=== PATIENT | female | born 1985 | race Caucasian/White ===

== ENCOUNTER 2016-09-19 16:57 | Emergency (ER) | payer MEDICAID ==
--- NOTE | 2016-09-19 17:14 | ER Document Report ---
ED Medical Screen (RME) - General Stated Complaint: CONGESTION Notes: onset was 2 weeks ago. c/o sinus congestion and pain with dark green drainage and productive cough. body aches and head ache. does have a history of asthma I have greeted and performed a rapid initial assessment of this patient. A comprehensive ED assessment and evaluation of the patient, analysis of test results and completion of the medical decision making process will be conducted by additional ED providers. TRAVEL OUTSIDE OF THE [place] IN LAST 30 DAYS: No - Related Data Allergies/Adverse Reactions: No Known Allergies Allergy (Verified 09/19/16 17:12) Past Medical History Pulmonary Medical History: Reports: Hx Asthma Past Surgical History: Reports: Hx Tonsillectomy - tubes in ers. Denies: Hx Tubal Ligation - Immunizations Hx Diphtheria, Pertussis, Tetanus Vaccination: Yes Physical Exam - Vital signs Vitals: Temp Pulse Resp BP Pulse Ox 97.7 F 92 18 124/71 100 09/19/16 17:11 09/19/16 17:11 09/19/16 17:11 09/19/16 17:11 09/19/16 17:11 Course - Vital Signs Vital signs: Temp Pulse Resp BP Pulse Ox 97.7 F 92 18 124/71 100 09/19/16 17:11 09/19/16 17:11 09/19/16 17:11 09/19/16 17:11 09/19/16 17:11
[2016-09-19] MEDS ORDERED: ACETAMINOPHEN 325 MG TABLET PO ONE (17:15)
--- NOTE | 2016-09-19 17:24 | ER Document Report ---
HPI - HPI Patient complains to provider of: head congestion, cough Onset: Other - 1 week Onset/Duration: Worse Quality of pain: Achy Pain Level: 4 Context: 31-year-old female has been sick for one month intermittently. She had amoxicillin and azithromycin for sinus infection last 08-30-16 she thought she was getting better but this past week she developed increased head congestion and a very congested cough. She is coughing up green sputum. No fever. No shortness of breath. No chest pain. No abdominal pain. No nausea vomiting or diarrhea. History of asthma Associated Symptoms: None Exacerbated by: Other - Leaning forward Relieved by: Denies Similar symptoms previously: No Recently seen / treated by doctor: No - ROS ROS below otherwise negative: Yes Systems Reviewed and Negative: Yes All other systems reviewed and negative - REPRODUCTIVE Reproductive: DENIES: : - DERM Skin Color: Normal Past Medical History - General Information source: Patient - Social History Smoking Status: Current Every Day Smoker Chew tobacco use (# tins/day): No Frequency of alcohol use: None Drug Abuse: None Lives with: Family Family History: Reviewed & Not Pertinent Patient has suicidal ideation: No Patient has homicidal ideation: No Pulmonary Medical History: Reports: Hx Asthma Renal/ Medical History: Denies: Hx Peritoneal Dialysis Past Surgical History: Reports: Hx Tonsillectomy - tubes in ers - Immunizations Hx Diphtheria, Pertussis, Tetanus Vaccination: Yes Vertical Provider Document - CONSTITUTIONAL Agree With Documented VS: Yes Exam Limitations: No Limitations - INFECTION CONTROL TRAVEL OUTSIDE OF THE [place] IN LAST 30 DAYS: No - HEENT HEENT: Normocephalic, Pharyngeal Erythema. negative: Conjuctival Injection, Tympanic Membrane Red, Tympanic Membrane Bulging Notes: Boggy nares - NECK Neck: Supple. negative: Lymphadenopathy-Left, Lymphadenopathy-Right - RESPIRATORY Respiratory: No Respiratory Distress, Wheezing - Inspiratory and expiratory coarse bilateral O2 Sat by Pulse Oximetry: 100 - CARDIOVASCULAR Cardiovascular: Regular Rate, Regular Rhythm - MUSCULOSKELETAL/EXTREMETIES Musculoskeletal/Extremeties: BUBBA CANALES - NEURO Level of Consciousness: Awake, Alert - DERM Integumentary: Warm, Dry, No Rash Course - Re-evaluation Re-evalutation: 09/19/16 18:09 Influenza is negative 09/19/16 18:42 Chest X-ray is negative 09/19/16 18:45 minimal wheeze after the nebulizer, feels better. - Vital Signs Vital signs: Temp Pulse Resp BP Pulse Ox 97.7 F 92 18 124/71 100 09/19/16 17:11 09/19/16 17:11 09/19/16 17:11 09/19/16 17:11 09/19/16 17:11 Discharge - Discharge Clinical Impression: Bronchitis, Wheezing Upper respiratory infection Qualifiers: URI type: acute nasopharyngitis (common cold) Qualified Code(s): J00 - Acute nasopharyngitis [common cold] Condition: Good Disposition: HOME, SELF-CARE Instructions: Acetaminophen, Upper Respiratory Illness ([facility]), Bronchitis With Bronchospasm (Wheezing) ([facility]) Additional Instructions: Use the inhaler, stop smoking Use the nebulizer every 4 hours as needed for cough and wheeze Finish the prednisone See your doctor for follow-up if you do not get better or new symptoms or feeling worse Prescriptions: Albuterol Sulfate [Ventolin 0.083% Neb 2.5 mg/3 mL Ampul] 2.5 mg NEB Q3HP PRN # 25 vial PRN Reason: Albuterol Sulfate [Proair HFA Inhalation Aerosol 8.5 gm MDI] 2 puff IH Q3HP PRN #1 [id number] PRN Reason: Prednisone [Deltasone 20 mg Tablet] 40 mg PO DAILY #8 tablet Forms: Return to Work
[2016-09-19] MEDS ORDERED: MECLIZINE HCL 25 MG TABLET PO ONE (17:43)
[2016-09-19] MEDS ORDERED: IPRATROPIUM/ALBUTEROL 0.5-2.5 MG/3 ML AMPUL NEB ONE (18:36)
[2016-09-19] MEDS ORDERED: PREDNISONE 20 MG TABLET PO ONE (18:42)
[2016-09-19 18:59] VITALS: BP 118/70
== END 2016-09-19 18:59 | disposition home or self-care (01) ==
LOC: ER 16:57
DX: J00 Acute nasopharyngitis [common cold] (principal); J40 Bronchitis, not specified as acute or chronic; R68.89 Other general symptoms and signs; F17.200 Nicotine dependence, unspecified, uncomplicated
CPT/HCPCS: 94640; 99284; 87804; 71020; J3490; J7512; J7620

== ENCOUNTER 2017-01-01 11:31 | Emergency (ER) | payer MEDICAID ==
[2017-01-01] MEDS ORDERED: IPRATROPIUM/ALBUTEROL 0.5-2.5 MG/3 ML AMPUL NEB ONE (12:04)
[2017-01-01] MEDS ORDERED: PREDNISOLONE SOD PHOS 15 MG/5 ML ORAL SYRING PO ONE (12:04)
[2017-01-01] MEDS ORDERED: PREDNISONE 20 MG TABLET PO ONE (12:07)
--- NOTE | 2017-01-01 12:09 | ER Document Report ---
ED Respiratory Problem - General Chief Complaint: Breathing Difficulty Stated Complaint: EAR PAIN,CHEST CONGESTION Time Seen by Provider: 01/01/17 12:04 Notes: Patient says that she has been having difficulty with her asthma since today afternoon. She has been coughing and producing yellow phlegm. Also has a left earache for the past 2 days. No vomiting. Unaware of any fever. Patient has a history of asthma for which she takes an albuterol inhaler. TRAVEL OUTSIDE OF THE [place] IN LAST 30 DAYS: No - Related Data Allergies/Adverse Reactions: No Known Allergies Allergy (Verified 01/01/17 11:42) Past Medical History - Social History Smoking Status: Former Smoker - Stopped about 6 months ago. Chew tobacco use (# tins/day): No Frequency of alcohol use: Occasional Drug Abuse: None Family History: Reviewed & Not Pertinent Patient has suicidal ideation: No Patient has homicidal ideation: No Pulmonary Medical History: Reports: Hx Asthma Renal/ Medical History: Denies: Hx Peritoneal Dialysis Past Surgical History: Reports: Hx Tonsillectomy - tubes in ers. Denies: Hx Tubal Ligation - Immunizations Hx Diphtheria, Pertussis, Tetanus Vaccination: Yes Review of Systems - Review of Systems Constitutional: denies: Fever Cardiovascular: Dyspnea. denies: Chest pain Respiratory: Cough - Active of some yellow phlegm Gastrointestinal: denies: Abdominal pain Genitourinary: No symptoms reported Skin: denies: Rash Physical Exam - Vital signs Vitals: Temp Pulse Resp BP Pulse Ox 97.7 F 81 18 132/82 H 100 01/01/17 11:43 01/01/17 11:43 01/01/17 11:43 01/01/17 11:43 01/01/17 11:43 Interpretation: Normal - Notes Notes: PHYSICAL EXAMINATION: GENERAL: Well-appearing, in no acute distress. Signs are all normal. HEAD: Atraumatic, normocephalic. ENT: oropharynx clear without exudates. Moist mucous membranes. Left TM is bright red throughout. NECK: Normal range of motion, supple. LUNGS: Scattered wheezes throughout both lung beasley. HEART: Regular rate and rhythm without murmurs. ABDOMEN: Soft, nontender. No guarding or rebound. BACK: No tenderness throughout entire back. EXTREMITIES: Normal range of motion without pain. Negative Homans bilateral. NEUROLOGICAL: Normal speech, normal gait. Normal sensory, motor, and reflex exams. Awake, alert, and oriented x3. Cranial nerves normal. SKIN: Warm, dry, no rashes. Course - Re-evaluation Re-evalutation: 01/01/17 13:09 After second neb, patient's lungs are almost clear without any significant wheezing heard. Better as well. Plan to discharge her on a short course of prednisone and a Z-David for her left ear infection and upper respiratory infection. A replacement for her pro-air inhaler will be provided. 01/01/17 13:20 Patient's lungs are clear to just a few scattered wheezes. - Vital Signs Vital signs: Temp Pulse Resp BP Pulse Ox 97.7 F 81 18 132/82 H 100 01/01/17 11:43 01/01/17 11:43 01/01/17 11:43 01/01/17 11:43 01/01/17 11:43 Discharge - Discharge Clinical Impression: Asthma Qualifiers: Asthma severity: mild persistent Asthma complication type: with acute exacerbation Qualified Code(s): J45.31 - Mild persistent asthma with (acute) exacerbation Condition: Stable Disposition: HOME, SELF-CARE Additional Instructions: Otitis Media You have a middle ear infection (otitis media). This is usually a complication of a cold or sore throat. The middle ear cavity becomes filled with infection. Pressure and stretching of the ear drum cause pain. Antibiotics are required. A 10 day course is usually prescribed. A decongestant may be recommended if you have a "runny nose." You may need anesthetic drops or other pain medication. A follow-up exam may be recommended to make sure the infection has completely cleared. If the ear begins to drain, it means the ear drum has ruptured. This will usually heal spontaneously. However, it means you should keep the ear dry until re-examined by a doctor. Call the physician or return for examination at once if there is severe headache, stiff neck, confusion, increasing fever, or dizziness. You should improve significantly within two days. If you're not better, call the doctor. ASTHMA: You have been diagnosed as having asthma. This is a condition where there is episodic tightness in the bronchial tubes. Allergies, infections, and polluted or cold air may be contributing factors. Emergency treatment of a severe asthma attack may include adrenaline shots , or bronchodilator aerosol. You may feel lightheaded, have a decreased exercise tolerance and a rapid pulse for an hour or two. Rest and get plenty of fluids. Home treatment of asthma requires bronchodilator drugs. These can be administered by injection, inhalation, or by mouth. Antibiotics and corticosteroids may be required for some patients. You should avoid chemical fumes, dusts, pollens, and exercising in very cold or dry air. If you smoke, stop!! If you develop a fever, increased wheezing, chest pain, or severe shortness of breath, you should contact the doctor immediately. STEROID MEDICATION: You have been given an injection of or oral medicine of the cortisone/ steroid class. This medication is used to control inflammation or allergy. Teo t is usually only given for a short period of time, until the acute process subsides. There are usually no side effects from short-term use of cortisone-like medications. Some persons feel an increased sense of well-being and are not sleepy at bedtime. Long-term use of cortisone medications is best avoided, unless required for a severe condition. If your condition does not remit, or relapses after the course of corticosteroid medication, you should consult your physician. INHALED BRONCHODILATORS: You have received treatment(s) of and/or prescription for an inhaled bronchodilator -- a medication which stimulates the airways in the lung to dilate. This improves the flow of air in asthma, bronchitis, and emphysema. These medicines have some similarity to adrenaline, and can cause similar side effects: shakiness, racing heart, and a sense of nervousness. These side effects decrease with time. Contact your doctor if these side effects are severe. Do not over-use the medicine. Too-frequent use of the inhaler may make it ineffective. Call your doctor if the inhaler is not controlling your symptoms at the prescribed doses. ANTIBIOTIC THERAPY: You have been given an antibiotic prescription. It's important that you take all the medication, unless instructed otherwise by your physician. Failure to complete the entire course can result in relapse of your condition. Common side effects of antibiotics include nausea, intestinal cramping, or diarrhea. Women may develop vaginal yeast infections, and babies can get yeast (thrush) in the mouth following the use of antibiotics. Contact your physician if you develop significant side effects from this medication. Allergy to this antibiotic can result in hives, wheezing, faintness, or itching. If symptoms of allergy occur, stop the medication and call your doctor. AZITHROMYCIN: Azithromycin (Zithromax) is a broad spectrum antibiotic in the same class as erythromycin. It can treat a variety of bacterial infections, but is most frequently used for respiratory infections. Azithromycin is extremely long-lasting. It accumulates in body tissues and continues to kill bacteria for many days. In order to improve absorption, Azithromycin should be taken at least one hour before or two hours after a meal. It does not have the same strong tendency to upset the stomach as erythromycin and is usually very well tolerated. Patients who have had a rash or other true allergic reactions to erythromycin should not take this medication. Call if you develop gastrointestinal distress, severe diarrhea, rash, hives, itching, or shortness of breath. USE OF ACETAMINOPHEN (Tylenol): Acetaminophen may be taken for pain relief or fever control. It's much safer than aspirin, offering a wider range of "safe" dosages. It is safe during . Some brand names are Tylenol, Panadol, Datril, Anacin 3, Tempra, and Liquiprin. Acetaminophen can be repeated every four hours. The following are maximum recommended dosages: WEIGHT Dose Drops Elixir Chewable( 80mg) (LBS.) drprs=droppers tsp=teaspoon 6 40 mg 0.4 ml (1/2) 6-11 80 mg 0.8 ml (full) tsp 1 tab 12-16 120 mg 1 1/2 drprs 3/4 tsp 1 1/2 tabs 17-23 160 mg 2 drprs 1 tsp 2 tabs 24-30 240 mg 3 drprs 1 1/2 tsp 3 tabs 30-35 320 mg 2 tsp 4 tabs 36-41 360 mg 2 1/4 tsp 4 1/2 tabs 42-47 400 mg 2 1/2 tsp 5 tabs 48-53 480 mg 3 tsp 6 tabs 54-59 520 mg 3 1/4 tsp 6 1/2 tabs 60-64 560 mg 3 1/2 tsp 7 tabs 65-70 600 mg 3 3/4 tsp 7 1/2 tabs 71-76 640 mg 4 tsp 8 tabs 77-82 720 mg 4 1/2 tsp 9 tabs 83-88 800 mg 5 tsp 10 tabs >89 pounds or adults 650 mg to 900 mg Acetaminophen can be repeated every four hours. Maximum dose not to exceed 4000 mg a day. These maximum recommended dosages are slightly higher than the dosages written on the product container, but these dosages are very safe and below the toxic dosage for acetaminophen. FOLLOW-UP CARE: If you have been referred to a physician for follow-up care, call the physician s office for an appointment as you were instructed or within the next two days. If you experience worsening or a significant change in your symptoms, notify the physician immediately or return to the Emergency Department at any time for re-evaluation. Prescriptions: Albuterol Sulfate [Proair HFA] 2 puff IH Q4 PRN #1 inhaler PRN Reason: Azithromycin [Zithromax 250 mg Tablet] 250 mg PO ASDIR PRN #6 tablet PRN Reason: Prednisone [Deltasone 20 mg Tablet] 3 tab PO DAILY 5 Days Forms: Return to Work
[2017-01-01] MEDS ORDERED: ALBUTEROL SULFATE 0.083% NEB 2.5 MG/3 ML AMPUL NEB ONE (12:39)
[2017-01-01 13:23] VITALS: BP 122/72
== END 2017-01-01 13:21 | disposition home or self-care (01) ==
LOC: ER 11:31
DX: J45.31 Mild persistent asthma with (acute) exacerbation (principal); R06.02 Shortness of breath; H92.02 Otalgia, left ear; R09.89 Other specified symptoms and signs involving the circulatory and respiratory systems; Z87.891 Personal history of nicotine dependence
CPT/HCPCS: 94640 ×2; 99284; J7512; J7620

== ENCOUNTER 2017-02-14 16:40 | Inpatient (IN) | payer MEDICAID ==
[2017-02-14] MEDS ORDERED: ONDANSETRON 4 MG TAB.RAPDIS PO ONE (17:39)
[2017-02-14] MEDS ORDERED: NORMAL SALINE 1000 ML 1,000 ML IV PRN ×2 (17:40→18:54)
[2017-02-14] MEDS ORDERED: DIPHENHYDRAMINE HCL 50 MG/ML VIAL IV ONE (17:41)
[2017-02-14] MEDS ORDERED: METOCLOPRAMIDE HCL INJ/PF 10 MG/2 ML SDV IV ONE (17:41)
--- NOTE | 2017-02-14 17:42 | ER Document Report ---
ED Medical Screen (RME) - General Chief Complaint: Flu Symptoms Stated Complaint: VOMITING Time Seen by Provider: 02/14/17 17:39 Mode of Arrival: Ambulatory Information source: Patient Notes: This is a 31-year-old female with no significant medical problems who presents to the emergency room with a 1 day history of nausea, vomiting, diffuse body aches, productive cough. Patient states she is not been able to tolerate any fluids or food. Normal menstrual period 1 month ago. Any vaginal discharge or vaginal bleeding. TRAVEL OUTSIDE OF THE [place] IN LAST 30 DAYS: No - Related Data Allergies/Adverse Reactions: No Known Allergies Allergy (Verified 01/01/17 11:42) Past Medical History - Social History Chew tobacco use (# tins/day): No Frequency of alcohol use: Rare Drug Abuse: None Pulmonary Medical History: Reports: Hx Asthma Renal/ Medical History: Denies: Hx Peritoneal Dialysis Past Surgical History: Reports: Hx Tonsillectomy - tubes in ers. Denies: Hx Tubal Ligation - Immunizations Hx Diphtheria, Pertussis, Tetanus Vaccination: Yes Physical Exam - Vital signs Vitals: Temp Pulse Resp BP Pulse Ox 98.9 F 129 H 20 108/44 L 98 02/14/17 16:44 02/14/17 16:44 02/14/17 16:44 02/14/17 16:44 02/14/17 16:44 Course - Vital Signs Vital signs: Temp Pulse Resp BP Pulse Ox 99.1 F 121 H 24 H 110/59 L 98 02/14/17 17:11 02/14/17 17:11 02/14/17 17:11 02/14/17 17:11 02/14/17 17:11
[2017-02-14 18:11] LABS: APPEARANCE,URINE SLIGHTLY-CLOUDY; BILIRUBIN,URINE NEGATIVE (NEGATIVE); GLUCOSE, URINE NEGATIVE (NEGATIVE); KETONES,URINE NEGATIVE (NEGATIVE); LEUKOCYTE ESTERASE,URINE NEGATIVE (NEGATIVE); NITRITE,URINE NEGATIVE (NEGATIVE); PROTEIN,URINE 30 mg/dL (NEGATIVE); URINE SPECIFIC GRAVITY 1.012; UROBILINOGEN,URINE NEGATIVE mg/dL (<2.0)
[2017-02-14 18:34] LABS: HEMATOCRIT 44.8 % (36.0-47.0); HEMOGLOBIN 13.8 g/dL (12.0-15.5); HGB HCT DIFFERENCE -3.4; MEAN CORPUSCULAR HEMOGLOBIN 26.5 pg (27.0-33.4); MEAN CORPUSCULAR HGB CONC 30.7 g/dL (32.0-36.0); MEAN CORPUSCULAR VOLUME 86 fl (80-97); RED CELL DISTRIBUTION WIDTH 14.8 % (11.5-14.0)
[2017-02-14 18:40] LABS: ALANINE AMINOTRANSFERASE 19 U/L (9-52); ALBUMIN 4.6 g/dL (3.5-5.0); ALKALINE PHOSPHATASE 90 U/L (38-126); ANION GAP 13 (5-19); ASPARTATE AMINO TRANSFERASE 25 U/L (14-36); BILIRUBIN,DIRECT 0.4 mg/dL (0.0-0.4); BILIRUBIN,TOTAL 1.1 mg/dL (0.2-1.3); BLOOD UREA NITROGEN 9 mg/dL (7-20); CALCIUM 9.4 mg/dL (8.4-10.2); CARBON DIOXIDE 25 mmol/L (22-30); CHLORIDE 101 mmol/L (98-107); CREATININE RESULT 0.73 mg/dL (0.52-1.25); GLUCOSE 90 mg/dL (75-110); POTASSIUM 3.8 mmol/L (3.6-5.0); SODIUM 139.3 mmol/L (137-145); TOTAL PROTEIN 8.4 g/dL (6.3-8.2)
[2017-02-14 18:45] LABS: BAND NEUTROPHILS % (MANUAL) 9 % (3-5); BASOPHILS % (MANUAL) 0 % (0-2); EOSINOPHILS % (MANUAL) 0 % (0-6); LYMPHOCYTES % (MANUAL) 2 % (13-45); TOTAL CELLS COUNTED 100
[2017-02-14 18:50] LABS: ANISOCYTOSIS SLIGHT; OVALOCYTES SLIGHT; POIKILOCYTOSIS SLIGHT; TOXIC GRANULATION SLIGHT
[2017-02-14 18:55] LABS: WHITE BLOOD COUNT 45.1 10^3/uL (4.0-10.5)
[2017-02-14 18:56] LABS: TOXIC VACUOLATION PRESENT
--- NOTE | 2017-02-14 19:52 | RADIOLOGY REPORT (SQ) ---
EXAM DESCRIPTION: CHEST PA/LAT COMPLETED DATE/TIME: 02/14/2017 7:43 pm REASON FOR STUDY: cough-productive COMPARISON: 09/19/2016 EXAM PARAMETERS: NUMBER OF VIEWS: two views TECHNIQUE: Digital Frontal and Lateral radiographic views of the chest acquired. RADIATION DOSE: NA LIMITATIONS: none FINDINGS: LUNGS AND PLEURA: New area of consolidation within the right upper lobe. Lungs and pleura l spaces otherwise clear. MEDIASTINUM AND HILAR STRUCTURES: No masses or contour abnormalities. HEART AND VASCULAR STRUCTURES: Heart normal size. No evidence for failure. BONES: No acute findings. HARDWARE: None in the chest. OTHER: No other significant finding. IMPRESSION: RIGHT UPPER LOBE CONSOLIDATION COMPATIBLE WITH PNEUMONIA. RECOMMEND FOLLOWUP RADIOGRAPH S IN 4 TO 6 WEEKS TO ENSURE RESOLUTION. TECHNICAL DOCUMENTATION: JOB ID: [id number]- All Rights Reserved
[2017-02-14] MEDS ORDERED: NORMAL SALINE 1000 ML 1,000 ML IV ONE (19:59)
[2017-02-14] MEDS ORDERED: AZITHROMYCIN 250 MG TABLET PO ONE (19:59)
[2017-02-14] MEDS ORDERED: CEFTRIAXONE 1 GM/D5W RTU 50 ML IV ONE (19:59)
[2017-02-14] MEDS ORDERED: KETOROLAC TROMETHAMINE INJ/PF 30 MG/1 ML SDV IV ONE (20:16)
--- NOTE | 2017-02-14 20:16 | ER Document Report ---
ED General - General Chief Complaint: Flu Symptoms Stated Complaint: VOMITING Time Seen by Provider: 02/14/17 17:39 Mode of Arrival: Ambulatory Notes: Patient is a 31-year-old female with a past medical history of asthma who presents with 1 day of progressively worsening body aches, cough with production of sputum, vomiting and diarrhea. Nothing improves or worsens her symptoms. She notes that she feels increasingly short of breath over the last several hours which prompted her come to the emergency department. She has not seen a primary care doctor regarding today's concerns. She has no history of similar symptoms in the past. No known sick contacts. She does not believe she has had a fever at home. History is otherwise limited as patient is in mild to moderate distress at time of assessment and requires rapid evaluation. TRAVEL OUTSIDE OF THE [place] IN LAST 30 DAYS: No - Related Data Allergies/Adverse Reactions: No Known Allergies Allergy (Verified 01/01/17 11:42) Home Medications: Current Home Medications Albuterol Sulfate [Ventolin Hfa] 1 puff IH Q6HP PRN 02/14/17 [History] Cetirizine HCl [Zyrtec 10 mg Tablet] 10 mg PO DAILYP PRN 02/14/17 [History] Past Medical History - General Information source: Patient - Social History Smoking Status: Former Smoker Chew tobacco use (# tins/day): No Frequency of alcohol use: Rare Drug Abuse: None Lives with: Spouse/Significant other Family History: Reviewed & Not Pertinent Pulmonary Medical History: Reports: Hx Asthma Renal/ Medical History: Denies: Hx Peritoneal Dialysis Past Surgical History: Reports: Hx Tonsillectomy - tubes in ers. Denies: Hx Tubal Ligation - Immunizations Hx Diphtheria, Pertussis, Tetanus Vaccination: Yes Review of Systems - Review of Systems Notes: Constitutional: Negative for fever. HENT: Negative for sore throat. Eyes: Negative for visual changes. Cardiovascular: Negative for chest pain. Respiratory: Positive for shortness of breath. Gastrointestinal: Negative for abdominal pain, positive for vomiting and diarrhea Genitourinary: Negative for dysuria. Musculoskeletal: Negative for back pain. Skin: Negative for rash. Neurological: Negative for headaches, weakness or numbness. 10 point ROS negative except as marked above and in HPI. Physical Exam - Vital signs Vitals: Temp Pulse Resp BP Pulse Ox 98.9 F 129 H 20 108/44 L 98 02/14/17 16:44 02/14/17 16:44 02/14/17 16:44 02/14/17 16:44 02/14/17 16:44 Interpretation: Tachycardic Notes: PHYSICAL EXAMINATION: GENERAL: Ill in appearance, shaking in the bed. HEAD: Atraumatic, normocephalic. EYES: Pupils equal round and reactive to light, extraocular movements intact, sclera anicteric, conjunctiva are normal. ENT: nares patent, oropharynx clear without exudates. Dry mucous membranes. NECK: Normal range of motion, supple without lymphadenopathy LUNGS: Diminished breath sounds at the right upper lobe. Scant expiratory wheezing in all lung beasley. HEART: Regular tachycardia without murmurs, gallops or rubs ABDOMEN: Soft, nontender, normoactive bowel sounds. No guarding, no rebound. No masses appreciated. EXTREMITIES: Normal range of motion, no pitting or edema. No cyanosis. NEUROLOGICAL: No focal neurological deficits. Moves all extremities spontaneously and on command. PSYCH: Somewhat somnolent SKIN: Warm, pale and diaphoretic Course - Re-evaluation Re-evalutation: 02/14/17 20:14 Patient presents with cough, shortness of breath, vomiting, diarrhea and general malaise. Patient is ill in appearance on initial assessment, coughing and an apparent mild respiratory distress. Immediately upon my assessment of this patient I contacted radiology and requested a stat chest x-ray as patient had findings consistent on exam with a right upper lobe pneumonia with extremely diminished breath sounds. This was confirmed on chest x-ray. Her labs are also remarkable for a very prominent leukocytosis at 43 with an associated 9% bandemia. Unfortunately in triage neither venous blood gas, lactate her blood cultures were obtained to these will all be obtained immediately. 2 L of IV fluid will be started and patient will be started on ceftriaxone and azithromycin for coverage of a community-acquired pneumonia. Will reassess frequently. 02/14/17 20:27 On reassessment, patient appears clinically unchanged. Work of breathing remains at 22 breaths per minute. I discussed this case with Dr. Dalton Maxwell who is agreed to admit the patient. 02/15/17 2100 Lactated is noted to be elevated at 3. This remains below a severe sepsis threshold. Patient is clinically improving at this time after receiving fluids , sitting up in bed although still appears ill in appearance. Work of breathing remains at approximately 22-24 breaths per minute. Care will be transferred to the hospitalist at this time. - Vital Signs Vital signs: Temp Pulse Resp BP Pulse Ox 99.7 F 124 H 18 109/57 L 97 02/14/17 23:30 02/15/17 02:00 02/14/17 23:30 02/14/17 23:30 02/14/17 23:30 - Laboratory Result Diagrams: 02/14/17 18:00 02/14/17 18:00 Laboratory results interpreted by me: 02/14/17 02/14/17 02/14/17 17:45 18:00 18:00 WBC 45.1 H* MCH 26.5 L MCHC 30.7 L RDW 14.8 H Seg Neuts % (Manual) 86 H Band Neutrophils % 9 H Lymphocytes % (Manual) 2 L Monocytes % (Manual) 1 L Metamyelocytes % 2 H Abs Neuts (Manual) 43.7 H Total Protein 8.4 H Urine Protein 30 H Urine Ascorbic Acid 20 H - Diagnostic Test Radiology reviewed: Image reviewed, Reports reviewed Radiology results interpreted by me: 02/14/17 20:15 Chest x-ray: Right upper lobe pneumonia Critical Care Note - Critical Care Note Total time excluding time spent on procedures (mins): 35 Comments: Critical care time spent obtaining history from patient or surrogate, discussions with consultants, development of treatment plan with patient or surrogate, evaluation of patient's response to treatment, examination of patient , ordering and performing treatments and interventions, ordering and review of laboratory studies, re-evaluation of patient's condition, ordering and review of radiographic studies and review of old charts Discharge - Discharge Clinical Impression: Increased lactic acid level Sepsis Qualifiers: Sepsis type: sepsis due to unspecified organism Qualified Code(s): A41.9 - Sepsis, unspecified organism Right upper lobe pneumonia Qualifiers: Pneumonia type: due to unspecified organism Qualified Code(s): J18.1 - Lobar pneumonia, unspecified organism Condition: Fair Disposition: ADMITTED INPATIENT Admitting Provider: [place] [facility] Admitted: Telemetry
[2017-02-14] MEDS ORDERED: IPRATROPIUM/ALBUTEROL 0.5-2.5 MG/3 ML AMPUL NEB ONE (20:28)
[2017-02-14] MEDS ORDERED: GUAIFENESIN SYRP 200 MG/10 ML UDC PO PRN (20:29)
[2017-02-14] MEDS ORDERED: ACETAMINOPHEN 325 MG TABLET PO PRN (20:29)
[2017-02-14] MEDS ORDERED: IPRATROPIUM/ALBUTEROL 0.5-2.5 MG/3 ML AMPUL NEB PRN (20:29)
[2017-02-14] MEDS ORDERED: NORMAL SALINE 1000 ML 1,000 ML IV SCH (20:30)
[2017-02-14 21:00] LABS: VENOUS BLOOD HCO3 24.3 mmol/L (20-32); VENOUS BLOOD PCO2 53.2 mmHg (35-63); VENOUS BLOOD PH 7.28 (7.30-7.42)
[2017-02-14] MEDS ORDERED: LEVOFLOXACIN 750 MG/D5W RTU 750 MG/150 ML RTUPB IV SCH (21:00)
[2017-02-14] MEDS ORDERED: LEVOFLOXACIN RTU 750 MG/D5W 150 ML IV ONE (21:30)
[2017-02-14] MEDS: GUAIFENESIN 600 MG TABLET.SA PO SCH (22:30)
[2017-02-14] MEDS: KETOROLAC TROMETHAMINE INJ/PF 30 MG/1 ML SDV IV PRN (22:37)
[2017-02-14] MEDS: HEPARIN SOD (PORCINE) 5,000 UNIT/ML 1 ML SYRINGE SUBCUT SCH (22:38)
--- NOTE | 2017-02-14 23:01 | PDOC H&P ---
History of Present Illness Admission Date/PCP: 02/14/17 20:29 Patient complains of: Cough and fever History of Present Illness: BETTE COVARRUBIAS is a 31 year old female with a past medical history is been her usual state of health until approximately 12 hours prior to presentation. With rhinorrhea headache subjective fever and chills nonproductive cough shortness of breath pleuritic chest pain on the right side. In the emergency room she is found to have severe sepsis with hypotension, hypoxia, tachycardia, right upper lobe infiltrate and bandemia. She denies infectious contacts she denies prior pneumonia or other recent antibiotics she otherwise had felt well. Past Medical History Medical History: None Pulmonary Medical History: Reports: Asthma Past Surgical History Past Surgical History: Reports: Tonsillectomy - tubes in ers Denies: Tubal Ligation Social History Information Source: Patient Smoking Status: Former Smoker Frequency of Alcohol Use: None Drugs: None - Advance Directive Resuscitation Status: Full Code Family History Family History: COPD Parental Family History Reviewed: Yes Children Family History Reviewed: Yes Sibling(s) Family History Reviewed.: Yes Medication/Allergy Home Medications: Albuterol Sulfate [Ventolin Hfa] 1 puff IH Q6HP PRN 02/14/17 Cetirizine HCl [Zyrtec 10 mg Tablet] 10 mg PO DAILYP PRN 02/14/17 Allergies/Adverse Reactions: No Known Allergies Allergy (Verified 01/01/17 11:42) Review of Systems Constitutional: ABSENT: chills, fever(s), headache(s), weight gain, weight loss Eyes: ABSENT: visual disturbances Ears: ABSENT: hearing changes Cardiovascular: ABSENT: chest pain, dyspnea on exertion, edema, orthropnea, palpitations Respiratory: ABSENT: cough, hemoptysis Gastrointestinal: ABSENT: abdominal pain, constipation, diarrhea, hematemesis, hematochezia, nausea, vomiting Genitourinary: ABSENT: dysuria, hematuria Musculoskeletal: ABSENT: joint swelling Integumentary: ABSENT: rash, wounds Neurological: ABSENT: abnormal gait, abnormal speech, confusion, dizziness, focal weakness, syncope Psychiatric: ABSENT: anxiety, depression, homidical ideation, suicidal ideation Endocrine: ABSENT: cold intolerance, heat intolerance, polydipsia, polyuria Hematologic/Lymphatic: ABSENT: easy bleeding, easy bruising Physical Exam Vital Signs: Temp Pulse Resp BP Pulse Ox 98.5 F 116 H 19 105/57 L 95 02/14/17 22:20 02/14/17 22:20 02/14/17 22:20 02/14/17 22:20 02/14/17 22:20 Intake & Output 02/13/17 02/14/17 02/15/17 11:59 11:59 11:59 Weight 92.2 kg General appearance: PRESENT: cooperative, mild distress, well-developed, well- nourished Head exam: PRESENT: atraumatic, normocephalic Eye exam: PRESENT: conjunctiva pink, EOMI, PERRLA. ABSENT: scleral icterus Ear exam: PRESENT: normal external ear exam Mouth exam: PRESENT: dry mucosa, tongue midline Neck exam: ABSENT: carotid bruit, JVD, lymphadenopathy, thyromegaly Respiratory exam: PRESENT: crackles, decreased breath sounds, rales, retraction , rhonchi, tachypnea. ABSENT: wheezes Cardiovascular exam: PRESENT: gallop, RRR, tachycardia. ABSENT: diastolic murmur, rubs, systolic murmur Pulses: PRESENT: normal dorsalis pedis pul Vascular exam: PRESENT: normal capillary refill GI/Abdominal exam: PRESENT: normal bowel sounds, soft. ABSENT: distended, guarding, mass, organolmegaly, rebound, tenderness Rectal exam: PRESENT: deferred Extremities exam: PRESENT: full ROM. ABSENT: calf tenderness, clubbing, pedal edema Neurological exam: PRESENT: alert, awake, oriented to person, oriented to place , oriented to time, oriented to situation, CN II-XII grossly intact. ABSENT: motor sensory deficit Psychiatric exam: PRESENT: appropriate affect, normal mood. ABSENT: homicidal ideation, suicidal ideation Skin exam: PRESENT: dry, intact, warm. ABSENT: cyanosis, rash Results Laboratory Results: 02/14/17 02/14/17 20:36 20:36 VBG pH 7.28 L VBG pCO2 53.2 VBG HCO3 24.3 VBG Base Excess -3.0 Lactic Acid 3.0 H Impressions: Chest X-Ray 02/14/17 17:40 IMPRESSION: RIGHT UPPER LOBE CONSOLIDATION COMPATIBLE WITH PNEUMONIA. RECOMMEND FOLLOWUP RADIOGRAPHS IN 4 TO 6 WEEKS TO ENSURE RESOLUTION. Assessment & Plan - Diagnosis (1) Severe sepsis Is this a current diagnosis for this admission?: YesPlan: Secondary to pneumonia, IV fluid challenge consideration of steroids and pressors, reevaluation of chemistry and serial vitals (2) Right upper lobe pneumonia Qualifiers: Pneumonia type: due to unspecified organism Qualified Code(s): J18.1 - Lobar pneumonia, unspecified organism Is this a current diagnosis for this admission?: YesPlan: Pneumonia care set empiric antibiotics, albuterol and Atrovent, incentive spirometry blood and sputum culture follow-up CBC, culture and chemistry (3) Chest pain Is this a current diagnosis for this admission?: YesPlan: Sharp pleuritic in nature reproduced with cough on the right side, incentive spirometry and symptomatic management - Time Time Spent: 30 to 50 Minutes - Inpatient Certification Medical Necessity: Need Close Monitoring Due to Risk of Patient Decompensation
[2017-02-15] MEDS ORDERED: OXYCODONE-ACETAMINOPHEN 5-325 MG TABLET ONE (01:15)
[2017-02-15] MEDS ORDERED: OXYCODONE-ACETAMINOPHEN 5-325 MG TABLET PO PRN (01:53)
[2017-02-15] MEDS: IPRATROPIUM/ALBUTEROL 0.5-2.5 MG/3 ML AMPUL NEB SCH ×4 (02:15→20:36)
[2017-02-15] MEDS: HEPARIN SOD (PORCINE) 5,000 UNIT/ML 1 ML SYRINGE SUBCUT SCH ×3 (05:17→21:21)
[2017-02-15] MEDS: KETOROLAC TROMETHAMINE INJ/PF 30 MG/1 ML SDV IV PRN (05:55)
[2017-02-15 06:08] LABS: HEMATOCRIT 33.2 % (36.0-47.0); HGB HCT DIFFERENCE -1.7; MEAN CORPUSCULAR HEMOGLOBIN 27.2 pg (27.0-33.4); MEAN CORPUSCULAR HGB CONC 31.6 g/dL (32.0-36.0); MEAN CORPUSCULAR VOLUME 86 fl (80-97); RED BLOOD COUNT 3.86 10^6/uL (3.72-5.28)
[2017-02-15 06:15] LABS: ANION GAP 7 (5-19); BLOOD UREA NITROGEN 9 mg/dL (7-20); CALCIUM 7.6 mg/dL (8.4-10.2); CARBON DIOXIDE 21 mmol/L (22-30); CHLORIDE 109 mmol/L (98-107); CREATININE RESULT 0.72 mg/dL (0.52-1.25); GLUCOSE 81 mg/dL (75-110); POTASSIUM 4.2 mmol/L (3.6-5.0); SODIUM 137.1 mmol/L (137-145)
[2017-02-15 06:17] LABS: HEMOGLOBIN 10.5 g/dL (12.0-15.5); WHITE BLOOD COUNT 34.5 10^3/uL (4.0-10.5)
[2017-02-15 06:31] LABS: BAND NEUTROPHILS % (MANUAL) 9 % (3-5); BASOPHILS % (MANUAL) 0 % (0-2); EOSINOPHILS % (MANUAL) 0 % (0-6); LYMPHOCYTES % (MANUAL) 1 % (13-45); TOTAL CELLS COUNTED 100
[2017-02-15 06:47] LABS: ANISOCYTOSIS SLIGHT; HYPOCHROMASIA SLIGHT; OVALOCYTES SLIGHT; POIKILOCYTOSIS SLIGHT
[2017-02-15] MEDS ORDERED: CETIRIZINE 10 MG TABLET PO PRN (07:36)
[2017-02-15] MEDS ORDERED: METHYLPREDNISOLONE INJ 125 MG/2 ML SDV IV ONE (11:35)
[2017-02-15] MEDS: LEVOFLOXACIN RTU 750 MG/D5W 150 ML IV SCH (12:07)
[2017-02-15] MEDS: GUAIFENESIN 600 MG TABLET.SA PO SCH ×2 (12:07→21:21)
--- NOTE | 2017-02-15 12:47 | PDOC PROGRESS REPORT ---
Subjective Progress Note for:: 02/15/17 Subjective:: Patient is seen on morning rounds. She is resting in bed,. She states she is feeling better than she did when she came in but does not feel well. She complains of pain in right upper chest with deep inspiration. She states she is coughing but nothing productively. She states her symptoms began and have progressed rapidly. She verbalizes no other complaints. Remaining review of systems is negative. Physical Exam Vital Signs: Temp Pulse Resp BP Pulse Ox 99.5 F 98 16 99/54 L 94 02/15/17 07:25 02/15/17 08:53 02/15/17 08:53 02/15/17 07:25 02/15/17 08:53 Intake & Output 02/14/17 02/15/17 02/16/17 06:59 06:59 06:59 Intake Total 1750 Output Total 0 Balance 1750 Weight 92.2 kg General appearance: PRESENT: no acute distress, obese, well-developed, well- nourished Head exam: PRESENT: atraumatic, normocephalic Eye exam: PRESENT: conjunctiva pale Ear exam: PRESENT: normal external ear exam Mouth exam: PRESENT: moist, tongue midline Neck exam: ABSENT: carotid bruit, JVD, lymphadenopathy, thyromegaly Respiratory exam: PRESENT: decreased breath sounds, rhonchi - right, symmetrical , unlabored Cardiovascular exam: PRESENT: RRR. ABSENT: diastolic murmur, rubs, systolic murmur Pulses: PRESENT: normal dorsalis pedis pul Vascular exam: PRESENT: normal capillary refill GI/Abdominal exam: PRESENT: normal bowel sounds, soft. ABSENT: distended, guarding, mass, organolmegaly, rebound, tenderness Rectal exam: PRESENT: deferred Extremities exam: PRESENT: full ROM. ABSENT: calf tenderness, clubbing, pedal edema Neurological exam: PRESENT: alert, awake, oriented to person, oriented to place , oriented to time, oriented to situation, CN II-XII grossly intact. ABSENT: motor sensory deficit Psychiatric exam: PRESENT: appropriate affect, normal mood. ABSENT: homicidal ideation, suicidal ideation Skin exam: PRESENT: dry, intact, warm. ABSENT: cyanosis, rash Results Laboratory Results: 02/15/17 05:34 02/15/17 05:34 02/14/17 02/14/17 02/15/17 20:36 20:36 01:01 WBC RBC Hgb Hct MCV MCH MCHC RDW Plt Count Seg Neutrophils % Lymphocytes % Monocytes % Eosinophils % Basophils % Absolute Neutrophils Absolute Lymphocytes Absolute Monocytes Absolute Eosinophils Absolute Basophils VBG pH 7.28 L VBG pCO2 53.2 VBG HCO3 24.3 VBG Base Excess -3.0 Sodium Potassium Chloride Carbon Dioxide Anion Gap BUN Creatinine Est GFR ( Amer) Est GFR (Non-Af Amer) Glucose Lactic Acid 3.0 H 2.1 Calcium 02/15/17 02/15/17 05:34 05:34 WBC 34.5 H* RBC 3.86 Hgb 10.5 L D Hct 33.2 L MCV 86 MCH 27.2 MCHC 31.6 L RDW 15.0 H Plt Count 278 Seg Neutrophils % Not Reportable Lymphocytes % Not Reportable Monocytes % Not Reportable Eosinophils % Not Reportable Basophils % Not Reportable Absolute Neutrophils Not Reportable Absolute Lymphocytes Not Reportable Absolute Monocytes Not Reportable Absolute Eosinophils Not Reportable Absolute Basophils Not Reportable VBG pH VBG pCO2 VBG HCO3 VBG Base Excess Sodium 137.1 Potassium 4.2 Chloride 109 H Carbon Dioxide 21 L Anion Gap 7 BUN 9 Creatinine 0.72 Est GFR ( Amer) > 60 Est GFR (Non-Af Amer) > 60 Glucose 81 Lactic Acid Calcium 7.6 L Impressions: Chest X-Ray 02/14/17 17:40 IMPRESSION: RIGHT UPPER LOBE CONSOLIDATION COMPATIBLE WITH PNEUMONIA. RECOMMEND FOLLOWUP RADIOGRAPHS IN 4 TO 6 WEEKS TO ENSURE RESOLUTION. Assessment & Plan - Diagnosis (1) Right upper lobe pneumonia Qualifiers: Pneumonia type: due to unspecified organism Qualified Code(s): J18.1 - Lobar pneumonia, unspecified organism Is this a current diagnosis for this admission?: YesPlan: Will continue IV broad spectrum antibiotics, IV steroids and nebulizer treatment. Will send urine for legionella antigen (2) Sepsis Qualifiers: Sepsis type: sepsis due to unspecified organism Qualified Code(s): A41.9 - Sepsis, unspecified organism Is this a current diagnosis for this admission?: YesPlan: Improving with fluid and antibiotic therapy. Tachycardia and hypotension have improved. Still with low grade fever (3) Anemia Qualifiers: Anemia type: iron deficiency (4) Asthma Qualifiers: Asthma severity: mild intermittent Is this a current diagnosis for this admission?: YesPlan: Continue nebulizer treatments, will add IV steroids (5) Chest pain Qualifiers: Chest pain type: chest pain on breathing Qualified Code(s): R07.1 - Chest pain on breathing Is this a current diagnosis for this admission?: Yes - Time Time Spent with patient: 25-34 minutes Critical Time spent with patient: 15-24 minutes Medications reviewed and adjusted accordingly: Yes - Inpatient Certification Based on my medical assessment, after consideration of the patient's comorbidities, presenting symptoms, or acuity I expect that the services needed warrant INPATIENT care.: Yes I certify that my determination is in accordance with my understanding of Medicare's requirements for reasonable and necessary INPATIENT services [42 CFR 412.3e].: Yes
[2017-02-15] MEDS: OXYCODONE-ACETAMINOPHEN 5-325 MG TABLET PO PRN ×3 (12:55→21:21)
[2017-02-15] MEDS: METHYLPREDNISOLONE INJ 125 MG/2 ML SDV IV SCH ×2 (14:17→21:21)
[2017-02-16] MEDS: OXYCODONE-ACETAMINOPHEN 5-325 MG TABLET PO PRN ×5 (01:39→20:13)
[2017-02-16] MEDS: IPRATROPIUM/ALBUTEROL 0.5-2.5 MG/3 ML AMPUL NEB SCH ×4 (02:26→19:50)
[2017-02-16 05:17] LABS: HEMOGLOBIN 10.2 g/dL (12.0-15.5); HGB HCT DIFFERENCE -1.4; MEAN CORPUSCULAR HEMOGLOBIN 27.3 pg (27.0-33.4); MEAN CORPUSCULAR HGB CONC 31.9 g/dL (32.0-36.0); MEAN CORPUSCULAR VOLUME 85 fl (80-97); RED BLOOD COUNT 3.74 10^6/uL (3.72-5.28); RED CELL DISTRIBUTION WIDTH 15.3 % (11.5-14.0); WHITE BLOOD COUNT 28.8 10^3/uL (4.0-10.5)
[2017-02-16 05:31] LABS: ANION GAP 10 (5-19); BLOOD UREA NITROGEN 11 mg/dL (7-20); CALCIUM 9.1 mg/dL (8.4-10.2); CARBON DIOXIDE 20 mmol/L (22-30); CHLORIDE 109 mmol/L (98-107); CREATININE RESULT 0.64 mg/dL (0.52-1.25); GLUCOSE 270 mg/dL (75-110); POTASSIUM 3.7 mmol/L (3.6-5.0); SODIUM 138.9 mmol/L (137-145)
[2017-02-16 05:38] LABS: BASOPHILS % (MANUAL) 0 % (0-2); EOSINOPHILS % (MANUAL) 0 % (0-6); LYMPHOCYTES % (MANUAL) 2 % (13-45); TOTAL CELLS COUNTED 100
[2017-02-16 05:40] LABS: ANISOCYTOSIS SLIGHT; PLATELET CLUMPS PRESENT; TOXIC GRANULATION SLIGHT
[2017-02-16 05:41] LABS: TARGET CELLS SLIGHT
[2017-02-16 05:43] LABS: POIKILOCYTOSIS SLIGHT; POLYCHROMASIA SLIGHT
[2017-02-16 05:44] LABS: OVALOCYTES SLIGHT
[2017-02-16 05:45] LABS: BAND NEUTROPHILS % (MANUAL) 12 % (3-5); BURR CELLS 1+
[2017-02-16 05:46] LABS: TOXIC VACUOLATION PRESENT
[2017-02-16] MEDS: HEPARIN SOD (PORCINE) 5,000 UNIT/ML 1 ML SYRINGE SUBCUT SCH ×3 (06:45→21:49)
[2017-02-16] MEDS: METHYLPREDNISOLONE INJ 125 MG/2 ML SDV IV SCH ×3 (06:45→21:49)
[2017-02-16] MEDS: GUAIFENESIN 600 MG TABLET.SA PO SCH ×2 (09:32→21:49)
[2017-02-16] MEDS: LEVOFLOXACIN RTU 750 MG/D5W 150 ML IV SCH (09:32)
[2017-02-16] MEDS: CEFEPIME 2 GM/D5W RTU 50 ML IV SCH ×2 (12:18→21:49)
--- NOTE | 2017-02-16 13:15 | PDOC PROGRESS REPORT ---
Subjective Progress Note for:: 02/16/17 Subjective:: Patient is seen on morning rounds. She is resting in bed,. She states she is feeling much better than she did yesterday. She has been able to cough productively. She complains of pain in right upper chest with deep inspiration. Her appetite is back to normal. She states her symptoms began and have progressed rapidly. She verbalizes no other complaints. Remaining review of systems is negative. Physical Exam Vital Signs: Temp Pulse Resp BP Pulse Ox 97.7 F 73 16 106/61 96 02/16/17 10:49 02/16/17 10:49 02/16/17 10:49 02/16/17 10:49 02/16/17 10:49 Intake & Output 02/15/17 02/16/17 02/17/17 06:59 06:59 06:59 Intake Total 1750 1430 Output Total 0 1320 Balance 1750 110 Weight 92.2 kg 92.5 kg General appearance: PRESENT: no acute distress, obese, well-developed, well- nourished Head exam: PRESENT: atraumatic, normocephalic Eye exam: PRESENT: conjunctiva pink, EOMI, PERRLA. ABSENT: scleral icterus Ear exam: PRESENT: normal external ear exam Mouth exam: PRESENT: moist, tongue midline Neck exam: ABSENT: carotid bruit, JVD, lymphadenopathy, thyromegaly Respiratory exam: PRESENT: rhonchi, symmetrical, unlabored. ABSENT: rales, wheezes Cardiovascular exam: PRESENT: RRR. ABSENT: diastolic murmur, rubs, systolic murmur Pulses: PRESENT: normal dorsalis pedis pul Vascular exam: PRESENT: normal capillary refill GI/Abdominal exam: PRESENT: normal bowel sounds, soft. ABSENT: distended, guarding, mass, organolmegaly, rebound, tenderness Rectal exam: PRESENT: deferred Extremities exam: PRESENT: full ROM. ABSENT: calf tenderness, clubbing, pedal edema Neurological exam: PRESENT: alert, awake, oriented to person, oriented to place , oriented to time, oriented to situation, CN II-XII grossly intact. ABSENT: motor sensory deficit Psychiatric exam: PRESENT: appropriate affect, normal mood. ABSENT: homicidal ideation, suicidal ideation Skin exam: PRESENT: dry, intact, warm. ABSENT: cyanosis, rash Results Laboratory Results: 02/16/17 04:14 07/09/17 04:14 02/16/17 02/16/17 04:14 04:14 WBC 28.8 H RBC 3.74 Hgb 10.2 L Hct 32.0 L MCV 85 MCH 27.3 MCHC 31.9 L RDW 15.3 H Plt Count 259 Seg Neutrophils % Not Reportable Lymphocytes % Not Reportable Monocytes % Not Reportable Eosinophils % Not Reportable Basophils % Not Reportable Absolute Neutrophils Not Reportable Absolute Lymphocytes Not Reportable Absolute Monocytes Not Reportable Absolute Eosinophils Not Reportable Absolute Basophils Not Reportable Sodium 138.9 Potassium 3.7 Chloride 109 H Carbon Dioxide 20 L Anion Gap 10 BUN 11 Creatinine 0.64 Est GFR ( Amer) > 60 Est GFR (Non-Af Amer) > 60 Glucose 270 H Calcium 9.1 Impressions: Chest X-Ray 02/14/17 17:40 IMPRESSION: RIGHT UPPER LOBE CONSOLIDATION COMPATIBLE WITH PNEUMONIA. RECOMMEND FOLLOWUP RADIOGRAPHS IN 4 TO 6 WEEKS TO ENSURE RESOLUTION. Assessment & Plan - Diagnosis (1) Right upper lobe pneumonia Qualifiers: Pneumonia type: due to unspecified organism Qualified Code(s): J18.1 - Lobar pneumonia, unspecified organism Is this a current diagnosis for this admission?: YesPlan: Will continue IV broad spectrum antibiotics, IV steroids and nebulizer treatment. Will send urine for legionella antigen (2) Sepsis Qualifiers: Sepsis type: sepsis due to unspecified organism Qualified Code(s): A41.9 - Sepsis, unspecified organism Is this a current diagnosis for this admission?: YesPlan: Improving with fluid and antibiotic therapy. Tachycardia and hypotension have improved. No fever in 24 hrs (3) Anemia Qualifiers: Anemia type: iron deficiency (4) Asthma Qualifiers: Asthma severity: mild intermittent Is this a current diagnosis for this admission?: YesPlan: Continue nebulizer treatments, will add IV steroids (5) Chest pain Qualifiers: Chest pain type: chest pain on breathing Qualified Code(s): R07.1 - Chest pain on breathing Is this a current diagnosis for this admission?: YesPlan: Continue IV steroids and taper - Time Time Spent with patient: 25-34 minutes Critical Time spent with patient: 15-24 minutes Medications reviewed and adjusted accordingly: Yes Anticipated discharge: Home with Homehealth
[2017-02-16] MEDS ORDERED: VANCOMYCIN HCL 0 MG in DEXTROSE 5%-WATER 250 ML IV NR (13:45)
[2017-02-16] MEDS: VANCOMYCIN HCL 1,500 MG in DEXTROSE 5%-WATER 250 ML IV SCH (17:46)
[2017-02-16] MEDS ORDERED: MAG HYDROX/AL HYDROX/SIMETH SUSP 30 ML UDCUP PO PRN (18:37)
[2017-02-16] MEDS ORDERED: DEXTROSE 50%-WATER 25 GM/50 ML DISP.SYRIN IV PRN ×2 (18:38)
[2017-02-16] MEDS ORDERED: GLUCAGON,HUMAN RECOMB 1 MG INJ IM PRN (18:38)
[2017-02-16] MEDS ORDERED: INSULIN LISPRO 100 UNIT/ML 3 ML VIAL SUBCUT PRN (18:38)
[2017-02-16] MEDS ORDERED: DEXTROSE 40% GEL 15 GM TUBE PO PRN ×2 (18:38)
[2017-02-16] MEDS ORDERED: FAMOTIDINE 20 MG TABLET PO ONE (19:30)
[2017-02-16] MEDS ORDERED: INSULIN GLARGINE,HUM.REC.ANLOG 300 UNIT/3 ML INSULN.PEN SUBCUT SCH (22:00)
[2017-02-17] MEDS: IPRATROPIUM/ALBUTEROL 0.5-2.5 MG/3 ML AMPUL NEB SCH ×4 (01:51→20:46)
[2017-02-17] MEDS: OXYCODONE-ACETAMINOPHEN 5-325 MG TABLET PO PRN ×4 (02:22→17:36)
[2017-02-17] MEDS: VANCOMYCIN HCL 1,500 MG in DEXTROSE 5%-WATER 250 ML IV SCH ×3 (02:24→18:44)
[2017-02-17] MEDS: HEPARIN SOD (PORCINE) 5,000 UNIT/ML 1 ML SYRINGE SUBCUT SCH ×3 (06:24→22:34)
[2017-02-17] MEDS: METHYLPREDNISOLONE INJ 125 MG/2 ML SDV IV SCH (06:24)
[2017-02-17 06:46] LABS: HEMATOCRIT 32.2 % (36.0-47.0); HEMOGLOBIN 10.3 g/dL (12.0-15.5); HGB HCT DIFFERENCE -1.3; MEAN CORPUSCULAR HEMOGLOBIN 27.3 pg (27.0-33.4); MEAN CORPUSCULAR HGB CONC 32.1 g/dL (32.0-36.0); MEAN CORPUSCULAR VOLUME 85 fl (80-97); RED BLOOD COUNT 3.78 10^6/uL (3.72-5.28); RED CELL DISTRIBUTION WIDTH 15.6 % (11.5-14.0); WHITE BLOOD COUNT 26.5 10^3/uL (4.0-10.5)
[2017-02-17 06:54] LABS: ANION GAP 9 (5-19); BLOOD UREA NITROGEN 15 mg/dL (7-20); CALCIUM 9.1 mg/dL (8.4-10.2); CARBON DIOXIDE 23 mmol/L (22-30); CHLORIDE 107 mmol/L (98-107); CREATININE RESULT 0.66 mg/dL (0.52-1.25); GLUCOSE 115 mg/dL (75-110); POTASSIUM 4.4 mmol/L (3.6-5.0)
[2017-02-17 07:08] LABS: ANISOCYTOSIS SLIGHT; BASOPHILS % (MANUAL) 0 % (0-2); EOSINOPHILS % (MANUAL) 0 % (0-6); LYMPHOCYTES % (MANUAL) 0 % (13-45); TOTAL CELLS COUNTED 100; TOXIC GRANULATION 1+
[2017-02-17 07:09] LABS: POLYCHROMASIA SLIGHT
[2017-02-17] MEDS: GUAIFENESIN 600 MG TABLET.SA PO SCH ×2 (09:08→22:34)
[2017-02-17] MEDS: CEFEPIME 2 GM/D5W RTU 50 ML IV SCH ×2 (09:08→22:34)
[2017-02-17] MEDS: FAMOTIDINE 20 MG TABLET PO SCH ×2 (09:08→22:34)
[2017-02-17] MEDS: LEVOFLOXACIN RTU 750 MG/D5W 150 ML IV SCH (09:55)
--- NOTE | 2017-02-17 13:20 | PDOC PROGRESS REPORT ---
Subjective Progress Note for:: 02/17/17 Subjective:: Patient is seen on morning rounds. She is resting in bed,. She states she is feeling much better than she did yesterday. She has been able to cough productively. She complains of pain in right upper chest with deep inspiration. Her appetite is back to normal. She states her symptoms began and have progressed rapidly. She verbalizes no other complaints. Remaining review of systems is negative. Physical Exam Vital Signs: Temp Pulse Resp BP Pulse Ox 97.6 F 76 16 133/76 H 97 02/17/17 11:41 02/17/17 11:41 02/17/17 11:41 02/17/17 11:41 02/17/17 11:41 Intake & Output 02/16/17 02/17/17 02/18/17 06:59 06:59 06:59 Intake Total 1430 2376 Output Total 1320 900 Balance 110 1476 Weight 92.5 kg 92.6 kg General appearance: PRESENT: no acute distress, well-developed, well-nourished Head exam: PRESENT: atraumatic, normocephalic Eye exam: PRESENT: conjunctiva pink, EOMI, PERRLA. ABSENT: scleral icterus Ear exam: PRESENT: normal external ear exam Mouth exam: PRESENT: moist, tongue midline Neck exam: ABSENT: carotid bruit, JVD, lymphadenopathy, thyromegaly Respiratory exam: PRESENT: rhonchi, symmetrical. ABSENT: rales, wheezes Cardiovascular exam: PRESENT: RRR. ABSENT: diastolic murmur, rubs, systolic murmur Pulses: PRESENT: normal dorsalis pedis pul Vascular exam: PRESENT: normal capillary refill GI/Abdominal exam: PRESENT: normal bowel sounds, soft. ABSENT: distended, guarding, mass, organolmegaly, rebound, tenderness Rectal exam: PRESENT: deferred Extremities exam: PRESENT: full ROM. ABSENT: calf tenderness, clubbing, pedal edema Musculoskeletal exam: PRESENT: ambulatory, full ROM, normal inspection Neurological exam: PRESENT: alert, awake, oriented to person, oriented to place , oriented to time, oriented to situation, CN II-XII grossly intact. ABSENT: motor sensory deficit Psychiatric exam: PRESENT: appropriate affect, normal mood. ABSENT: homicidal ideation, suicidal ideation Skin exam: PRESENT: dry, intact, warm. ABSENT: cyanosis, rash Results Laboratory Results: 02/17/17 05:55 02/17/17 05:55 02/17/17 02/17/17 05:55 05:55 WBC 26.5 H RBC 3.78 Hgb 10.3 L Hct 32.2 L MCV 85 MCH 27.3 MCHC 32.1 RDW 15.6 H Plt Count 359 Seg Neutrophils % Not Reportable Lymphocytes % Not Reportable Monocytes % Not Reportable Eosinophils % Not Reportable Basophils % Not Reportable Absolute Neutrophils Not Reportable Absolute Lymphocytes Not Reportable Absolute Monocytes Not Reportable Absolute Eosinophils Not Reportable Absolute Basophils Not Reportable Sodium 139.0 Potassium 4.4 Chloride 107 Carbon Dioxide 23 Anion Gap 9 BUN 15 Creatinine 0.66 Est GFR ( Amer) > 60 Est GFR (Non-Af Amer) > 60 Glucose 115 H Calcium 9.1 02/15/17 23:15 Sputum Gram Stain - Final Impressions: Chest X-Ray 02/14/17 17:40 IMPRESSION: RIGHT UPPER LOBE CONSOLIDATION COMPATIBLE WITH PNEUMONIA. RECOMMEND FOLLOWUP RADIOGRAPHS IN 4 TO 6 WEEKS TO ENSURE RESOLUTION. Assessment & Plan - Diagnosis (1) Right upper lobe pneumonia Qualifiers: Pneumonia type: due to unspecified organism Qualified Code(s): J18.1 - Lobar pneumonia, unspecified organism Is this a current diagnosis for this admission?: YesPlan: Will continue IV broad spectrum antibiotics, IV steroids and nebulizer treatment. Will send urine for legionella antigen (2) Sepsis Qualifiers: Sepsis type: sepsis due to unspecified organism Qualified Code(s): A41.9 - Sepsis, unspecified organism Is this a current diagnosis for this admission?: YesPlan: Improving with fluid and antibiotic therapy. Tachycardia and hypotension have improved. No fever in 24 hrs (3) Anemia Qualifiers: Anemia type: iron deficiency (4) Asthma Qualifiers: Asthma severity: mild intermittent Is this a current diagnosis for this admission?: YesPlan: Continue nebulizer treatments, will add IV steroids (5) Chest pain Qualifiers: Chest pain type: chest pain on breathing Qualified Code(s): R07.1 - Chest pain on breathing Is this a current diagnosis for this admission?: YesPlan: Continue IV steroids and taper - Time Time Spent with patient: 25-34 minutes Critical Time spent with patient: 15-24 minutes Medications reviewed and adjusted accordingly: Yes Anticipated discharge: Home
[2017-02-17 14:49] LABS: PATH REVIEW PATHOLOGIST REVIEWED
[2017-02-17 14:52] LABS: PATH REVIEW PATHOLOGIST REVIEWED
[2017-02-17] MEDS: KETOROLAC TROMETHAMINE INJ/PF 30 MG/1 ML SDV IV PRN (20:49)
[2017-02-18] MEDS: OXYCODONE-ACETAMINOPHEN 5-325 MG TABLET PO PRN ×4 (00:27→20:49)
[2017-02-18] MEDS: VANCOMYCIN HCL 1,500 MG in DEXTROSE 5%-WATER 250 ML IV SCH ×3 (01:17→17:19)
[2017-02-18] MEDS: IPRATROPIUM/ALBUTEROL 0.5-2.5 MG/3 ML AMPUL NEB SCH ×4 (01:45→21:23)
[2017-02-18] MEDS: HEPARIN SOD (PORCINE) 5,000 UNIT/ML 1 ML SYRINGE SUBCUT SCH ×3 (05:17→20:49)
[2017-02-18] MEDS: CEFEPIME 2 GM/D5W RTU 50 ML IV SCH ×2 (09:16→20:49)
[2017-02-18] MEDS: PREDNISONE 20 MG TABLET PO SCH (09:16)
[2017-02-18] MEDS: LEVOFLOXACIN 750 MG TABLET PO SCH (09:17)
[2017-02-18] MEDS: FAMOTIDINE 20 MG TABLET PO SCH ×2 (09:17→20:48)
[2017-02-18] MEDS: GUAIFENESIN 600 MG TABLET.SA PO SCH ×2 (09:17→20:49)
--- NOTE | 2017-02-18 11:20 | RADIOLOGY REPORT (SQ) ---
EXAM DESCRIPTION: CT CHEST WITHOUT COMPLETED DATE/TIME: 02/18/2017 11:09 am REASON FOR STUDY: Rt chest pain, eval for empyema COMPARISON: Two-view chest 02/14/2017, 09/19/2016 TECHNIQUE: CT scan performed of the chest without intravenous contrast. Images reviewed with lung, soft tissue and bone windows. Reconstructed coronal and sagittal MPR images reviewed. All images st ored on PACS. All CT scanners at this facility use dose modulation, iterative reconstruction, and/or weight based d osing when appropriate to reduce radiation dose to as low as reasonably achievable (ALARA). [facility]: Dose Right [facility]: CareDose [facility]: Dose Right [facility]: Teradose 4D [facility]: [employer] RADIATION DOSE: Up-to-date CT equipment and radiation dose reduction techniques were employed. CTDIv ol: 17.1 mGy. DLP: 587 mGy-cm. mGy. LIMITATIONS: No technical limitations. FINDINGS: LUNGS AND PLEURA: There is dense consolidation from pneumonia in the right lung apical pos terior segment. Patchy airspace disease is present in the superior segment right lower lobe. There is bandlike atele ctasis in the posterior right lower lobe. Trace bilateral pleural effusions are present layering dependently in the right and left chest. No pneumothorax. There is minimal airspace disease just above the left hemidiaphragm, atelectasis versus pneumonia. HILAR AND MEDIASTINAL STRUCTURES: Mild prevascular and pretracheal mediastinal adenopathy likely rela karla to the dense right upper lobe pneumonia. HEART AND VASCULAR STRUCTURES: No aneurysm. No pericardial effusion. UPPER ABDOMEN: No significant findings. Limited exam. THYROID AND OTHER SOFT TISSUES: No masses. No adenopathy. BONES: No significant finding. HARDWARE: None in the chest. OTHER: No other significant findings. IMPRESSION: Right upper lobe pneumonia Trace bilateral pleural effusions layer dependently in the chest. No evidence of loculation. TECHNICAL DOCUMENTATION: JOB ID: [id number] Quality ID # [id number]: Final reports with documentation of one or more dose reduction techniques (e.g., Au tomated exposure control, adjustment of the mA and/or kV according to patient size, use of iterative reconstruction technique) 2010 [employer]- All Rights Reserved
--- NOTE | 2017-02-18 12:12 | PDOC PROGRESS REPORT ---
Subjective Progress Note for:: 02/18/17 Subjective:: reason for visit: f/u pneumonia, acute hypoxic resp failure hosptial course: per other's notes - "BETTE COVARRUBIAS is a 31 year old female with a past medical history is been her usual state of health until approximately 12 hours prior to presentation. With rhinorrhea headache subjective fever and chills nonproductive cough shortness of breath pleuritic chest pain on the right side. In the emergency room she is found to have severe sepsis with hypotension, hypoxia, tachycardia, right upper lobe infiltrate and bandemia. She denies infectious contacts she denies prior pneumonia or other recent antibiotics she otherwise had felt well." she was admitted and started on broad spectrum abx with improvement in her condition including her leukocytosis. blood and sputum culxs and legionella Ag all negative. stat CT chest today did not show compelling evidence for loculations or empyema, just persistent Rt sided airspace disease. she doesn't have a hx of frequent infections as a child or immunocompromising condition that she is aware of. feels some better overall but still not back to baseline though she is on room air only at this point. continues to c/o Rt upper chest pain, sharp stabbing, intermittent, worse with deep breath and cough, better with rest and pain meds, radiates into her lower Rt chest and back but no other asct'd symptoms. ROS: all systems reviewed, see above, remaining systems negative. Physical Exam Vital Signs: Temp Pulse Resp BP Pulse Ox 97.8 F 60 16 125/81 95 02/18/17 07:16 02/18/17 08:00 02/18/17 08:00 02/18/17 07:16 02/18/17 08:00 Intake & Output 02/17/17 02/18/17 02/19/17 06:59 06:59 06:59 Intake Total 2376 3025 Output Total 900 Balance 1476 3025 Weight 92.6 kg 100.9 kg General appearance: PRESENT: obese, well-developed, well-nourished Head exam: PRESENT: atraumatic, normocephalic Eye exam: PRESENT: EOMI. ABSENT: conjunctival injection, scleral icterus Mouth exam: PRESENT: moist, neck supple Neck exam: PRESENT: full ROM. ABSENT: lymphadenopathy, tracheal deviation Respiratory exam: PRESENT: accessory muscle use, crackles - Rt base, decreased breath sounds - throughout the RT. ABSENT: rhonchi, wheezes Cardiovascular exam: PRESENT: RRR. ABSENT: systolic murmur Pulses: PRESENT: normal radial pulses, normal dorsalis pedis pul GI/Abdominal exam: PRESENT: normal bowel sounds, soft. ABSENT: tenderness Extremities exam: PRESENT: pedal edema - trace. ABSENT: calf tenderness Musculoskeletal exam: PRESENT: ambulatory, full ROM Neurological exam: PRESENT: alert, awake, oriented to person, oriented to place , oriented to time Psychiatric exam: PRESENT: appropriate affect, normal mood Skin exam: PRESENT: warm - moist Results Laboratory Results: 02/17/17 05:55 02/17/17 18:00 02/16/17 02/17/17 04:14 18:00 WBC 28.8 H RBC 3.74 Hgb 10.2 L Hct 32.0 L MCV 85 MCH 27.3 MCHC 31.9 L RDW 15.3 H Plt Count 259 Creatinine 0.60 Est GFR ( Amer) > 60 Est GFR (Non-Af Amer) > 60 02/16/17 00:34 Clean Catch Midstream Legionella Urinary Antigen - Final 02/15/17 23:15 Sputum Gram Stain - Final Impressions: Chest X-Ray 02/14/17 17:40 IMPRESSION: RIGHT UPPER LOBE CONSOLIDATION COMPATIBLE WITH PNEUMONIA. RECOMMEND FOLLOWUP RADIOGRAPHS IN 4 TO 6 WEEKS TO ENSURE RESOLUTION. Chest CT 02/18/17 00:00 IMPRESSION: Right upper lobe pneumonia Trace bilateral pleural effusions layer dependently in the chest. No evidence of loculation. Status: Image reviewed by me - agree with rads Assessment & Plan - Diagnosis (1) Right upper lobe pneumonia Qualifiers: Pneumonia type: due to unspecified organism Qualified Code(s): J18.1 - Lobar pneumonia, unspecified organism Is this a current diagnosis for this admission?: YesPlan: unclear pathogen but improving slowly, continue current regimen for now. no ct evidence for abscess or empyema. (2) Pleuritic chest pain Is this a current diagnosis for this admission?: YesPlan: 2/2 above, continue steroids and taper off soon (3) Obesity (BMI 30.0-34.9) Is this a current diagnosis for this admission?: YesPlan: maybe contributing to some of her chest pain (4) Sepsis Qualifiers: Sepsis type: sepsis due to unspecified organism Qualified Code(s): A41.9 - Sepsis, unspecified organism Is this a current diagnosis for this admission?: YesPlan: improved - Time Time Spent with patient: 25-34 minutes Medications reviewed and adjusted accordingly: Yes Anticipated discharge: Home Within: within 72 hours
[2017-02-19] MEDS: VANCOMYCIN HCL 1,500 MG in DEXTROSE 5%-WATER 250 ML IV SCH (01:53)
[2017-02-19] MEDS: OXYCODONE-ACETAMINOPHEN 5-325 MG TABLET PO PRN ×3 (01:53→14:26)
[2017-02-19] MEDS: IPRATROPIUM/ALBUTEROL 0.5-2.5 MG/3 ML AMPUL NEB SCH ×2 (02:16→09:05)
[2017-02-19] MEDS: HEPARIN SOD (PORCINE) 5,000 UNIT/ML 1 ML SYRINGE SUBCUT SCH (05:25)
[2017-02-19 07:40] LABS: HEMATOCRIT 31.8 % (36.0-47.0); HEMOGLOBIN 10.3 g/dL (12.0-15.5); HGB HCT DIFFERENCE -0.9; MEAN CORPUSCULAR HEMOGLOBIN 27.7 pg (27.0-33.4); MEAN CORPUSCULAR HGB CONC 32.3 g/dL (32.0-36.0); MEAN CORPUSCULAR VOLUME 86 fl (80-97); RED BLOOD COUNT 3.72 10^6/uL (3.72-5.28); RED CELL DISTRIBUTION WIDTH 15.2 % (11.5-14.0); WHITE BLOOD COUNT 11.9 10^3/uL (4.0-10.5)
[2017-02-19 08:04] LABS: BAND NEUTROPHILS % (MANUAL) 2 % (3-5); BASOPHILS % (MANUAL) 0 % (0-2); EOSINOPHILS % (MANUAL) 3 % (0-6); LYMPHOCYTES % (MANUAL) 29 % (13-45); TOTAL CELLS COUNTED 100; TOXIC VACUOLATION PRESENT
[2017-02-19 08:08] LABS: ANISOCYTOSIS SLIGHT; TOXIC GRANULATION 1+
[2017-02-19] MEDS: FAMOTIDINE 20 MG TABLET PO SCH (09:12)
[2017-02-19] MEDS: PREDNISONE 20 MG TABLET PO SCH (09:12)
[2017-02-19] MEDS: GUAIFENESIN 600 MG TABLET.SA PO SCH (09:12)
[2017-02-19] MEDS: LEVOFLOXACIN 750 MG TABLET PO SCH (09:12)
[2017-02-19] MEDS: CEFEPIME 2 GM/D5W RTU 50 ML IV SCH (09:13)
[2017-02-19] MEDS ORDERED: ALBUTEROL SULFATE HFA (90 MCG/PUFF) 200 PUFF/8.5 GM MDI IH PRN (09:19)
--- NOTE | 2017-02-19 12:22 | PDOC DISCHARGE SUMMARY ---
General - Admit/Disc Date/PCP Admission Date/Primary Care Provider: 02/14/17 20:29 Discharge Date: 02/19/17 - Discharge Diagnosis (1) Right upper lobe pneumonia Is this a current diagnosis for this admission?: YesSummary: atypical, finished 5d of triple abx and cultures all negative or no growth so no pathogen ever identified and legionella Ag negative. her leukocytosis is improved and overall she has weaned off the O2 with only minimal bronchospasm and is stable for d/c home at this time. she should continue levaquin for another 10d due to the dense pneumonia seen on CT chest. no evidence for empyema. she needs to fu with PCP communications professional in one week to make sure she is clearing this pneumonia. return to the ED for worsening symptoms. (2) Pleuritic chest pain Is this a current diagnosis for this admission?: YesSummary: improved, continue short course of steroids (3) Obesity (BMI 30.0-34.9) Is this a current diagnosis for this admission?: Yes (4) Sepsis Is this a current diagnosis for this admission?: YesSummary: resolving - Additional Information Resuscitation Status: Full Code Discharge Diet: As Tolerated Discharge Activity: Activity As Tolerated Home Medications: Cetirizine HCl [Zyrtec 10 mg Tablet] 10 mg PO DAILYP PRN 02/14/17 Acetaminophen [Tylenol 325 mg Tablet] 650 mg PO Q4HP PRN tablet 02/19/17 Albuterol Sulfate [Proair HFA Inhalation Aerosol 8.5 gm MDI] 2 puff IH QIDP PRN #1 hfa.aer.ad 02/19/17 Guaifenesin [Mucinex Sr 600 mg Tablet.sa] 1,200 mg PO Q12 #20 tablet.sa Ipratropium/Albuterol Sulfate [Combivent Respimat 4 gm Mdi] 1 puff IH Q8 #1 aer.w.adap 02/19/17 Levofloxacin [Levaquin 750 mg Tablet] 750 mg PO DAILY #10 tablet 02/19/17 Prednisone [Deltasone 20 mg Tablet] 20 mg PO DAILY #7 tablet 02/19/17 History of Present Illness Patient complains of: cough and fever History of Present Illness: BETTE COVARRUBIAS is a 31 year old female with a past medical history is been her usual state of health until approximately 12 hours prior to presentation. With rhinorrhea headache subjective fever and chills nonproductive cough shortness of breath pleuritic chest pain on the right side. Hospital Course Hospital Course: In the emergency room she is found to have severe sepsis with hypotension, hypoxia, tachycardia, right upper lobe infiltrate and bandemia. She denies infectious contacts she denies prior pneumonia or other recent antibiotics she otherwise had felt well." she was admitted and started on broad spectrum abx with improvement in her condition including her leukocytosis. blood and sputum culxs and legionella Ag all negative. stat CT chest today did not show compelling evidence for loculations or empyema, just persistent Rt sided airspace disease. she doesn't have a hx of frequent infections as a child or immunocompromising condition that she is aware of. feels some better overall but still not back to baseline though she is on room air only at this point. continues to c/o Rt upper chest pain, sharp stabbing, intermittent, worse with deep breath and cough, better with rest and pain meds, radiates into her lower Rt chest and back but no other asct'd symptoms. gradually her symptoms improved enough that she is stable for d/c home. her ct chest shows no empyema or serious fluid collection but a dense RUL pneumonia persists. her leukocytosis improved. Physical Exam Vital Signs: Temp Pulse Resp BP Pulse Ox 97.7 F 66 18 117/67 100 02/19/17 10:55 02/19/17 10:55 02/19/17 10:55 02/19/17 10:55 02/19/17 10:55 Intake & Output 02/18/17 02/19/17 02/20/17 06:59 06:59 06:59 Intake Total 3025 2510 Balance 3025 2510 Weight 100.9 kg 102.6 kg General appearance: PRESENT: no acute distress, well-developed, well-nourished Head exam: PRESENT: atraumatic, normocephalic Eye exam: PRESENT: EOMI Respiratory exam: PRESENT: unlabored, wheezes - mild. ABSENT: accessory muscle use, retraction GI/Abdominal exam: PRESENT: normal bowel sounds, soft Neurological exam: PRESENT: alert, awake Skin exam: PRESENT: warm Results Laboratory Results: 02/19/17 07:30 02/17/17 18:00 02/19/17 07:30 WBC 11.9 H RBC 3.72 Hgb 10.3 L Hct 31.8 L MCV 86 MCH 27.7 MCHC 32.3 RDW 15.2 H Plt Count 393 Seg Neutrophils % Not Reportable Lymphocytes % Not Reportable Monocytes % Not Reportable Eosinophils % Not Reportable Basophils % Not Reportable Absolute Neutrophils Not Reportable Absolute Lymphocytes Not Reportable Absolute Monocytes Not Reportable Absolute Eosinophils Not Reportable Absolute Basophils Not Reportable 02/16/17 00:34 Clean Catch Midstream Legionella Urinary Antigen - Final Impressions: Chest X-Ray 02/14/17 17:40 IMPRESSION: RIGHT UPPER LOBE CONSOLIDATION COMPATIBLE WITH PNEUMONIA. RECOMMEND FOLLOWUP RADIOGRAPHS IN 4 TO 6 WEEKS TO ENSURE RESOLUTION. Chest CT 02/18/17 00:00 IMPRESSION: Right upper lobe pneumonia Trace bilateral pleural effusions layer dependently in the chest. No evidence of loculation. Qualifiers PATEINT BEING DISCHARGED WITH ANY OF THE FOLLOWING DIAGNOSIS?: No VTE patient discharged on overlapping Therapy?: Yes Reason(s) for not prescribing Overlap Therapy:: Not indicated Plan Discharge Plan: d/c home with another 10d abx; f/u with PCP in one week; return to ED for worsening symptoms. she expresses no concernst to me about going home at this time Time Spent: Greater than 30 Minutes
[2017-02-19] MEDS ORDERED: IPRATROPIUM/ALBUTEROL 120 PUFF/4 GM MDI IH SCH (14:00)
[2017-02-19 16:53] LABS: PATH REVIEW PATHOLOGIST REVIEWED
[2017-02-19 17:28] VITALS: BP 119/58
== END 2017-02-19 16:30 | disposition home or self-care (01) | DRG 871 ==
LOC: ER 16:40 → EH 20:29 → UNDOADMIN 21:04 → EH 21:04 → 4S 22:15
PROVIDERS: ADMIT Internal Medicine; ATTEND Internal Medicine
PROC: 3E0F73Z Introduction of Anti-inflammatory into Respiratory Tract, Via Natural or Artificial Opening (ICD-10-PCS; principal; 2017-02-15)
DX: A41.9 Sepsis, unspecified organism (principal); J18.1 Lobar pneumonia, unspecified organism; J96.01 Acute respiratory failure with hypoxia; R65.20 Severe sepsis without septic shock; J45.20 Mild intermittent asthma, uncomplicated; D50.9 Iron deficiency anemia, unspecified; E66.9 Obesity, unspecified; Z68.34 Body mass index [BMI] 34.0-34.9, adult; Z79.899 Other long term (current) drug therapy; Z87.891 Personal history of nicotine dependence; Z83.6 Family history of other diseases of the respiratory system
CPT/HCPCS: 36415; 71020; 71250; 80048; 80053; 80202; 81001; 82565; 82803; 82962; 83036; 83605; 84702; 85025; 87040; 87070; 87205; 94799; 96361; 96374; 96375; 99291; J0692; J0696; J1200; J1644; J1815; J1885; J1956; J2765; J2930; J3370; J3490; J7030; J7060; J7512; J7620; S0119

== ENCOUNTER 2017-06-26 22:17 | Emergency (ER) | payer SELFPAY ==
[2017-06-26] MEDS ORDERED: IPRATROPIUM/ALBUTEROL 0.5-2.5 MG/3 ML AMPUL NEB ONE (22:40)
--- NOTE | 2017-06-26 22:40 | ER Document Report ---
ED ENT - General Chief Complaint: Sinus Congestion Stated Complaint: SINUS PRESSURE Time Seen by Provider: 06/26/17 22:30 Mode of Arrival: Ambulatory Information source: Patient Notes: 32-year-old female presents to ED today with acute concerns regarding a possible sinus infection. Reported symptoms worsening over the past 4 days, including unilateral left-sided throbbing headache in the ocular area with sensitivity to sound and light, nasal congestion, sinus pressure, runny nose with thick green discharge, intermittently productive cough, chills (has not actually checked temperature), fatigue, and left sided ear fullness. Does endorse a history of previous sinus infections with concurrent migraine headache type symptoms. Additionally endorses a history of asthma and allergies but has not been using Netti Pot or Combivent inhaler as recommended/ prescribed. Has been using albuterol inhaler with current symptom flare, but reports counter has been on "0" for the past few days and so she is unsure how much medication she is actually getting. Additional home remedies attempted include hot and cold packs with little to no relief. Denies additional associated symptoms. TRAVEL OUTSIDE OF THE [place] IN LAST 30 DAYS: No - Related Data Allergies/Adverse Reactions: No Known Allergies Allergy (Verified 01/01/17 11:42) Past Medical History - General Information source: Patient - Social History Smoking Status: Unknown if Ever Smoked Family History: Reviewed & Not Pertinent Pulmonary Medical History: Reports: Hx Asthma Renal/ Medical History: Denies: Hx Peritoneal Dialysis Psychiatric Medical History: Denies: Hx Depression Past Surgical History: Reports: Hx Tonsillectomy - tubes in ers. Denies: Hx Tubal Ligation - Immunizations Hx Diphtheria, Pertussis, Tetanus Vaccination: Yes Review of Systems - Review of Systems Constitutional: See HPI EENT: See HPI Cardiovascular: No symptoms reported Respiratory: See HPI Gastrointestinal: No symptoms reported Genitourinary: No symptoms reported Female Genitourinary: No symptoms reported Musculoskeletal: No symptoms reported Skin: No symptoms reported Hematologic/Lymphatic: No symptoms reported Neurological/Psychological: No symptoms reported Physical Exam - Vital signs Vitals: Temp Pulse Resp BP Pulse Ox 98.7 F 91 16 133/84 H 99 06/26/17 22:21 06/26/17 22:21 06/26/17 22:21 06/26/17 22:21 06/26/17 22:21 - Notes Notes: PHYSICAL EXAMINATION: GENERAL: Mildly uncomfortable appearing, but in no acute distress. Alert, oriented, and cooperative with exam. HEAD/FACE: Atraumatic, normocephalic, tenderness noted to left sided frontal and maxillary sinuses EYES: Pupils equal round and reactive to light, extraocular movements intact, sclera anicteric, conjunctiva are normal. ENT: Ear canals without erythema or foreign body, TMs pearly gonzales with good bony landmarks, nares patent, oropharynx clear without exudates, moist mucous membranes NECK: Normal range of motion, with left sided anterior cervical lymphadenopathy and tenderness noted LUNGS: Expiratory wheezes noted prior to nebulization treatment. Reevaluation upon completion of treatment with lungs CTAB and equal, no wheezes rales or rhonchi. HEART: Regular rate and rhythm without murmurs EXTREMITIES: Normal range of motion, no edema, no cyanosis PSYCH: Normal mood, normal affect. SKIN: Warm, Dry, normal turgor Course - Re-evaluation Re-evalutation: Patient reports great improvement in respiratory symptoms following DuoNeb nebulization. Respiratory exam re-accomplished - lungs CTAB and equal, no wheezes rales or rhonchi noted. Patient hemodynamically stable. History and exam consistent with acute sinusitis. Will treat with lower cost antibiotic per patient's request. Additionally will provide patient with albuterol inhaler to be used as needed for symptom management and strict follow up instructions and strict return precautions. - Vital Signs Vital signs: Temp Pulse Resp BP Pulse Ox 98.2 F 83 16 135/74 H 97 06/26/17 23:36 06/26/17 23:36 06/26/17 23:36 06/26/17 23:36 06/26/17 23:36 Discharge - Discharge Clinical Impression: Cough Sinusitis Qualifiers: Sinusitis location: unspecified location Chronicity: acute Recurrence: not specified as recurrent Qualified Code(s): J01.90 - Acute sinusitis, unspecified Condition: Stable Disposition: HOME, SELF-CARE Additional Instructions: Sinusitis You have sinusitis, an infection of the sinus cavities of the face. The sinuses are air-filled chambers which open into the inside of the nose. Bacteria and pus fill a sinus, causing pain, drainage, and fever. Sinusitis is treated with antibiotics. Healing requires seven to 10 days. Avoid chemical fumes, pollens, dusts, and smoke (especially cigarette smoke ). Keep the air humidified in your bedroom and work area and take plenty of liquids by mouth. This condition can be serious if the infection spreads. If your symptoms worsen, or if you develop severe headache, high fever, stiff neck, or a rash, you must call the doctor or return for re-evaluation. ANTIBIOTIC THERAPY: You have been given an antibiotic prescription. It's important that you take all the medication, unless instructed otherwise by your physician. Failure to complete the entire course can result in relapse of your condition. Common side effects of antibiotics include nausea, intestinal cramping, or diarrhea. Women may develop vaginal yeast infections, and babies can get yeast (thrush) in the mouth following the use of antibiotics. Contact your physician if you develop significant side effects from this medication. Allergy to this antibiotic can result in hives, wheezing, faintness, or itching. If symptoms of allergy occur, stop the medication and call your doctor. INHALED BRONCHODILATORS: You have received treatment(s) of and/or prescription for an inhaled bronchodilator -- a medication which stimulates the airways in the lung to dilate. This improves the flow of air in asthma, bronchitis, and emphysema. These medicines have some similarity to adrenaline, and can cause similar side effects: shakiness, racing heart, and a sense of nervousness. These side effects decrease with time. Contact your doctor if these side effects are severe. Do not over-use the medicine. Too-frequent use of the inhaler may make it ineffective. Call your doctor if the inhaler is not controlling your symptoms at the prescribed doses. SMOKING: If you smoke, you should stop smoking. The tar and chemicals in cigarette smoke are harmful. Smoking has been shown to cause: emphysema chronic bronchitis lung cancer mouth and throat cancer stomach and pancreas cancer premature aging defects In addition, smoking increases ear and lung infections in children of smokers. Return immediately for any new or worsening symptoms. Follow up with primary care provider, call tomorrow to make follow up appointment. Prescriptions: Albuterol Sulfate [Proair HFA Inhalation Aerosol 8.5 gm MDI] 2 puff IH Q4H PRN # 1 mdi PRN Reason: Amoxicillin 875 mg PO BID 10 Days #20 tablet Referrals: [facility] [NO LOCAL MD] - Follow up as needed
[2017-06-26] MEDS ORDERED: ALBUTEROL SULFATE HFA (90 MCG/PUFF) 8 GM MDI (1 MDI/ER DISP) IH ONE (23:18)
[2017-06-26 23:40] VITALS: BP 135/74
== END 2017-06-26 23:42 | disposition home or self-care (01) ==
LOC: ER 22:17
DX: J01.90 Acute sinusitis, unspecified (principal); R51 Headache; H53.149 Visual discomfort, unspecified; R09.81 Nasal congestion; R05 Cough; R68.83 Chills (without fever); R53.81 Other malaise; J45.909 Unspecified asthma, uncomplicated; R59.0 Localized enlarged lymph nodes
CPT/HCPCS: 94640; 99283; J3490; J7620

== ENCOUNTER 2017-06-28 11:47 | Emergency (ER) | payer SELFPAY ==
[2017-06-28] MEDS ORDERED: LIDOCAINE 1% INJ-PF (10 MG/ML) 30 ML SDV INFIL ONE (12:23)
[2017-06-28] MEDS ORDERED: CEFTRIAXONE INJ 1000 MG VIAL IM ONE (12:23)
[2017-06-28] MEDS ORDERED: DEXAMETHASONE SOD PHOS INJ 10 MG/1 ML VIAL IM ONE (12:23)
--- NOTE | 2017-06-28 13:31 | ER Document Report ---
ED Respiratory Problem - General Chief Complaint: Sinus Congestion Stated Complaint: SINUS PAIN,HEADACHE Time Seen by Provider: 06/28/17 12:09 Mode of Arrival: Ambulatory Information source: Patient Notes: Patient is a male she returns to ER from a visit she had here 2 days ago. Patient was diagnosed with a sinus headache was given amoxicillin 875 twice daily and sent home. Patient states that she knows has not been enough time for an antibiotic to work but the headache has not gotten any better she is having a difficult time sleeping. Patient denies any history of headaches in the past states this 1 is on the left side near her frontal sinus area. This entire process is been going on for a total of 5 days but 2 days ago is when the headache started. Headache has been intermittent but is been intensity has varied. Patient denies photophobia and/or nausea or vomiting. Patient does have a history of asthma. Her last was repeated on 20 June. She is now on control she also works as a courtesy driver. TRAVEL OUTSIDE OF THE [place] IN LAST 30 DAYS: No - HPI Patient complains to provider of: Cough Onset: Other - 3-4 days ago Duration: Worse/persistent Initiating Event: URI Quality of pain: Sharp, Stabbing Severity: Moderate Pain Level: 3 Context: Smoker Cough: Productive Sputum amount: Moderate Sputum color: Yellow Sputum consistency: Thick At home treatment: Bronchodilators EMS treatments: Bronchodilators Associated symptoms: Chills, Congestion, Cough, Headache, PND, Wheezing Similar symptoms previously: Yes Recently seen / treated by doctor: Yes - Related Data Allergies/Adverse Reactions: No Known Allergies Allergy (Verified 06/28/17 11:52) Past Medical History - General Information source: Patient - Social History Smoking Status: Current Every Day Smoker Cigarette use (# per day): Yes - Half-pack a day Chew tobacco use (# tins/day): No Smoking Education Provided: Yes Frequency of alcohol use: None Drug Abuse: None Lives with: Family Family History: Reviewed & Not Pertinent Patient has suicidal ideation: No Patient has homicidal ideation: No Pulmonary Medical History: Reports: Hx Asthma Renal/ Medical History: Denies: Hx Peritoneal Dialysis Psychiatric Medical History: Denies: Hx Depression Past Surgical History: Reports: Hx Tonsillectomy - tubes in ers. Denies: Hx Tubal Ligation - Immunizations Hx Diphtheria, Pertussis, Tetanus Vaccination: Yes Review of Systems - Review of Systems Constitutional: Weakness EENT: Nose congestion, Sinus pressure, Sinus discharge Cardiovascular: No symptoms reported Respiratory: Cough, Sputum, Wheezing Gastrointestinal: No symptoms reported Genitourinary: No symptoms reported Female Genitourinary: No symptoms reported Musculoskeletal: No symptoms reported Skin: No symptoms reported Hematologic/Lymphatic: No symptoms reported Neurological/Psychological: No symptoms reported -: Yes All other systems reviewed and negative Physical Exam - Vital signs Vitals: Temp Pulse Resp BP Pulse Ox 98.3 F 75 18 144/81 H 96 06/28/17 11:53 06/28/17 11:53 06/28/17 11:53 06/28/17 11:53 06/28/17 11:53 - General General appearance: Other - Uncomfortable appearing In distress: Mild - HEENT Head: Normocephalic, Atraumatic Eyes: Normal Conjunctiva: Normal Ears: Normal External canal: Normal. No: Blood in canal, Cerumen impaction, Erythema, Foreign body, Swollen, Other Tympanic membrane: Bulging, Other - Air-fluid levels noted Sinus: Frontal, Tenderness. No: Normal, Abnormal, Mastoid, Maxillary, Redness, Swelling, Other Nasal: Purulent discharge, Other - Examination head and upper airway showed nasal mucosa to be moderately erythematous and edematous with some rhinorrhea yellowish to green in color. Patient displays bilateral nasal congestion. She also displays left frontal sinus tenderness to palpation percussion. Bilateral TMs are bulging with air-fluid levels noted. External canals are clear cerumen at this time. Posterior pharynx shows moderate amount of postnasal drip in the back of the throat. It is also yellowish-green in color. Is exceptionally thick. Patient has no encroachment upon the uvula there is erythema surrounding it but no exudate. Airway is patent.. No: Normal, Bloody discharge , Memo deformity, Ecchymosis, Epistaxis, Septal hematoma, Swelling, Clear rhinorrhea - Respiratory Respiratory status: No respiratory distress Chest status: Nontender Breath sounds: Wheezing, Other - Auscultation patient's bilateral lung beasley show that she has some mild expiratory wheeze noted, but no rhonchi or rales heard. - Cardiovascular Rhythm: Regular Heart sounds: Normal auscultation Murmur: No - Neurological Neuro grossly intact: Yes Cognition: Normal Orientation: AAOx4 Roge Coma Scale Eye Opening: Spontaneous [place] Coma Scale Verbal: Oriented Roge Coma Scale Motor: Obeys Commands Roge Coma Scale Total: 15 Speech: Normal - Skin Skin Temperature: Warm Skin Moisture: Dry Skin Color: Normal, Marston Course - Vital Signs Vital signs: Temp Pulse Resp BP Pulse Ox 97.7 F 75 16 138/76 H 96 06/28/17 13:48 06/28/17 13:48 06/28/17 13:48 06/28/17 13:48 06/28/17 13:48 - Transfer of Care Notes: 06/28/17 13:28 I have had a long discussion with patient and on my physical exam still believe this to be a sinus problem. Patient has had no visual changes she has had no nausea or vomiting and no severe pain. Patient's pain is just on relenting and constantly there. She has reproducible tenderness over the left frontal sinus where she is having the discomfort. I am going to attempt her on a steroid taper with antibiotics and a little Tylenol 3 for her cough and have informed her that if this does not get better in the next 24-48 hours or the headache changes or intensifies or she has visual problems coming on to return to ER once for a CT of the head. Currently patient does not want a CT but will return if this medication does not work. Discharge - Discharge Clinical Impression: Upper respiratory infection Qualifiers: URI type: unspecified URI Qualified Code(s): J06.9 - Acute upper respiratory infection, unspecified Sinusitis Qualifiers: Sinusitis location: frontal Chronicity: acute Recurrence: not specified as recurrent Qualified Code(s): J01.10 - Acute frontal sinusitis, unspecified Clinical Impression: (Ruled Out): Sinusitis chronic, frontal Disposition: HOME, SELF-CARE Instructions: Sinusitis ([facility]), Upper Respiratory Illness ([facility]) Additional Instructions: Home and rest. Medication as prescribed. Continue and finish the antibiotic written you for 2 days ago. Get some nasal saline keep the nose moist and secretions thin. You may even try for sleep at night get a bottle of Afrin nasal spray place a in your bathroom and at night before bed spray 2 sprays in each nostril. This will help dry up the secretions and give you the opportunity to breathe while you sleep. Do not use this medication at any other time. It works so well your attempted to carry it with you but the more you use the medication the more you have to use the medication and the less effective it is. If he only use it before bed at night to get sleep no more than a maximum of 3 straight days. As we have stated return to ER if the headaches continue or change in anyway and we will run a CT of your head. Prescriptions: Acetaminophen with Codeine [Tylenol with Codeine #3 Tablet] 1 each PO Q4 PRN # 15 tablet PRN Reason: Cough Methylprednisolone [Medrol Dosepack (4 mg/Tab) 21 Tab/Dosepak] 4 mg PO ASDIR PRN #21 tab.ds.pk PRN Reason: Pseudoephedrine HCl [Sudafed 12-Hour] 120 mg PO BID #20 tablet.er Forms: Return to Work
[2017-06-28 13:50] VITALS: BP 138/76
== END 2017-06-28 13:45 | disposition home or self-care (01) ==
LOC: ER 11:47
DX: J06.9 Acute upper respiratory infection, unspecified (principal); J01.10 Acute frontal sinusitis, unspecified; R09.81 Nasal congestion; R51 Headache; R05 Cough; F17.210 Nicotine dependence, cigarettes, uncomplicated
CPT/HCPCS: 99283; 96372; J3490; J0696; J1100

== ENCOUNTER 2017-07-18 16:56 | Emergency (ER) | payer SELFPAY ==
--- NOTE | 2017-07-18 17:42 | ER Document Report ---
HPI - HPI Patient complains to provider of: Sinus pain with postnasal drip Onset: Other - Friday Onset/Duration: Gradual Pain Level: 4 Context: 32-year-old female treated with amoxicillin and steroids for sinusitis and wheezing on June 26 and June 28 was well for only a few days and symptoms recurred on Friday. She continues to smoke. No fever or chills. No facial swelling. No chest pain or shortness of breath. She is blowing yellow and green out of her sinuses. She does have a long history of allergies and a chronic allergic rhinitis. Associated Symptoms: None Exacerbated by: Denies Relieved by: Denies Similar symptoms previously: Yes Recently seen / treated by doctor: No - ROS ROS below otherwise negative: Yes Systems Reviewed and Negative: Yes All other systems reviewed and negative - REPRODUCTIVE Reproductive: DENIES: : Past Medical History - General Information source: Patient - Social History Smoking Status: Current Every Day Smoker Frequency of alcohol use: None Drug Abuse: None Lives with: Family Family History: Reviewed & Not Pertinent Pulmonary Medical History: Reports: Hx Asthma EENT Medical History: Reports: Other - Allergic rhinitis chronic allergic sinusitis Renal/ Medical History: Denies: Hx Peritoneal Dialysis Psychiatric Medical History: Denies: Hx Depression Past Surgical History: Reports: Hx Tonsillectomy - tubes in ers. Denies: Hx Tubal Ligation - Immunizations Hx Diphtheria, Pertussis, Tetanus Vaccination: Yes Vertical Provider Document - CONSTITUTIONAL Agree With Documented VS: Yes Exam Limitations: No Limitations - INFECTION CONTROL TRAVEL OUTSIDE OF THE [place] IN LAST 30 DAYS: No - HEENT HEENT: Normocephalic. negative: Conjuctival Injection, Pharyngeal Erythema, Tympanic Membrane Red, Tympanic Membrane Bulging Notes: Boggy nares, non-tender sinus - NECK Neck: Supple. negative: Lymphadenopathy-Left, Lymphadenopathy-Right - RESPIRATORY Respiratory: No Respiratory Distress, Wheezing - Expiratory on the right O2 Sat by Pulse Oximetry: 97 - CARDIOVASCULAR Cardiovascular: Regular Rate, Regular Rhythm - MUSCULOSKELETAL/EXTREMETIES Musculoskeletal/Extremeties: BUBBA CANALES - NEURO Level of Consciousness: Awake, Alert, Appropriate - DERM Integumentary: Warm, Dry, No Rash Course - Re-evaluation Re-evalutation: 07/18/17 18:54 extensive chronic sinus with acute right sinusitis. Patient cannot afford Augmentin so we will try the Septra which she will be able to afford - Vital Signs Vital signs: Temp Pulse Resp BP Pulse Ox 97.7 F 81 14 125/76 97 07/18/17 17:14 07/18/17 17:14 07/18/17 17:14 07/18/17 17:14 07/18/17 17:14 Discharge - Discharge Clinical Impression: Wheezing Chronic sinusitis Qualifiers: Sinusitis location: pansinusitis Qualified Code(s): J32.4 - Chronic pansinusitis Condition: Good Disposition: HOME, SELF-CARE Instructions: ENT, Inhaled Bronchodilators ([facility]), Sinusitis ([facility]), Stop Smoking ([facility]), Steroid Medication, Trimethoprim-Sulfa ([facility]) Additional Instructions: call and schedule appointment with ENT doctor augmentin for 3 weeks steroids for 1 week saline nasal spray 4 times per day continue the albuterol MDI for the cough and wheeze, 2 puffs every 3 hours heat to sinus to er if swelling, fever Please complete the patient satisfaction survey if you get one, and return it.. If you do not receive a survey, then you can go to the [facility] website, [email or web address] and place your comments about your very good care. Thank you very much. It was a pleasure being your medical provider today. Prescriptions: Prednisone [Deltasone 10 mg Tablet] 10 mg PO ASDIR PRN #21 tablet PRN Reason: Sulfamethoxazole/Trimethoprim [Sulfamethoxazole-Tmp Ds Tablet] 1 each PO BID # 42 tablet
[2017-07-18] MEDS ORDERED: IPRATROPIUM/ALBUTEROL 0.5-2.5 MG/3 ML AMPUL NEB ONE (18:07)
[2017-07-18] MEDS ORDERED: AMOXICILLIN TR/POT CLAVULANATE 500-125 MG TAB PO ONE (18:40)
[2017-07-18] MEDS ORDERED: AMOXICILLIN TRIHYDRATE 500 MG CAPSULE PO ONE (18:40)
--- NOTE | 2017-07-18 18:46 | RADIOLOGY REPORT (SQ) ---
EXAM DESCRIPTION: CT FACIAL AREA WITHOUT COMPLETED DATE/TIME: 07/18/2017 6:37 pm REASON FOR STUDY: chronic sinus for a month COMPARISON: None. TECHNIQUE: Noncontrast scanning through the paranasal sinuses using bone algorithm. Reconstructed MPR images reviewed. All images stored on PACS. All CT scanners at this facility use dose modulation, iterative reconstruction, and/or weight based d osing when appropriate to reduce radiation dose to as low as reasonably achievable (ALARA). [facility]: Dose Right [facility]: CareDose [facility]: Dose Right [facility]: Teradose 4D [facility]: [employer] RADIATION DOSE: mGy. LIMITATIONS: None. FINDINGS: SINUSES: Extensive chronic sinus disease involving the ethmoid sphenoid frontal and maxill gaby sinuses left greater than right. Superimposed acute sinus disease right maxillary. NASAL CAVITY: Midline nasal septum. BONES: Normal mineralization. No fracture or bone lesion. ORBITS: Intact, symmetric globes. No retroorbital mass. TMJS: Normal. MASTOIDS: Clear. IACs symmetric, grossly normal. INFERIOR BRAIN: Limited view. No acute findings. OTHER: No other significant finding. IMPRESSION: Extensive acute and chronic sinus disease. TECHNICAL DOCUMENTATION: JOB ID: [id number] Quality ID # [id number]: Final reports with documentation of one or more dose reduction techniques (e.g., Au tomated exposure control, adjustment of the mA and/or kV according to patient size, use of iterative reconstruction technique) 2010 [employer]- All Rights Reserved
[2017-07-18] MEDS ORDERED: IBUPROFEN 800 MG TABLET PO ONE (18:53)
[2017-07-18] MEDS ORDERED: ONDANSETRON 4 MG TAB.RAPDIS PO ONE (18:53)
[2017-07-18] MEDS ORDERED: SULFAMETHOXAZOLE/TRIMETHOPRIM 800-160 MG TABLET PO ONE (18:58)
[2017-07-18] MEDS ORDERED: PREDNISONE 20 MG TABLET PO ONE (19:00)
[2017-07-18] MEDS ORDERED: ALBUTEROL SULFATE HFA (90 MCG/PUFF) 8 GM MDI (1 MDI/ER DISP) IH PRN (19:16)
[2017-07-18 19:22] VITALS: BP 148/72
== END 2017-07-18 19:21 | disposition home or self-care (01) ==
LOC: ER 16:56
DX: J32.1 Chronic frontal sinusitis (principal); R06.2 Wheezing; R51 Headache; R09.82 Postnasal drip; F17.200 Nicotine dependence, unspecified, uncomplicated
CPT/HCPCS: 94640; 99285; 70486; S0119; J7512; J3490; J7620

== ENCOUNTER 2017-09-07 16:06 | Emergency (ER) | payer SELFPAY ==
[2017-09-07] MEDS ORDERED: PREDNISONE 20 MG TABLET PO ONE (16:36)
--- NOTE | 2017-09-07 16:42 | ER Document Report ---
ED Respiratory Problem - General Chief Complaint: Asthma Exacerbation Stated Complaint: COUGH, DIFFICULTY BREATHING Time Seen by Provider: 09/07/17 16:19 Mode of Arrival: Ambulatory Information source: Patient Notes: 32-year-old female presents to ED for difficulty breathing when she woke up this afternoon. She states she just woke up at 230 and she was wheezing at that time. She states after she got dressed and got up and came in here with the shortness of breath is a little improved but she is still feeling tight. She states she ran out of her albuterol inhaler about 2 weeks ago. She states she has a longtime history of asthma. She states she quit smoking about 2 weeks ago she was smoking 3-4 cigarettes a day but has had none in 2 weeks. She states she lives with her significant other and her children. TRAVEL OUTSIDE OF THE [place] IN LAST 30 DAYS: No - HPI Patient complains to provider of: Asthma, Short of breath Onset: Just prior to arrival Duration: Better Initiating Event: URI Severity: Severe Pain Level: 1 Context: Hx asthma Short of Breath: Mild Chest pain/discomfort: Tightness Cough: Nonproductive Sputum amount: None Associated symptoms: Chest pain/discomfort, Cough, PND, Runny nose, Sinus pain/ pressure, Wheezing Similar symptoms previously: Yes Recently seen / treated by doctor: No - Related Data Allergies/Adverse Reactions: No Known Allergies Allergy (Verified 09/07/17 16:06) Past Medical History - General Information source: Patient - Social History Smoking Status: Former Smoker - States she stopped smoking 2 weeks ago Cigarette use (# per day): No Chew tobacco use (# tins/day): No Smoking Education Provided: No Frequency of alcohol use: None Drug Abuse: None Occupation: [employer] Lives with: Family Family History: Arthritis, CAD, COPD, CVA, DM, Hyperlipidemia, Hypertension, Malignancy. denies: Thyroid Disfunction Patient has suicidal ideation: No Patient has homicidal ideation: No - Past Medical History Cardiac Medical History: Reports: None Pulmonary Medical History: Reports: Hx Asthma, Hx Pneumonia EENT Medical History: Reports: None Neurological Medical History: Reports: Hx Migraine Endocrine Medical History: Reports: None Renal/ Medical History: Reports: None Malignancy Medical History: Reports: None GI Medical History: Reports: Hx Gastroesophageal Reflux Disease Musculoskeltal Medical History: Reports None Skin Medical History: Reports None Psychiatric Medical History: Reports: Hx Depression - depression Traumatic Medical History: Reports: None Infectious Medical History: Reports: None Past Surgical History: Reports: Hx Myringotomy, Hx Tonsillectomy - Immunizations Immunizations up to date: Yes Hx Diphtheria, Pertussis, Tetanus Vaccination: Yes Review of Systems - Review of Systems Constitutional: Recent illness EENT: Nose discharge, Sinus pressure, Sinus discharge Cardiovascular: No symptoms reported Respiratory: Cough, Short of breath, Wheezing Gastrointestinal: No symptoms reported Genitourinary: No symptoms reported Female Genitourinary: No symptoms reported Musculoskeletal: No symptoms reported Skin: No symptoms reported Hematologic/Lymphatic: No symptoms reported Neurological/Psychological: No symptoms reported -: Yes All other systems reviewed and negative Physical Exam - Vital signs Vitals: Temp Pulse Resp BP Pulse Ox 98.4 F 109 H 20 131/81 H 94 09/07/17 16:09 09/07/17 16:09 09/07/17 16:09 09/07/17 16:09 09/07/17 16:09 Interpretation: Normal - General General appearance: Appears well, Alert - HEENT Head: Normocephalic, Atraumatic Eyes: Normal Pupils: PERRL Ears: Normal External canal: Normal Tympanic membrane: Normal Sinus: Normal Nasal: Purulent discharge, Swelling Mouth/Lips: Normal Mucous membranes: Normal Pharynx: Post nasal drainage Neck: Normal - Respiratory Respiratory status: No respiratory distress Chest status: Nontender Breath sounds: Decreased air movement, Nonproductive cough, Wheezing Chest palpation: Normal - Cardiovascular Rhythm: Regular Heart sounds: Normal auscultation Murmur: No - Abdominal Inspection: Normal Distension: No distension Bowel sounds: Normal Tenderness: Nontender Organomegaly: No organomegaly - Back Back: Normal, Nontender - Extremities General upper extremity: Normal inspection, Nontender, Normal color, Normal ROM , Normal temperature General lower extremity: Normal inspection, Nontender, Normal color, Normal ROM , Normal temperature, Normal weight bearing. No: Theron's sign - Neurological Neuro grossly intact: Yes Cognition: Normal Orientation: AAOx4 [place] Coma Scale Eye Opening: Spontaneous [place] Coma Scale Verbal: Oriented Roge Coma Scale Motor: Obeys Commands [place] Coma Scale Total: 15 Speech: Normal Motor strength normal: LUE, RUE, LLE, RLE Sensory: Normal - Psychological Associated symptoms: Normal affect, Normal mood - Skin Skin Temperature: Warm Skin Moisture: Dry Skin Color: Normal Course - Re-evaluation Re-evalutation: 09/07/17 18:07 Patient states she is feeling much better after the albuterol nebulizers and prednisone. She was also given Compazine and Benadryl for her headache while she was here. Patient was discharged home with a albuterol inhaler and a prescription for B albuterol inhaler as well as prescription for prednisone and Compazine. Patient was instructed to please follow-up with her primary doctor tomorrow. - Vital Signs Vital signs: Temp Pulse Resp BP Pulse Ox 98.4 F 109 H 20 131/81 H 94 09/07/17 16:09 09/07/17 16:09 09/07/17 16:09 09/07/17 16:09 09/07/17 16:09 Discharge - Discharge Clinical Impression: Asthma Qualifiers: Asthma severity: mild Asthma persistence: intermittent Asthma complication type : with acute exacerbation Qualified Code(s): J45.21 - Mild intermittent asthma with (acute) exacerbation URI (upper respiratory infection) Qualifiers: URI type: unspecified URI Qualified Code(s): J06.9 - Acute upper respiratory infection, unspecified Instructions: Family Physicians / Practices Additional Instructions: ASTHMA: You have been diagnosed as having asthma. This is a condition where there is episodic tightness in the bronchial tubes. Allergies, infections, and polluted or cold air may be contributing factors. Emergency treatment of a severe asthma attack may include adrenaline shots , or bronchodilator aerosol. You may feel lightheaded, have a decreased exercise tolerance and a rapid pulse for an hour or two. Rest and get plenty of fluids. Home treatment of asthma requires bronchodilator drugs. These can be administered by injection, inhalation, or by mouth. Antibiotics and corticosteroids may be required for some patients. You should avoid chemical fumes, dusts, pollens, and exercising in very cold or dry air. If you smoke, stop!! If you develop a fever, increased wheezing, chest pain, or severe shortness of breath, you should contact the doctor immediately. UPPER RESPIRATORY ILLNESS: You have a viral infection of the respiratory passages -- a "cold." This common infection causes nasal congestion, drainage, and often sore throat and cough. It is highly contagious. The disease usually lasts about 10 to 14 days. There is no "cure" for the viral infection -- it must run its course. If there is a complication, such as bacterial infection in the nose, sinuses, middle ear, or bronchial tubes, antibiotics may be required. The antibiotics won't affect the virus. Drink plenty of fluids. A humidifier may help. An expectorant medication or decongestant may make you more comfortable. Use acetaminophen or ibuprofen for fever or aches. See the doctor if fever persists over two days, if there is any significant worsening of your symptoms, or if you simply fail to improve as expected. You have been given an injection of or oral medicine of the cortisone/ steroid class. This medication is used to control inflammation or allergy. Teo t is usually only given for a short period of time, until the acute process subsides. There are usually no side effects from short-term use of cortisone-like medications. Some persons feel an increased sense of well-being and are not sleepy at bedtime. Long-term use of cortisone medications is best avoided, unless required for a severe condition. If your condition does not remit, or relapses after the course of corticosteroid medication, you should consult your physician. INHALED BRONCHODILATORS: You have received treatment(s) of and/or prescription for an inhaled bronchodilator -- a medication which stimulates the airways in the lung to dilate. This improves the flow of air in asthma, bronchitis, and emphysema. These medicines have some similarity to adrenaline, and can cause similar side effects: shakiness, racing heart, and a sense of nervousness. These side effects decrease with time. Contact your doctor if these side effects are severe. Do not over-use the medicine. Too-frequent use of the inhaler may make it ineffective. Call your doctor if the inhaler is not controlling your symptoms at the prescribed doses. SMOKING: If you smoke, you should stop smoking. The tar and chemicals in cigarette smoke are harmful. Smoking has been shown to cause: emphysema chronic bronchitis lung cancer mouth and throat cancer stomach and pancreas cancer premature aging defects In addition, smoking increases ear and lung infections in children of smokers. USE OF ACETAMINOPHEN (Tylenol): Acetaminophen may be taken for pain relief or fever control. It's much safer than aspirin, offering a wider range of "safe" dosages. It is safe during . Some brand names are Tylenol, Panadol, Datril, Anacin 3, Tempra, and Liquiprin. Acetaminophen can be repeated every four hours. The following are maximum recommended dosages: WEIGHT Dose Drops Elixir Chewable( 80mg) (LBS.) drprs=droppers tsp=teaspoon 6 40 mg 0.4 ml (1/2) 6-11 80 mg 0.8 ml (full) tsp 1 tab 12-16 120 mg 1 1/2 drprs 3/4 tsp 1 1/2 tabs 17-23 160 mg 2 drprs 1 tsp 2 tabs 24-30 240 mg 3 drprs 1 1/2 tsp 3 tabs 30-35 320 mg 2 tsp 4 tabs 36-41 360 mg 2 1/4 tsp 4 1/2 tabs 42-47 400 mg 2 1/2 tsp 5 tabs 48-53 480 mg 3 tsp 6 tabs 54-59 520 mg 3 1/4 tsp 6 1/2 tabs 60-64 560 mg 3 1/2 tsp 7 tabs 65-70 600 mg 3 3/4 tsp 7 1/2 tabs 71-76 640 mg 4 tsp 8 tabs 77-82 720 mg 4 1/2 tsp 9 tabs 83-88 800 mg 5 tsp 10 tabs >89 pounds or adults 650 mg to 900 mg Acetaminophen can be repeated every four hours. Maximum dose not to exceed 4000 mg a day. These maximum recommended dosages are slightly higher than the dosages written on the product container, but these dosages are very safe and below the toxic dosage for acetaminophen. FOLLOW-UP CARE: If you have been referred to a physician for follow-up care, call the physician s office for an appointment as you were instructed or within the next two days. If you experience worsening or a significant change in your symptoms, notify the physician immediately or return to the Emergency Department at any time for re-evaluation. Prescriptions: Albuterol Sulfate [Proair HFA Inhalation Aerosol 8.5 gm MDI] 2 puff IH Q4H PRN # 1 mdi PRN Reason: Prednisone [Sterapred Ds] 1 pkg PO ASDIR PRN 12 Days tab.ds.pk PRN Reason: Prochlorperazine Maleate [Compazine 10 mg Tablet] 10 mg PO ASDIR PRN #10 tablet PRN Reason: Forms: Elevated Blood Pressure, Return to Work
[2017-09-07] MEDS: ALBUTEROL SULFATE 0.083% NEB 2.5 MG/3 ML AMPUL NEB SCH ×3 (16:50→17:22)
[2017-09-07] MEDS ORDERED: DIPHENHYDRAMINE HCL 50 MG CAPSULE PO ONE (16:55)
[2017-09-07] MEDS ORDERED: PROCHLORPERAZINE MALEATE 10 MG TABLET PO ONE (16:55)
[2017-09-07] MEDS ORDERED: ALBUTEROL SULFATE HFA (90 MCG/PUFF) 8 GM MDI (1 MDI/ER DISP) IH ONE (17:52)
[2017-09-07 18:11] VITALS: BP 139/66
== END 2017-09-07 18:09 | disposition home or self-care (01) ==
LOC: ER 16:06
DX: J06.9 Acute upper respiratory infection, unspecified (principal); J45.21 Mild intermittent asthma with (acute) exacerbation; R05 Cough; R06.02 Shortness of breath; F17.200 Nicotine dependence, unspecified, uncomplicated
CPT/HCPCS: 94640; 99284; J7512; S0183; J3490

== ENCOUNTER 2017-10-03 10:10 | Emergency (ER) | payer SELFPAY ==
[2017-10-03] MEDS ORDERED: ALBUTEROL SULFATE 0.083% NEB 2.5 MG/3 ML AMPUL NEB ONE (11:13)
[2017-10-03] MEDS ORDERED: GUAIFENESIN/D-METHORPHAN (200-20 MG) SYRUP 10 ML PO ONE (11:14)
--- NOTE | 2017-10-03 11:14 | ER Document Report ---
ED Flu Like - General Chief Complaint: Flu Symptoms Stated Complaint: FLU LIKE SYMPTOMS Time Seen by Provider: 10/03/17 10:51 Mode of Arrival: Ambulatory Information source: Patient Notes: Patient is a 32-year-old asthmatic female who presents to the ER today for 4 days of cough, wheezing, shortness of breath. Patient states that she does not have any albuterol at home and she does not have insurance. Patient denies any fever or chills that she knows of, body aches, vomiting or diarrhea. TRAVEL OUTSIDE OF THE [place] IN LAST 30 DAYS: No - Related Data Allergies/Adverse Reactions: No Known Allergies Allergy (Verified 10/03/17 10:32) Past Medical History - General Information source: Patient - Social History Smoking Status: Unknown if Ever Smoked Family History: Arthritis, CAD, COPD, CVA, DM, Hyperlipidemia, Hypertension, Malignancy. denies: Thyroid Disfunction Patient has suicidal ideation: No Patient has homicidal ideation: No Pulmonary Medical History: Reports: Hx Asthma, Hx Pneumonia Neurological Medical History: Reports: Hx Migraine Renal/ Medical History: Denies: Hx Peritoneal Dialysis GI Medical History: Reports: Hx Gastroesophageal Reflux Disease Psychiatric Medical History: Reports: Hx Depression - depression Past Surgical History: Reports: Hx Myringotomy, Hx Tonsillectomy. Denies: Hx Tubal Ligation - Immunizations Immunizations up to date: Yes Hx Diphtheria, Pertussis, Tetanus Vaccination: Yes Review of Systems - Review of Systems Constitutional: No symptoms reported EENT: See HPI Cardiovascular: No symptoms reported Respiratory: See HPI Gastrointestinal: No symptoms reported Genitourinary: No symptoms reported Female Genitourinary: No symptoms reported Musculoskeletal: No symptoms reported Skin: No symptoms reported Hematologic/Lymphatic: No symptoms reported Neurological/Psychological: No symptoms reported Physical Exam - Vital signs Vitals: Temp Pulse Resp BP Pulse Ox 97.6 F 69 16 104/61 100 10/03/17 10:40 10/03/17 10:40 10/03/17 10:40 10/03/17 10:40 10/03/17 10:40 - Notes Notes: PHYSICAL EXAMINATION: GENERAL: Well-appearing and in no acute distress. HEAD: Atraumatic, normocephalic. EYES: Pupils equal round and reactive to light, extraocular movements intact, sclera anicteric, conjunctiva are normal. ENT: ear canals without erythema or foreign body, TMs pearly gonzales with good bony landmarks, nares patent, oropharynx clear without exudates. Moist mucous membranes. NECK: Normal range of motion, supple without lymphadenopathy LUNGS: Very mild expiratory wheezes, no rales or rhonchi. HEART: Regular rate and rhythm without murmurs ABDOMEN: Soft, no tenderness. No guarding, no rebound BACK: no vertebral tenderness, normal ROM GI/: no CVA tenderness EXTREMITIES: Normal range of motion, no pitting edema. No cyanosis. NEUROLOGICAL: Cranial nerves grossly intact. Normal sensory/motor exams. PSYCH: Normal mood, normal affect. SKIN: Warm, Dry, normal turgor, no rashes or lesions noted Course - Re-evaluation Re-evalutation: 10/03/17 12:15 Patient will go home with albuterol inhaler from the emergency department. - Vital Signs Vital signs: Temp Pulse Resp BP Pulse Ox 97.6 F 69 16 104/61 100 10/03/17 10:40 10/03/17 10:40 10/03/17 10:40 10/03/17 10:40 10/03/17 10:40 Discharge - Discharge Clinical Impression: Upper respiratory infection Qualifiers: URI type: acute nasopharyngitis (common cold) Qualified Code(s): J00 - Acute nasopharyngitis [common cold] Asthma Qualifiers: Asthma severity: unspecified severity Asthma persistence: unspecified Asthma complication type: unspecified Qualified Code(s): J45.909 - Unspecified asthma, uncomplicated Condition: Stable Disposition: HOME, SELF-CARE Additional Instructions: Return immediately for any new or worsening symptoms. Follow up with primary care provider, call tomorrow to make followup appointment. Prescriptions: Cetirizine HCl [Zyrtec 10 mg Tablet] 1 tab PO DAILY #30 tablet Forms: Return to Work
[2017-10-03] MEDS ORDERED: ALBUTEROL SULFATE HFA (90 MCG/PUFF) 8 GM MDI (1 MDI/ER DISP) IH PRN (12:16)
[2017-10-03 12:31] VITALS: BP 117/75
== END 2017-10-03 12:31 | disposition home or self-care (01) ==
LOC: ER 10:10
DX: J00 Acute nasopharyngitis [common cold] (principal); J45.909 Unspecified asthma, uncomplicated; R05 Cough; R06.02 Shortness of breath
CPT/HCPCS: 94640; 99283; J3490 ×2

== ENCOUNTER 2017-10-26 13:02 | Emergency (ER) | payer SELFPAY ==
[2017-10-26] MEDS ORDERED: IPRATROPIUM/ALBUTEROL 0.5-2.5 MG/3 ML AMPUL NEB ONE ×2 (14:12→14:19)
[2017-10-26] MEDS ORDERED: ALBUTEROL SULFATE 0.083% NEB 2.5 MG/3 ML AMPUL NEB ONE (14:35)
[2017-10-26] MEDS ORDERED: PREDNISONE 20 MG TABLET PO ONE (14:35)
--- NOTE | 2017-10-26 14:42 | ER Document Report ---
ED General - General Chief Complaint: Flu Symptoms Stated Complaint: BREATHING ISSUES Time Seen by Provider: 10/26/17 14:07 Mode of Arrival: Ambulatory Information source: Patient Notes: 32-year-old female with a history of asthma and tobacco use presents with complaint of shortness of breath that started 1 day prior to arrival. She states she is not currently on any medications for her asthma. She denies any recent illnesses. She does admit to smoking 2-3 packs of cigarettes per week. He has never been hospitalized for her asthma in the past. She denies associated fever, chills, nausea, vomiting. She does admit to an associated dry cough. Denies recent travel, recent surgery, estrogen use or prior history of DVT and PE. TRAVEL OUTSIDE OF THE [place] IN LAST 30 DAYS: No - HPI Onset: Yesterday Onset/Duration: Gradual Quality of pain: Achy - Aching chest pain with cough only Severity: Mild Associated symptoms: Chest pain - With coughing only., Nonproductive cough. denies: Chills, Fever, Hurts to breath, Leg swelling, Nausea, Vomiting Exacerbated by: Coughing Relieved by: Denies Similar symptoms previously: Yes Recently seen / treated by doctor: No - Related Data Allergies/Adverse Reactions: No Known Allergies Allergy (Verified 10/26/17 13:02) Past Medical History - General Information source: Patient - Social History Smoking Status: Current Every Day Smoker Cigarette use (# per day): Yes - 10-12 Chew tobacco use (# tins/day): No Smoking Education Provided: Yes Frequency of alcohol use: None Drug Abuse: None Lives with: Spouse/Significant other Family History: Arthritis, CAD, COPD, CVA, DM, Hyperlipidemia, Hypertension, Malignancy. denies: Thyroid Disfunction Patient has suicidal ideation: No Patient has homicidal ideation: No Pulmonary Medical History: Reports: Hx Asthma, Hx Pneumonia Neurological Medical History: Reports: Hx Migraine Renal/ Medical History: Denies: Hx Peritoneal Dialysis GI Medical History: Reports: Hx Gastroesophageal Reflux Disease Psychiatric Medical History: Reports: Hx Depression - depression Past Surgical History: Reports: Hx Myringotomy, Hx Tonsillectomy. Denies: Hx Tubal Ligation - Immunizations Immunizations up to date: Yes Hx Diphtheria, Pertussis, Tetanus Vaccination: Yes Review of Systems - Review of Systems Constitutional: See HPI. denies: Fever EENT: denies: Throat pain Cardiovascular: Chest pain - With coughing only Respiratory: Cough, Short of breath, Wheezing Gastrointestinal: No symptoms reported Genitourinary: No symptoms reported Physical Exam - Vital signs Vitals: Temp Pulse Resp BP Pulse Ox 98.2 F 106 H 26 H 112/70 93 10/26/17 13:22 10/26/17 13:22 10/26/17 13:22 10/26/17 13:22 10/26/17 13:22 Interpretation: Tachycardic, Tachypneic. No: Hypoxic - General General appearance: Appears well, Alert In distress: Mild - HEENT Head: Normocephalic, Atraumatic Eyes: Normal Extraocular movements intact: Yes Pupils: PERRL Mucous membranes: Normal - Respiratory Respiratory status: No respiratory distress, Tachypnea. No: Respiratory distress, Labored, Retractions Chest status: Nontender Breath sounds: Normal, Decreased air movement, Nonproductive cough, Wheezing Chest palpation: Normal - Cardiovascular Rhythm: Regular Heart sounds: Normal auscultation Murmur: No Pulses: Normal: Radial, Dorsalis pedis - Back Back: Normal, Nontender - Skin Skin Temperature: Warm Skin Moisture: Dry Skin Color: Normal. negative: Cyanotic Course - Re-evaluation Re-evalutation: 10/26/17 15:31 Patient received a DuoNeb +2 L additional albuterol treatments, prednisone during her ED course. On reevaluation wheezing have improved. 10/26/17 20:44 32-year-old female with a history of asthma and tobacco use presents with complaint of shortness of breath that started 1 day prior to arrival. Associated symptoms include a dry cough. Upon arrival vitals reviewed. Patient is afebrile, normotensive. She is initially tachypneic but this resolved. Exam was significant for diffuse inspiratory and expiratory wheezing. Patient did receive breathing treatments and prednisone with much improvement during the ED course. Smoking cessation was advised. Patient is not interested at this time. MDI was provided in the emergency department and the patient was discharged home with a prescription for prednisone. - Vital Signs Vital signs: Temp Pulse Resp BP Pulse Ox 98.7 F 120 H 16 132/81 H 100 10/26/17 15:53 10/26/17 15:53 10/26/17 15:53 10/26/17 15:53 10/26/17 15:53 Discharge - Discharge Clinical Impression: Tobacco use, Encounter for smoking cessation counseling Asthma exacerbation Qualifiers: Asthma severity: moderate Asthma persistence: unspecified Qualified Code(s): J45.901 - Unspecified asthma with (acute) exacerbation Condition: Good Disposition: HOME, SELF-CARE Instructions: Asthma ([facility]), Stop Smoking ([facility]) Prescriptions: Albuterol Sulfate [Albuterol Sulfate 2.5mg/3 mL] 2.5 mg IH Q4H PRN #25 appful PRN Reason: Shortness Of Breath Prednisone 60 mg PO DAILY #15 tablet
[2017-10-26] MEDS ORDERED: ALBUTEROL SULFATE HFA (90 MCG/PUFF) 8 GM MDI (1 MDI/ER DISP) IH PRN (15:31)
[2017-10-26 15:54] VITALS: BP 132/81
== END 2017-10-26 15:53 | disposition home or self-care (01) ==
LOC: ER 13:02
DX: J45.901 Unspecified asthma with (acute) exacerbation (principal); F17.210 Nicotine dependence, cigarettes, uncomplicated; Z71.6 Tobacco abuse counseling; R05 Cough; R06.02 Shortness of breath; R00.0 Tachycardia, unspecified; Z87.01 Personal history of pneumonia (recurrent)
CPT/HCPCS: 94640 ×2; 99283; J7512; J3490; J7620

== ENCOUNTER 2018-03-07 12:21 | Emergency (ER) | payer SELFPAY ==
[2018-03-07] MEDS ORDERED: IPRATROPIUM/ALBUTEROL 0.5-2.5 MG/3 ML AMPUL NEB ONE ×4 (12:39→13:33)
--- NOTE | 2018-03-07 12:43 | ER Document Report ---
ED Medical Screen (RME) - General Chief Complaint: Breathing Difficulty Stated Complaint: ASTHMA Time Seen by Provider: 03/07/18 12:40 Mode of Arrival: Ambulatory Information source: Patient Notes: 33-year-old female with a history of smoking presents to the emergency room with shortness of breath and wheezing for the past 2 days. Patient denies fever , chills, nausea vomiting. No history of intubations in the past. No sick contacts. Medications: None Past surgical history: None Allergies: None Primary CARE physician: None TRAVEL OUTSIDE OF THE [place] IN LAST 30 DAYS: No - HPI Onset: Yesterday Onset/Duration: Gradual Quality of pain: No pain Severity: None Associated Symptoms: Shortness of breath. denies: Chest pain, Fever Exacerbated by: Movement Relieved by: Remaining still Similar symptoms previously: Yes Recently seen / treated by doctor: No - Related Data Smoking: Quit greater than 1 year Frequency of alcohol use: None Drug Abuse: None Allergies/Adverse Reactions: No Known Allergies Allergy (Verified 03/07/18 12:21) Past Medical History - General Information source: Patient - Social History Cigarette use (# per day): No Chew tobacco use (# tins/day): No Frequency of alcohol use: None Drug Abuse: None Lives with: Family Family history: None - Past Medical History Cardiac Medical History: Reports: None Pulmonary Medical History: Reports: Hx Asthma, Hx Pneumonia Neurological Medical History: Reports: Hx Migraine Renal/ Medical History: Denies: Hx Peritoneal Dialysis GI Medical History: Reports: Hx Gastroesophageal Reflux Disease Psychiatric Medical History: Reports: Hx Depression - depression Past Surgical History: Reports: Hx Myringotomy, Hx Tonsillectomy. Denies: Hx Tubal Ligation - Immunizations Immunizations up to date: Yes Hx Diphtheria, Pertussis, Tetanus Vaccination: Yes Review of Systems - Review of Systems Constitutional: denies: Chills, Fever EENT: No symptoms reported Cardiovascular: No symptoms reported Respiratory: See HPI Gastrointestinal: No symptoms reported Genitourinary: No symptoms reported Female Genitourinary: No symptoms reported Musculoskeletal: No symptoms reported Skin: No symptoms reported Hematologic/Lymphatic: No symptoms reported Neurological/Psychological: No symptoms reported Physical Exam - Vital signs Vitals: Temp Pulse Resp BP Pulse Ox 97.7 F 96 32 H 109/91 H 96 03/07/18 12:29 03/07/18 12:29 03/07/18 12:29 03/07/18 12:29 03/07/18 12:29 Notes: Physical exam: GENERAL: 33-year-old female, alert and oriented 3, moderate respiratory distress. Oxygen saturation 96% on room air. Tachypneic with a respiratory rate of 32. HEAD: Atraumatic, normocephalic. EYES: Pupils equal round and reactive to light, extraocular movements intact, sclera anicteric, conjunctiva are normal. ENT: TMs normal, nares patent, oropharynx clear without exudates. Moist mucous membranes. NECK: Normal range of motion, supple without obvious mass or JVD. LUNGS: Tight breath sounds with bilateral wheezing. With accessory muscle use. HEART: Regular rate and rhythm without murmurs, rubs or gallops. ABDOMEN: Soft, normoactive bowel sounds. No tenderness to palpation. No guarding, no rebound. No masses appreciated. EXTREMITIES: Normal range of motion, no pitting or edema. No clubbing or cyanosis. NEUROLOGICAL: Cranial nerves II through XII grossly intact. Normal speech, moving all extremities. PSYCH: Normal mood, normal affect. SKIN: Warm, Dry, normal turgor, no rashes or lesions noted. Course - Re-evaluation Re-evalutation: 03/07/18 13:48 Patient improved significantly after second nebulizer. Chest x-ray shows no pneumothorax or infiltrates. Patient feels good enough to go home. 03/07/18 13:48 03/07/18 13:50 Patient given an inhaler to go home with. She was given a prescription for albuterol (she has a home nebulizer). I have given her the number for the [facility]. I have explained symptoms to return to the ER for. - Vital Signs Vital signs: Temp Pulse Resp BP Pulse Ox 98.6 F 83 20 113/62 98 03/07/18 14:24 03/07/18 14:24 03/07/18 14:21 03/07/18 14:24 03/07/18 14:21 - Diagnostic Test Radiology reviewed: Image reviewed, Reports reviewed - Chest x-ray shows no obvious infiltrates. Doctor's Discharge - Discharge Clinical Impression: Asthma exacerbation Condition: Stable Disposition: HOME, SELF-CARE Instructions: Asthma ([facility]) Additional Instructions: Use the inhaler as instructed: 2 puffs every 4-6 hours as needed for wheezing. I prescribed some albuterol for her nebulizer at home Return to the emergency room for worsening shortness of breath, difficulty breathing or any concerns to getting worse. Follow-up at the [facility]. Call on Friday for the next available appointment. Prescriptions: Albuterol Sulfate [Proair HFA Inhalation Aerosol 8.5 gm MDI] 2 puff IH Q4H PRN # 1 mdi PRN Reason: Albuterol Sulfate [Albuterol Sulfate 2.5mg/3 mL] 2.5 mg IH Q4 PRN #20 ml PRN Reason: Referrals: [facility] [Provider Group] - Follow up as needed (This is the number the [facility] affiliated with the hospital.)
--- NOTE | 2018-03-07 13:32 | RADIOLOGY REPORT (SQ) ---
EXAM DESCRIPTION: CHEST 2 VIEWS COMPLETED DATE/TIME: 03/07/2018 1:24 pm REASON FOR STUDY: sob COMPARISON: 2017. TECHNIQUE: Frontal and lateral radiographic views of the chest acquired. NUMBER OF VIEWS: Two view. LIMITATIONS: None. FINDINGS: LUNGS AND PLEURA: No opacities, masses or pneumothorax. No pleural effusion. MEDIASTINUM AND HILAR STRUCTURES: No masses or contour abnormalities. HEART AND VASCULAR STRUCTURES: Heart normal size. No evidence for failure. BONES: No acute findings. HARDWARE: None in the chest. OTHER: No other significant finding. IMPRESSION: NO SIGNIFICANT RADIOGRAPHIC FINDING IN THE CHEST. TECHNICAL DOCUMENTATION: JOB ID: [id number] [employer]- All Rights Reserved Reading location - IP/workstation name: [email or web address]
[2018-03-07] MEDS ORDERED: ALBUTEROL SULFATE HFA (90 MCG/PUFF) 8 GM MDI (1 MDI/ER DISP) IH PRN (13:33)
[2018-03-07 14:29] VITALS: BP 113/62
== END 2018-03-07 16:36 | disposition home or self-care (01) ==
LOC: ER 12:21
DX: J45.901 Unspecified asthma with (acute) exacerbation (principal); R06.02 Shortness of breath; Z87.891 Personal history of nicotine dependence
CPT/HCPCS: 94640 ×2; 99285; 71046; J3490; J7620

== ENCOUNTER 2018-04-29 11:38 | Emergency (ER) | payer SELFPAY ==
[2018-04-29] MEDS ORDERED: ALBUTEROL SULFATE HFA (90 MCG/PUFF) 8 GM MDI (1 MDI/ER DISP) IH ONE (12:49)
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
[2018-04-29 13:23] VITALS: BP 103/70
== END 2018-04-29 13:26 | disposition home or self-care (01) ==
LOC: ER 11:38
DX: J45.20 Mild intermittent asthma, uncomplicated (principal)
CPT/HCPCS: 99284; J3490

== ENCOUNTER 2018-06-09 01:38 | Emergency (ER) | payer SELFPAY ==
[2018-06-09] MEDS ORDERED: ALBUTEROL SULFATE 0.083% NEB 2.5 MG/3 ML AMPUL NEB ONE ×2 (02:00→02:51)
[2018-06-09] MEDS ORDERED: IPRATROPIUM/ALBUTEROL 0.5-2.5 MG/3 ML AMPUL NEB ONE (02:04)
[2018-06-09] MEDS ORDERED: METHYLPREDNISOLONE INJ 125 MG/2 ML SDV IV ONE (02:05)
--- NOTE | 2018-06-09 02:07 | ER Document Report ---
ED General - General Mode of Arrival: Ambulatory Information source: Patient TRAVEL OUTSIDE OF THE [place] IN LAST 30 DAYS: No - General Chief Complaint: Shortness Of Breath Stated Complaint: DIFFICULTY BREATHING Time Seen by Provider: 06/09/18 01:55 Notes: Patient is a 33-year-old female with asthma presents to the emergency department complaining of shortness of breath onset tonight. Patient states that she was at work when she began to cough and wheeze. She then proceeded to use her albuterol inhaler which she states did not help. Patient mentions that the inhaler is and she does not know if this had any effect of it working properly. Patient states that she would occasionally have an asthma flare up every couple of months and when she is around cats. She further states that during these asthma flares she would occasionally receive steroids. She denies a history of hospitalization or intubation due to her asthma. Patient states that she takes Zyrtec as needed. (NERISSA SAM) - Related Data Allergies/Adverse Reactions: No Known Allergies Allergy (Verified 04/29/18 11:38) Past Medical History - General Information source: Patient - Social History Smoking Status: Former Smoker Cigarette use (# per day): No Chew tobacco use (# tins/day): No Smoking Education Provided: No Frequency of alcohol use: None Family History: Arthritis, CAD, COPD, CVA, DM, Hyperlipidemia, Hypertension, Malignancy Pulmonary Medical History: Reports: Hx Asthma, Hx Pneumonia Neurological Medical History: Reports: Hx Migraine GI Medical History: Reports: Hx Gastroesophageal Reflux Disease Psychiatric Medical History: Reports: Hx Depression - depression Past Surgical History: Reports: Hx Myringotomy, Hx Tonsillectomy - Immunizations Immunizations up to date: Yes Hx Diphtheria, Pertussis, Tetanus Vaccination: Yes Review of Systems - Review of Systems Constitutional: No symptoms reported EENT: No symptoms reported Cardiovascular: No symptoms reported Respiratory: See HPI, Cough, Wheezing Gastrointestinal: No symptoms reported Genitourinary: No symptoms reported Female Genitourinary: No symptoms reported Musculoskeletal: No symptoms reported Skin: No symptoms reported Hematologic/Lymphatic: No symptoms reported Neurological/Psychological: No symptoms reported -: Yes All other systems reviewed and negative Physical Exam - Vital signs Vitals: Temp Pulse Resp BP Pulse Ox 97.9 F 98 18 115/87 H 94 06/09/18 01:38 06/09/18 01:38 10/30/18 01:38 06/09/18 01:38 06/09/18 01:38 - Notes Notes: GENERAL: Alert. Appears short of breath. HEAD: Normocephalic, atraumatic. EYES: Pupils equal, round, and reactive to light. Extraocular movements intact. ENT: Oral mucosa moist, tongue midline. NECK: Full range of motion. Supple. Trachea midline. LUNGS: Appears short of breath with pursed lip breathing. 4-5 word sentences. Diffuse inspiratory squeaking, expiratory rhonchi. HEART: Regular rate and rhythm. No murmurs, gallops, or rubs. ABDOMEN: Soft, non-tender. Non-distended. Bowel sounds present in all 4 quadrants. EXTREMITIES: Moves all 4 extremities spontaneously. No edema, radial and dorsalis pedis pulses 2/4 bilaterally. No cyanosis. NEUROLOGICAL: Alert and oriented x3. Normal speech. PSYCH: Normal affect, normal mood. SKIN: Warm, dry, normal turgor. No rashes or lesions noted. (NERISSA SAM) Course - Re-evaluation Re-evalutation: 06/09/18 02:50 On initial exam patient appears quite short of breath, 3 duo nebs were given back to back, patient now is somewhat improved but wheezing has not completely resolved. Patient will have another albuterol breathing treatment given. Patient will also be given Solu-Medrol. 06/09/18 03:36 Rechecked again, continuing to wheeze, appears quite uncomfortable, will check flu swab and chest x-ray. 06/09/18 04:48 Influenza swabs are negative, chest x-ray has not yet been performed as there are multiple patients waiting for x-ray. Patient states she is feeling significantly better but not 100%. She does feel safe for discharge regardless of whether or not she has a pneumonia. At this point the patient will be signed out to Dr. Bentley Le, she will review the chest x-ray and if she has a pneumonia he will write a prescription for antibiotics. Patient will be rechecked prior to discharge. I have already written the patient a prescription for albuterol inhaler with 1 refill and a Deltasone taper. (PRICILA WHITE) - Vital Signs Vital signs: Temp Pulse Resp BP Pulse Ox 97.9 F 100 18 115/87 H 94 06/09/18 01:38 06/09/18 02:03 06/09/18 01:38 06/09/18 01:38 06/09/18 01:38 Discharge - Discharge Clinical Impression: Acute asthma exacerbation Condition: Stable Disposition: HOME, SELF-CARE Additional Instructions: I have prescribed you a steroid taper. Please take these as directed until they are gone. I have also prescribed you an albuterol inhaler. You should use this 2 puffs every 4 hours for the next 2 days. After that you should use 2 puffs up to every 4 hours as needed. You should make sure you continue taking your Zyrtec every day. You should also follow-up with your primary care physician and consider seeing a shuttlecock assembler so you can get on other medications that will help to better control your asthma. Prescriptions: Albuterol Sulfate [Proair HFA Inhalation Aerosol 8.5 gm MDI] 2 puff IH Q4H PRN # 1 mdi PRN Reason: Prednisone [Deltasone 10 mg Tablet] 10 mg PO ASDIR PRN #21 tablet PRN Reason: Forms: Return to Work Scribe Documentation - Scribe Written by Alfonzo:: Alfonzo Yadav, 06/09/2018 02:07 acting as scribe for :: Porfirio
[2018-06-09 04:39] LABS: A TYPE INFLUENZA AG NEGATIVE (NEGATIVE); B INFLUENZA AG NEGATIVE (NEGATIVE)
--- NOTE | 2018-06-09 06:31 | RADIOLOGY REPORT (SQ) ---
EXAM DESCRIPTION: XR CHEST 2 VIEWS COMPLETED DATE/TME: 06/09/2018 03:30 CLINICAL HISTORY: cough, wheezing COMPARISON: 03/07/2018 FINDINGS: Frontal and lateral views of the chest. The cardiomediastinal silhouette has normal size and contour. No consolidation, pneumothorax, or pleural effusion. Leads overlie the chest. No displaced rib fractures identified. Upper abdominal soft tissues are unremarkable. IMPRESSION: 1. No acute pulmonary process identified.
[2018-06-09] MEDS ORDERED: ALBUTEROL SULFATE HFA (90 MCG/PUFF) 8 GM MDI (1 MDI/ER DISP) IH ONE (06:36)
[2018-06-09 06:45] VITALS: BP 110/60
== END 2018-06-09 06:50 | disposition home or self-care (01) ==
LOC: ER 01:38
DX: J45.901 Unspecified asthma with (acute) exacerbation (principal); R06.02 Shortness of breath; R05 Cough; Z87.891 Personal history of nicotine dependence
CPT/HCPCS: 94640 ×2; 99285; 96374; 87804; 71046; J2930; J3490; J7620

== ENCOUNTER 2018-08-20 18:22 | Emergency (ER) | payer SELFPAY ==
[2018-08-20 18:39] VITALS: BP 123/68
== END 2018-08-20 19:24 | disposition left against medical advice (07) ==
LOC: ER 18:22
DX: Z53.21 Procedure and treatment not carried out due to patient leaving prior to being seen by health care provider (principal)

== ENCOUNTER 2018-08-20 22:35 | Emergency (ER) | payer SELFPAY ==
[2018-08-20] MEDS ORDERED: IBUPROFEN 600 MG TABLET PO ONE (23:04)
[2018-08-20] MEDS ORDERED: ACETAMINOPHEN 325 MG TABLET PO ONE (23:04)
--- NOTE | 2018-08-20 23:07 | ER Document Report ---
ED General - General Chief Complaint: Foot Pain Stated Complaint: LEFT FOOT PAIN Time Seen by Provider: 08/20/18 22:52 Notes: Patient is a 33-year-old female who presents to the emergency department with a chief complaint of left foot pain. She states that her pain started a few months ago, but her pain has gradually increased as time went on. Last week she was letting her friend's dog out of the house and she dove to shut the door with her foot and hurt her foot more. She has been using [id number] braces for her foot, with no relief. She has also been using 400 mg of Motrin and 500 mg of Tylenol twice a day for her pain, with little relief. She works as a restaurant server and walks a lot. She also has an complaint of a cough with wheezing for the past 2 days. She states that she is out of her inhaler. TRAVEL OUTSIDE OF THE [place] IN LAST 30 DAYS: No - Related Data Allergies/Adverse Reactions: No Known Allergies Allergy (Verified 08/20/18 18:23) Past Medical History - Social History Smoking Status: Never Smoker Frequency of alcohol use: None Drug Abuse: None Lives with: Family Family History: Arthritis, CAD, COPD, CVA, DM, Hyperlipidemia, Hypertension, Malignancy Pulmonary Medical History: Reports: Hx Asthma, Hx Pneumonia Neurological Medical History: Reports: Hx Migraine Renal/ Medical History: Denies: Hx Peritoneal Dialysis GI Medical History: Reports: Hx Gastroesophageal Reflux Disease Psychiatric Medical History: Reports: Hx Depression - depression Past Surgical History: Reports: Hx Myringotomy, Hx Tonsillectomy. Denies: Hx Tubal Ligation - Immunizations Immunizations up to date: Yes Hx Diphtheria, Pertussis, Tetanus Vaccination: Yes Review of Systems - Review of Systems Notes: REVIEW OF SYSTEMS: CONSTITUTIONAL : Denies recent illness. Denies recent unintentional weight loss. Denies fever, chills, or sweats. EENT: Denies eye, ear, throat, or mouth pain, discharge, or symptoms. Denies nasal or sinus congestion. CARDIOVASCULAR: Denies chest pain. RESPIRATORY: Denies shortness of breath, cough, congestion, difficulty breathing, or wheezing. GASTROINTESTINAL: Denies nausea, vomiting, and diarrhea. Denies abdominal pain. Denies constipation. GENITOURINARY: Denies difficulty urinating, burning, blood in urine, urgency or frequency. MUSCULOSKELETAL: See HPI SKIN: Denies rash, itchiness, or lesions HEMATOLOGIC : Denies easy bruising or bleeding. LYMPHATIC: Denies swollen, painful, enlarged glands. NEUROLOGICAL: Denies no numbness or tingling denies weakness. Denies headache. Denies altered mental status. Denies alteration in speech. PSYCHIATRIC: Denies stress, anxiety, alteration in sleep patterns, or depression. All other systems reviewed and negative. Physical Exam - Vital signs Vitals: Temp Pulse Resp BP Pulse Ox 98.0 F 81 20 118/67 100 08/20/18 22:38 08/20/18 22:38 08/20/18 22:38 08/20/18 22:38 08/20/18 22:38 - Notes Notes: PHYSICAL EXAMINATION: GENERAL: Appears well, healthy, well-nourished, no acute distress. HEAD: Normocephalic, atraumatic. EYES: PERRL, conjunctiva normal, all extraocular movements intact, sclera nonicteric ENT: Moist mucous membranes. NECK: Supple, no noticeable swelling, redness, rash. Normal range of motion. LUNGS: Equal breath sounds bilaterally. Very slight expiratory wheezes noted bilaterally to auscultation. CARDIOVASCULAR: S1-S2, regular rate, regular rhythm. Radial pulses 2+, normal. ABDOMEN: Normoactive bowel sounds. Soft, nontender, no guarding, no rebound tenderness, and no masses palpated. EXTREMITIES: Normal strength and range of motion, no pitting or edema. No cyanosis. NEUROLOGICAL: Moves all extremities upon command. Strength 5/5 in all extremities. PSYCH: Normal mood, normal affect. SKIN: Warm, dry. No rash, lesions, ulcerations noted. Normal skin turgor. Course - Re-evaluation Re-evalutation: 08/20/18 23:46 Patient's x-ray of her left foot is normal. I discussed with the patient the importance of proper footwear to help support her foot. She states she will buy new shoes and wear support. She has been ordered an albuterol inhaler for her asthma. Verbal discharge instructions were given to the patient. She verbalized understanding. She is stable for discharge. - Vital Signs Vital signs: Temp Pulse Resp BP Pulse Ox 97.7 F 75 19 107/59 L 99 08/20/18 23:55 08/20/18 23:55 08/20/18 23:55 08/20/18 23:55 08/20/18 23:55 Discharge - Discharge Clinical Impression: Left foot pain Condition: Stable Disposition: HOME, SELF-CARE Additional Instructions: Your seen today in the emergency department for left foot pain. Your foot pain is consistent with plantar fasciitis. Please buy new shoes to help support your feet. You may also buy inserts to help with your symptoms. Please try to find an insert that fit your feet well. You may take Motrin 600 mg and Tylenol 1000 mg every 6 hours as needed for your pain. If you are unable to walk, have worsening symptoms, or have any symptoms that are worrisome to you, please return to the emergency department. You have also been given an albuterol inhaler. Please use the inhaler with a spacer every 4-6 hours as needed for shortness of breath or wheezing.
--- NOTE | 2018-08-20 23:31 | RADIOLOGY REPORT (SQ) ---
EXAM DESCRIPTION: XR FOOT 3 OR MORE VIEWS COMPLETED DATE/TME: 08/20/2018 23:04 CLINICAL HISTORY: 33 years, Female, left foot pain COMPARISON: None. FINDINGS: 3 views of the left foot. No acute fracture or dislocation. The tarsals and metatarsals are appropriately aligned. Normal osseous mineralization. IMPRESSION: 1. No acute fracture or dislocation. copyright 2010 [employer]- All Rights Reserved
[2018-08-20] MEDS ORDERED: ALBUTEROL SULFATE HFA (90 MCG/PUFF) 8 GM MDI (1 MDI/ER DISP) IH PRN (23:42)
[2018-08-20 23:56] VITALS: BP 107/59
== END 2018-08-20 23:58 | disposition home or self-care (01) ==
LOC: ER 22:35
DX: M79.672 Pain in left foot (principal)
CPT/HCPCS: 99283; 73630; J3490

== ENCOUNTER 2018-09-03 00:05 | Emergency (ER) | payer SELFPAY ==
--- NOTE | 2018-09-03 01:20 | ER Document Report ---
ED Extremity Problem, Lower - General Chief Complaint: Foot Pain Stated Complaint: FOOT PAIN Time Seen by Provider: 09/03/18 01:19 Mode of Arrival: Ambulatory Information source: Patient Notes: Patient is a 33-year-old female with no significant or pertinent past medical history who presents with left foot pain. Patient does state that symptoms began 3 months ago without source of injury to her knowledge, denies numbness or tingling, was supposed to follow-up with orthopedic surgeon but never did. Onset: 3 months ago Provocation: Ambulation, weightbearing Quality: Aching, burning Radiation: Top of the foot Severity: Mild to moderate Timing: Intermittent TRAVEL OUTSIDE OF THE [place]. IN LAST 30 DAYS: No - Related Data Allergies/Adverse Reactions: No Known Allergies Allergy (Verified 08/20/18 18:23) Past Medical History - General Information source: Patient - Social History Smoking Status: Former Smoker Chew tobacco use (# tins/day): No Frequency of alcohol use: None Drug Abuse: None Lives with: Family Family History: Arthritis, CAD, COPD, CVA, DM, Hyperlipidemia, Hypertension, Malignancy Patient has suicidal ideation: No Patient has homicidal ideation: No Pulmonary Medical History: Reports: Hx Asthma, Hx Pneumonia EENT Medical History: Reports: None Neurological Medical History: Reports: Hx Migraine Endocrine Medical History: Reports: None Renal/ Medical History: Reports: None. Denies: Hx Peritoneal Dialysis Malignancy Medical History: Reports: None GI Medical History: Reports: Hx Gastroesophageal Reflux Disease Musculoskeletal Medical History: Reports None Skin Medical History: Reports None Psychiatric Medical History: Reports: Hx Depression - depression Traumatic Medical History: Reports: None Infectious Medical History: Reports: None Past Surgical History: Reports: Hx Myringotomy, Hx Tonsillectomy. Denies: Hx Tubal Ligation - Immunizations Immunizations up to date: Yes Hx Diphtheria, Pertussis, Tetanus Vaccination: Yes Review of Systems - Review of Systems Notes: REVIEW OF SYSTEMS: CONSTITUTIONAL : Denies fever, chills, or sweats. Denies recent illness. EENT: Denies eye, ear, throat, or mouth pain or symptoms. Denies nasal or sinus congestion. CARDIOVASCULAR: Denies chest pain. RESPIRATORY: Denies cough, cold, or chest congestion. Denies shortness of breath, difficulty breathing, or wheezing. GASTROINTESTINAL: Denies abdominal pain. Denies nausea, vomiting, or diarrhea. Denies constipation. Last BM: GENITOURINARY: Denies difficulty urinating, painful urination, burning, frequency, or blood in urine. FEMALE GENITOURINARY: Denies vaginal bleeding, abnormal or irregular periods. MUSCULOSKELETAL: Positive left foot pain. Denies neck or back pain. SKIN: Denies rash or skin lesions. HEMATOLOGIC : Denies easy bruising or bleeding. LYMPHATIC: Denies swollen, enlarged glands. NEUROLOGICAL: Denies altered mental status or loss of consciousness. Denies headache. Denies weakness or paralysis or loss of use of either side. Denies problems with gait or speech. Denies sensory or motor loss. PSYCHIATRIC: Denies anxiety or stress or depression. ALL OTHER SYSTEMS REVIEWED AND NEGATIVE. -: Yes All other systems reviewed and negative Physical Exam - Vital signs Vitals: Temp Pulse Resp BP Pulse Ox 98.1 F 90 18 134/77 H 99 09/03/18 00:26 09/03/18 00:26 09/03/18 00:26 09/03/18 00:26 09/03/18 00:26 - Notes Notes: PHYSICAL EXAMINATION: GENERAL: Well-appearing, well-nourished and in no acute distress. HEAD: Atraumatic, normocephalic. EYES: Pupils equal round and reactive to light, extraocular movements intact, sclera anicteric, conjunctiva are normal. ENT: nares patent, oropharynx clear without exudates. Moist mucous membranes. NECK: Normal range of motion, supple without lymphadenopathy LUNGS: Breath sounds clear to auscultation bilaterally and equal. No wheezes rales or rhonchi. HEART: Regular rate and rhythm without murmurs ABDOMEN: Soft, nontender, normoactive bowel sounds. No guarding, no rebound. No masses appreciated. EXTREMITIES: Mild tenderness on palpation to the dorsum of the left foot as well as both the medial and lateral aspect of the foot, no swelling or deformity, no erythema, range of motion is intact but limited secondary to pain. NEUROLOGICAL: No focal neurological deficits. Moves all extremities spontaneously and on command. PSYCH: Normal mood, normal affect. SKIN: Warm, Dry, normal turgor, no rashes or lesions noted. Course - Re-evaluation Re-evalutation: 09/03/18 02:58 No evidence of acute traumatic injury to require imaging at this time. Given symptoms have been ongoing for 3 months, likely tendinitis versus fasciitis. Patient will be given intramuscular Toradol, will have her left ankle and foot wrapped with an Jacob wrap, and will be discharged with orthopedic surgery follow- up and strict return precautions. Patient voices understanding and agreeing with the plan. - Vital Signs Vital signs: Temp Pulse Resp BP Pulse Ox 98.1 F 90 18 134/77 H 99 09/03/18 00:26 09/03/18 00:26 09/03/18 00:26 09/03/18 00:09/03/18 00:26 Discharge - Discharge Clinical Impression: Foot pain, left Condition: Good Disposition: HOME, SELF-CARE Instructions: Plantar Fasciitis or Heel Spur ([facility]) Additional Instructions: You have been evaluated in the Emergency Department for foot pain. Please follow-up with your physician and an Orthopedist as instructed in one week. Return to the Emergency Department if you experience numbness or tingling, or any other concerning symptoms. Prescriptions: Diclofenac Sodium 75 mg PO BID #30 tablet.dr Referrals: JUNAID AVILA MD [COMMUNITY BASED STAFF] - Follow up as needed Print Language: Persian
[2018-09-03] MEDS ORDERED: KETOROLAC TROMETHAMINE 60 MG/2 ML SDV IM ONE (02:18)
[2018-09-03 03:09] VITALS: BP 125/66
== END 2018-09-03 03:10 | disposition home or self-care (01) ==
LOC: ER 00:05
DX: M79.672 Pain in left foot (principal)
CPT/HCPCS: 99283; 96372; J1885

== ENCOUNTER 2018-09-22 18:30 | Emergency (ER) | payer SELFPAY ==
[2018-09-22 19:02] VITALS: BP 131/81
[2018-09-22] MEDS ORDERED: HYDROCODONE/ACETAMINOPHEN 5-325 MG TABLET PO ONE (20:07)
[2018-09-22] MEDS ORDERED: PENICILLIN V POTASSIUM 500 MG TABLET PO ONE (20:07)
--- NOTE | 2018-09-22 20:13 | ER Document Report ---
ED Oral Problem - General Chief Complaint: Toothache Stated Complaint: TOOTH PAIN Time Seen by Provider: 09/22/18 19:51 Mode of Arrival: Ambulatory Information source: Patient Notes: 33-year-old female presents to ED for complaint of dental pain for tooth #15 and 18 for several weeks. States the pain is gotten progressively worse and now she cannot sleep due to the pain. She states she has been using Tylenol and Motrin with no relief. States her mother had some viscous lidocaine and she used that with no relief. Patient is alert oriented respirations regular and unlabored speaking in full sentences walks with a even steady gait. TRAVEL OUTSIDE OF THE [place] IN LAST 30 DAYS: No - HPI Patient complains to provider of: Toothache Onset: Other - "Weeks " Onset: Gradual Quality of pain: Pressure, Sharp, Throbbing Severity: Moderate Pain Level: 4 Associated symptoms: Dental decay, Toothache Worsened by: Cold Relieved by: Nothing Similar symptoms previously: Yes Recently seen / treated by doctor/dentist: No - Related Data Allergies/Adverse Reactions: No Known Allergies Allergy (Verified 08/20/18 18:23) Past Medical History - General Information source: Patient - Social History Smoking Status: Former Smoker Cigarette use (# per day): No Chew tobacco use (# tins/day): No Smoking Education Provided: No Frequency of alcohol use: None Drug Abuse: None Occupation: Occupational Therapy Supervisor at [employer] Lives with: Other - Her children Family History: Arthritis, CAD, COPD, CVA, DM, Hyperlipidemia, Hypertension, Malignancy Patient has suicidal ideation: No Patient has homicidal ideation: No - Past Medical History Cardiac Medical History: Reports: None Pulmonary Medical History: Reports: Hx Asthma, Hx Pneumonia EENT Medical History: Reports: None Neurological Medical History: Reports: Hx Migraine Endocrine Medical History: Reports: None Renal/ Medical History: Reports: None Malignancy Medical History: Reports: None GI Medical History: Reports: Hx Gastroesophageal Reflux Disease Musculoskeletal Medical History: Reports None Skin Medical History: Reports None Psychiatric Medical History: Reports: Hx Depression - depression Traumatic Medical History: Reports: None Infectious Medical History: Reports: None Past Surgical History: Reports: Hx Myringotomy, Hx Tonsillectomy - Immunizations Immunizations up to date: Yes Hx Diphtheria, Pertussis, Tetanus Vaccination: Yes Review of Systems - Review of Systems Constitutional: No symptoms reported EENT: Mouth pain, Dental problem Cardiovascular: No symptoms reported Respiratory: No symptoms reported Gastrointestinal: No symptoms reported Genitourinary: No symptoms reported Female Genitourinary: No symptoms reported Musculoskeletal: No symptoms reported Skin: No symptoms reported Hematologic/Lymphatic: No symptoms reported Neurological/Psychological: No symptoms reported -: Yes All other systems reviewed and negative Physical Exam - Vital signs Vitals: Temp Pulse Resp BP Pulse Ox 97.6 F 83 16 131/81 H 100 09/22/18 19:01 09/22/18 19:01 09/22/18 19:01 09/22/18 19:01 09/22/18 19:01 Interpretation: Normal - General General appearance: Appears well, Alert - HEENT Head: Normocephalic, Atraumatic Eyes: Normal Pupils: PERRL Ears: Normal External canal: Normal Tympanic membrane: Normal Sinus: Normal Nasal: Normal Mouth/Lips: Caries Mucous membranes: Normal Pharynx: Erythema, Post nasal drainage Neck: Anterior cervical chain - Respiratory Respiratory status: No respiratory distress Chest status: Nontender Breath sounds: Nonproductive cough Chest palpation: Normal - Cardiovascular Rhythm: Regular Heart sounds: Normal auscultation Murmur: No - Abdominal Inspection: Normal Distension: No distension Bowel sounds: Normal Tenderness: Nontender Organomegaly: No organomegaly - Back Back: Normal, Nontender - Extremities General upper extremity: Normal inspection, Nontender, Normal color, Normal ROM, Normal temperature General lower extremity: Normal inspection, Nontender, Normal color, Normal ROM, Normal temperature, Normal weight bearing. No: Theron's sign - Neurological Neuro grossly intact: Yes Cognition: Normal Orientation: AAOx4 Redkey Coma Scale Eye Opening: Spontaneous Redkey Coma Scale Verbal: Oriented Redkey Coma Scale Motor: Obeys Commands Redkey Coma Scale Total: 15 Speech: Normal Motor strength normal: LUE, RUE, LLE, RLE Sensory: Normal - Psychological Associated symptoms: Normal affect, Normal mood - Skin Skin Temperature: Warm Skin Moisture: Dry Skin Color: Normal Course - Re-evaluation Re-evalutation: 09/22/18 21:12 Patient was treated with penicillin VK for her dental pain. She was offered 1 Doerun in the emergency room if she can get a ride home but could not drive after given Doerun. Patient decided that she was not to get the Doerun but drive herself home. Patient was discharged home with a prescription for penicillin VK and instructed she needed to follow-up with a dentist for her dental pain as there was no dentist in the emergency room. Presentation is most consistent with likely an infected tooth. Airway is patent. Vitals within normal limits. Patient is able swallow without any difficulty. There is no significant facial swelling. No evidence of Robb angina, apical abscess, or airway obstruction. Patient will be started on antibiotics. I've instructed to follow-up with dentistry as earliest ability for definitive management. At this time will discharge with return precautions and follow-up recommendations. Verbal discharge instructions given a the bedside and opportunity for questions given. Medication warnings reviewed. Patient is in agreement with this plan and has verbalized understanding of return precautions and the need for primary care follow-up in the next 24-72 hours. - Vital Signs Vital signs: Temp Pulse Resp BP Pulse Ox 97.6 F 83 16 131/81 H 100 09/22/18 19:01 09/22/18 19:01 09/22/18 19:01 09/22/18 19:01 09/22/18 19:01 Discharge - Discharge Clinical Impression: Pain due to dental caries Condition: Stable Disposition: HOME, SELF-CARE Additional Instructions: TOOTHACHE: Your pain is due to dental decay. The tooth must be repaired in order for you to feel better. You will, therefore, be referred to a dentist. We do not have dentists on the staff at [facility]. Severe swelling or drainage around a tooth usually means a dental abscess. This also requires evaluation and treatment by the dentist, but antibiotics may be prescribed while awaiting dental treatment. You should be rechecked immediately if you develop major swelling of the face, increasing pain, a lump in the jaw or gums, headache, difficulty swallowing, or fever. ORAL NARCOTIC MEDICATION: You have been given a Doerun for pain control. This medication is a narcotic. It's best taken with food, as nausea can result if taken on an empty stomach. Don't operate machinery or drive within six hours of taking this medication. Do not combine this medicine with alcohol, or with any medication which can cause sedation (such as cold tablets or sleeping pills) unless you get permission from the physician. Narcotics tend to cause constipation. If possible, drink plenty of fluids and eat a diet high in fiber and fruits. Please be aware that prescription narcotics also have the potential for abuse. People become addicted to these medications because of the general sense of wellbeing that they induce. This feeling along with a significant reduction in tension, anxiety, and aggression provides a stimulating seductive quality to these drugs. Once your pain is under control, we encourage you to discard your unused narcotics. PENICILLIN V K: You have been given a prescription for Penicillin VK. Your physician has determined that this is the best antibiotic for your condition. Pen VK can be taken with meals, however more of the antibiotic gets into the bloodstream if it's taken on an empty stomach. Penicillin usually has no side effects. However, allergy to penicillins is common. If you have had an allergic reaction to any drug of the penicillin family, you should never take any other penicillin. Notify your doctor at once if you develop hives, itching, swelling, faintness, or shortness of breath. FOLLOW-UP CARE: You have been referred for follow-up care to the dentists listed below. Call the dentists office for an appointment as you were instructed or within the next two days. If you experience worsening or a significant change in your symptoms, notify the physician immediately or return to the Emergency Department at any time for re-evaluation. [facility] [address] [place], [place] [phone] [facility] [address] [place] [address] [facility] [address] [facility] [address] [facility] [address] [facility] [address] [email or web address] [address] [place] [address] Friday- 8:00am to 5:00 pm Will see [facility] from other [facility] Charges based on income and family size and accepts Medicare, Medicaid, and Insurances Will pull molars [facility] [address] Hours of Operation 8:00 am - 4:30 pm weekdays The following dental offices accept Medicaid: [facility] Dr. Early Dr. Combs Dr. Rae Dr. Danielson Malachi Yarbrough, Carlos Enrique, and Aidan oral surgery Dr. Nieves ([place]) Dr. Aguilera ([place]) [facility] Drs. Neely ([place]) Dr. Ellis ([place]) [facility] Dr. Boggs ([place]) Drs. Murray and ([place]) Medicaid Care Line Prescriptions: Penicillin V Potassium [Penicillin Vk 500 mg Tablet] 500 mg PO BID #20 tablet Forms: Elevated Blood Pressure
== END 2018-09-22 20:21 | disposition home or self-care (01) ==
LOC: ER 18:30
DX: K02.9 Dental caries, unspecified (principal); K08.89 Other specified disorders of teeth and supporting structures; R09.82 Postnasal drip; R05 Cough; J45.909 Unspecified asthma, uncomplicated; Z87.891 Personal history of nicotine dependence
CPT/HCPCS: 99282

== ENCOUNTER 2018-10-03 00:30 | Emergency (ER) | payer SELFPAY ==
[2018-10-03 01:07] VITALS: BP 124/72
--- NOTE | 2018-10-03 01:34 | RADIOLOGY REPORT (SQ) ---
EXAM DESCRIPTION: XR FOOT 3 OR MORE VIEWS COMPLETED DATE/TME: 10/03/2018 01:10 CLINICAL HISTORY: 33 years, Female, injury/pain COMPARISON: 08/20/2018 left foot NUMBER OF VIEWS: 3 TECHNIQUE: 3 views left foot LIMITATIONS: None. FINDINGS: Nondisplaced fracture of the base of the fifth metatarsal with adjacent soft tissue swelling. No other fractures. No dislocation. IMPRESSION: Nondisplaced fracture of the base of the fifth metatarsal copyright 2010 [employer]- All Rights Reserved
[2018-10-03] MEDS ORDERED: HYDROCODONE/ACETAMINOPHEN 5-325 MG TABLET PO ONE (01:35)
--- NOTE | 2018-10-03 01:42 | ER Document Report ---
HPI - HPI Patient complains to provider of: Left foot pain Time Seen by Provider: 10/03/18 01:10 Onset: This evening Onset/Duration: Sudden Quality of pain: Sharp Pain Level: 5 Context: Patient states that she was squatting, hovering over the toilet and as she started to stand up she felt several pops in her left foot and had a sudden onset of pain. Patient complains of difficulty with weightbearing. Patient states that she has had several issues with left foot pain over the past several months but never had any definitive injury. Patient states that she is not followed up with orthopedics in the past for her previous issues with her left foot. Associated Symptoms: Other - Left foot pain Exacerbated by: Standing, Movement, Walking Relieved by: Denies Similar symptoms previously: Yes Recently seen / treated by doctor: No - ROS ROS below otherwise negative: Yes Systems Reviewed and Negative: Yes All other systems reviewed and negative - CONSTITUTIONAL Constitutional: DENIES: Fever - GASTROINTESTINAL Gastrointestinal: DENIES: Nausea - REPRODUCTIVE Reproductive: DENIES: : - MUSCULOSKELETAL Musculoskeletal: REPORTS: Extremity pain, Swelling - DERM Skin Color: Normal Skin Problems: None Past Medical History - General Information source: Patient - Social History Smoking Status: Former Smoker Frequency of alcohol use: None Drug Abuse: None Occupation: Foodservice Family History: Arthritis, CAD, COPD, CVA, DM, Hyperlipidemia, Hypertension, Malignancy Pulmonary Medical History: Reports: Hx Asthma, Hx Pneumonia Neurological Medical History: Reports: Hx Migraine Renal/ Medical History: Denies: Hx Peritoneal Dialysis GI Medical History: Reports: Hx Gastroesophageal Reflux Disease Psychiatric Medical History: Reports: Hx Depression - depression Past Surgical History: Reports: Hx Myringotomy, Hx Tonsillectomy. Denies: Hx Tubal Ligation - Immunizations Immunizations up to date: Yes Hx Diphtheria, Pertussis, Tetanus Vaccination: Yes Vertical Provider Document - CONSTITUTIONAL Agree With Documented VS: Yes Exam Limitations: No Limitations General Appearance: WD/WN, No Apparent Distress - INFECTION CONTROL TRAVEL OUTSIDE OF THE [place].S[place] IN LAST 30 DAYS: No - HEENT HEENT: Atraumatic, Normocephalic - NECK Neck: Normal Inspection - RESPIRATORY Respiratory: No Respiratory Distress - CARDIOVASCULAR Pulses: Normal: Dorsalis pedis - BACK Back: Normal Inspection - MUSCULOSKELETAL/EXTREMETIES Musculoskeletal/Extremeties: MAEW, FROM, Tender - Left foot tenderness over fourth and fifth metatarsals worse over the fifth metatarsal with 1+ edema - NEURO Level of Consciousness: Awake, Alert, Appropriate Motor/Sensory: No Motor Deficit - DERM Integumentary: Warm, Dry, No Rash Course - Re-evaluation Re-evalutation: 10/03/18 01:39 Patient advised of metatarsal fracture and need for follow-up with orthopedics. Patient will be immobilized and good return precautions discussed. - Vital Signs Vital signs: Temp Pulse Resp BP Pulse Ox 98.0 F 91 16 124/72 99 10/03/18 01:03 10/03/18 01:03 10/03/18 01:03 10/03/18 01:03 10/03/18 01:03 - Diagnostic Test Radiology reviewed: Pending, Image reviewed Procedures - Immobilization Left Foot Pre-Proc Neuro Vasc Exam: Normal Immobilizer type: Posterior ankle Performed by: PCT Post-Proc Neuro Vasc Exam: Normal Alignment checked and good: Yes Discharge - Discharge Clinical Impression: Fracture of 5th metatarsal Qualifiers: Encounter type: initial encounter Fracture type: closed Fracture alignment: nondisplaced Laterality: left Qualified Code(s): S92.355A - Nondisplaced fracture of fifth metatarsal bone, left foot, initial encounter for closed fracture Condition: Stable Disposition: HOME, SELF-CARE Instructions: Use of Crutches ([facility]), Foot Fracture ([facility]), Ice & Elevation ([facility]), Oral Narcotic Medication ([facility]), Splint Precautions ([facility]) Additional Instructions: Return immediately for any new or worsening symptoms Followup with your primary care provider, call tomorrow to make a followup appointment Follow-up with orthopedics for further evaluation, call Friday for an appointment Prescriptions: Hydrocodone/Acetaminophen [Shonto 5-325 mg Tablet] 1 tab PO Q6 PRN #15 tablet PRN Reason: Naproxen [Naprosyn 250 Nmg Tablet] 1 tab PO BID #14 tablet Forms: Return to Work Referrals: [facility] ([facility]) [Provider Group] - 10/05/18
== END 2018-10-03 02:13 | disposition home or self-care (01) ==
LOC: ER 00:30
DX: S92.355A Nondisplaced fracture of fifth metatarsal bone, left foot, initial encounter for closed fracture (principal); X58.XXXA Exposure to other specified factors, initial encounter; J45.909 Unspecified asthma, uncomplicated; Z87.891 Personal history of nicotine dependence
CPT/HCPCS: 99283

== ENCOUNTER 2018-12-24 01:15 | Emergency (ER) | payer SELFPAY ==
[2018-12-24] MEDS ORDERED: IPRATROPIUM/ALBUTEROL 0.5-2.5 MG/3 ML AMPUL NEB ONE (04:47)
[2018-12-24] MEDS ORDERED: DEXAMETHASONE SOD PHOS INJ 10 MG/1 ML VIAL IM ONE (04:47)
[2018-12-24] MEDS ORDERED: ALBUTEROL SULFATE HFA (90 MCG/PUFF) 8 GM MDI (1 MDI/ER DISP) IH ONE (04:47)
[2018-12-24] MEDS ORDERED: PREDNISONE 20 MG TABLET PO ONE (04:49)
--- NOTE | 2018-12-24 04:54 | ER Document Report ---
HPI - HPI Patient complains to provider of: asthma exacerbation Time Seen by Provider: 12/24/18 04:05 Pain Level: 1 Context: 33-year-old female with asthma presents to the emergency department for an asthma exacerbation. Her symptoms have been going on since early Friday. She said that she has chest tightness. She does not have a home inhaler or neb. She denies fevers, chills, nausea, vomiting, earache or sore throat, cough, rhinorrhea. No other complaints - CONSTITUTIONAL Constitutional: DENIES: Fever, Chills - EENT EENT: DENIES: Sore Throat, Ear Pain, Eye problems - NEURO Neurology: DENIES: Headache, Weakness, Vision blurred, Dizzinesss / Vertigo - CARDIOVASCULAR Cardiovascular: DENIES: Chest pain - RESPIRATORY Respiratory: REPORTS: Trouble Breathing - asthma, Coughing - GASTROINTESTINAL Gastrointestinal: DENIES: Abdominal Pain, Black / Bloody Stools - URINARY Urinary: DENIES: Dysuria, Urgency, Frequency - REPRODUCTIVE Reproductive: DENIES: : - MUSCULOSKELETAL Musculoskeletal: DENIES: Extremity pain Past Medical History - Social History Smoking Status: Former Smoker Chew tobacco use (# tins/day): No Frequency of alcohol use: None Drug Abuse: None Family History: Arthritis, CAD, COPD, CVA, DM, Hyperlipidemia, Hypertension, Malignancy Patient has suicidal ideation: No Patient has homicidal ideation: No Pulmonary Medical History: Reports: Hx Asthma, Hx Pneumonia Neurological Medical History: Reports: Hx Migraine Renal/ Medical History: Denies: Hx Peritoneal Dialysis GI Medical History: Reports: Hx Gastroesophageal Reflux Disease Psychiatric Medical History: Reports: Hx Depression - depression Past Surgical History: Reports: Hx Myringotomy, Hx Tonsillectomy. Denies: Hx Tubal Ligation - Immunizations Immunizations up to date: Yes Hx Diphtheria, Pertussis, Tetanus Vaccination: Yes Vertical Provider Document - CONSTITUTIONAL Notes: PHYSICAL EXAMINATION: Reviewed vital signs and charting by RN GENERAL: Well-appearing, well-nourished and in no acute distress. HEAD: Atraumatic, normocephalic. ENT: Nares patent bilaterally, oropharynx clear without exudates or palatal petechia. Moist mucous membranes. No tonsil hypertrophy. NECK: Normal range of motion, supple without lymphadenopathy. LUNGS: Inspiratory and expiratory wheezing on the left side and the right upper and middle lobes, mild expiratory wheezing in the right lower lobe HEART: Regular rate and rhythm without murmurs, rubs, or gallops. 2+ peripheral pulses. Normal capillary refill. EXTREMITIES: Normal range of motion, no pitting or edema. No cyanosis. PSYCH: Normal mood, normal affect. No suicidal thoughts/ideations. No homocidal thoughts/ideations. No hallucinations. SKIN: Warm, dry, normal turgor, no rashes or lesions noted. - INFECTION CONTROL TRAVEL OUTSIDE OF THE [place] IN LAST 30 DAYS: No Course - Re-evaluation Re-evalutation: 12/24/18 04:54 Symptoms consistent with a mild asthma exacerbation. We will give her DuoNeb x2. I will send her home with an albuterol inhaler. She has an AeroChamber at her house. I will also give her a 5-day course of burst dose steroids prednisone 60 mg. Vital signs are within normal limits, she is in no respiratory distress, SPO2 99% on room air. She is stable for discharge. - Vital Signs Vital signs: Temp Pulse Resp BP Pulse Ox 98.7 F 88 18 136/65 H 99 12/24/18 01:25 12/24/18 01:25 12/24/18 01:25 12/24/18 01:25 12/24/18 01:25 Discharge - Discharge Clinical Impression: Asthma exacerbation Qualifiers: Asthma severity: mild Asthma persistence: unspecified Qualified Code(s): J45.901 - Unspecified asthma with (acute) exacerbation Condition: Good Disposition: HOME, SELF-CARE Instructions: Inhaled Bronchodilators ([facility]), Asthma ([facility]) Additional Instructions: You were seen for an asthma exacerbation. Your symptoms improved with treatment here in the emergency department. However, it is very important that you return to the emergency department immediately if you began to have worsening difficulty breathing that does not respond to your normal home nebulizers. You are also being sent home on a five-day course of steroids that you should start taking tomorrow. Please also follow closely with your primary care physician. you should also return to emergency department if you develop fever greater than 101, persistent cough, persistent vomiting, pass out, or any other symptoms that are concerning to you.
[2018-12-24 05:23] VITALS: BP 152/80
== END 2018-12-24 05:23 | disposition home or self-care (01) ==
LOC: ER 01:15
DX: J45.901 Unspecified asthma with (acute) exacerbation (principal); R07.89 Other chest pain; Z87.891 Personal history of nicotine dependence; Z87.01 Personal history of pneumonia (recurrent)
CPT/HCPCS: 94640; 99284; J7512; J3490; J7620

== ENCOUNTER 2019-02-10 18:07 | Emergency (ER) | payer SELFPAY ==
[2019-02-10] MEDS ORDERED: IPRATROPIUM/ALBUTEROL 0.5-2.5 MG/3 ML AMPUL NEB ONE (19:11)
--- NOTE | 2019-02-10 19:13 | ER Document Report ---
ED Medical Screen (RME) - General Chief Complaint: Cough Stated Complaint: COUGH,CONGESTION, HEADACHE Time Seen by Provider: 02/10/19 18:54 Mode of Arrival: Ambulatory Information source: Patient Notes: Patient presents complaining of occasionally productive cough for the past 5 days. Patient has a history of asthma and has used up her inhaler finishing it today. Patient denies any improvement with use of inhaler. Patient states she had a leftover prescription that she got filled for prednisone and started that today. Patient denies any fever. Patient reports shortness of breath that is worse with exertion. I have greeted and performed a rapid initial assessment of this patient. A comprehensive ED assessment and evaluation of the patient, analysis of test results and completion of the medical decision making process will be conducted by additional ED providers. TRAVEL OUTSIDE OF THE [place] IN LAST 30 DAYS: No - Related Data Allergies/Adverse Reactions: No Known Allergies Allergy (Verified 02/10/19 18:10) Past Medical History - Social History Family history: None Pulmonary Medical History: Reports: Hx Asthma, Hx Pneumonia Neurological Medical History: Reports: Hx Migraine Renal/ Medical History: Denies: Hx Peritoneal Dialysis GI Medical History: Reports: Hx Gastroesophageal Reflux Disease Psychiatric Medical History: Reports: Hx Depression - depression Past Surgical History: Reports: Hx Myringotomy, Hx Tonsillectomy. Denies: Hx Tubal Ligation - Immunizations Immunizations up to date: Yes Hx Diphtheria, Pertussis, Tetanus Vaccination: Yes Physical Exam - Vital signs Vitals: Temp Pulse Resp BP Pulse Ox 97.9 F 99 18 129/85 H 93 02/10/19 18:14 02/10/19 18:14 02/10/19 18:14 02/10/19 18:14 02/10/19 18:14 - General Notes: Patient markedly pale, diffusely wheezing Course - Vital Signs Vital signs: Temp Pulse Resp BP Pulse Ox 97.9 F 99 18 129/85 H 93 02/10/19 18:14 02/10/19 18:14 02/10/19 18:14 02/10/19 18:14 02/10/19 18:14
--- NOTE | 2019-02-10 19:18 | ER Document Report ---
HPI - HPI Time Seen by Provider: 02/10/19 18:54 Pain Level: 2 Notes: Patient is a 33-year-old female with a history of asthma who presents complaining of asthma exacerbation that began 3 days ago. Patient states that she ran out of her asthma medications which is why she believes her symptoms are still ongoing. She did fill a prescription today for prednisone and took 60 mg. She is otherwise eating and drinking without difficulty. She is urinating normally and having normal bowel movements. Denies drug allergies. Patient states that she is able to ambulate with any dyspnea on exertion or worsening symptoms. She does have occasional dry cough as well. Denies any headache, fever, URI, sore throat, chest pain, palpitations, syncope, abdominal pain, nausea/vomiting/diarrhea, urinary retention, dysuria, hematuria, or rash. - ROS Systems Reviewed and Negative: Yes All other systems reviewed and negative - REPRODUCTIVE Reproductive: DENIES: : - DERM Skin Color: Normal Past Medical History - General Information source: Patient - Social History Smoking Status: Former Smoker Family History: Arthritis, CAD, COPD, CVA, DM, Hyperlipidemia, Hypertension, Malignancy Patient has suicidal ideation: No Patient has homicidal ideation: No Pulmonary Medical History: Reports: Hx Asthma, Hx Pneumonia Neurological Medical History: Reports: Hx Migraine Renal/ Medical History: Denies: Hx Peritoneal Dialysis GI Medical History: Reports: Hx Gastroesophageal Reflux Disease Psychiatric Medical History: Reports: Hx Depression - depression Past Surgical History: Reports: Hx Myringotomy, Hx Tonsillectomy. Denies: Hx Tubal Ligation - Immunizations Immunizations up to date: Yes Hx Diphtheria, Pertussis, Tetanus Vaccination: Yes Vertical Provider Document - CONSTITUTIONAL Agree With Documented VS: Yes Notes: PHYSICAL EXAMINATION: GENERAL: Well-appearing, well-nourished and in no acute distress. HEAD: Atraumatic, normocephalic. EYES: Pupils equal round and reactive to light, extraocular movements intact, sclera anicteric, conjunctiva are normal. ENT: Nares patent and without discharge. oropharynx clear without exudates. No tonsilar hypertrophy or erythema. Moist mucous membranes. NECK: Normal range of motion, supple without lymphadenopathy LUNGS: wheezing b/l. no retractions or crackles. HEART: Regular rate and rhythm without murmurs, rubs, gallops. Musculoskeletal: FROM to passive/active. Strength 5+/5. Theron neg. No asymmetry to LE's. Extremities: No cyanosis, clubbing, or edema b/l. Peripheral pulses 2+. Capillary refill less than 3 seconds. NEUROLOGICAL: Normal speech, normal gait. PSYCH: Normal mood, normal affect. SKIN: Warm, Dry, normal turgor, no rashes or lesions noted. - INFECTION CONTROL TRAVEL OUTSIDE OF THE [place] IN LAST 30 DAYS: No Course - Re-evaluation Re-evalutation: 02/10/19 20:21 Patient is an afebrile, well-hydrated, 33-year-old female who presents with left lower lobe pneumonia and asthma exacerbation. Vitals are acceptable without significant tachycardia, tachypnea, or hypoxia. PE is otherwise unremarkable. Patient is nontoxic-appearing and is tolerating p.o. without difficulty. Lung sounds improved after 2 breathing treatments. Patient took 60 mg of prednisone today as well. See chest x-ray result. See lab results. No further work-up warranted at this time. Low suspicion for any sepsis, meningitis, severe dehydration, respiratory compromise, PE, pneumothorax, or other systemic emergent condition at this time. Patient is aware that condition can change from initial presentation and she needs to monitor symptoms closely and seek medical attention with any acute changes. I will send her home with a prescription for Levaquin and breathing treatment medications. She has steroids for home. Recheck with your PCM in 2 to 3 days. Return to the ED with any other worsening/concerning symptoms. Patient is in agreement. - Vital Signs Vital signs: Temp Pulse Resp BP Pulse Ox 97.9 F 99 18 129/85 H 93 02/10/19 18:14 02/10/19 18:14 02/10/19 18:14 02/10/19 18:14 02/10/19 18:14 - Laboratory Result Diagrams: 02/10/19 19:45 02/10/19 19:45 Discharge - Discharge Clinical Impression: Left lower lobe pneumonia Qualifiers: Pneumonia type: due to unspecified organism Qualified Code(s): J18.1 - Lobar pneumonia, unspecified organism Asthma exacerbation Qualifiers: Asthma severity: mild Asthma persistence: intermittent Qualified Code(s): J45.21 - Mild intermittent asthma with (acute) exacerbation Condition: Stable Disposition: HOME, SELF-CARE Instructions: Levofloxacin Additional Instructions: Maintain adequate fluid intake tylenol/ibuprofen as needed alternating every 3 hours for fever/body ache over the counter cold medication as needed for symptoms Humidified air may help Wash your hands regularly Wear a mask when coughing F/u: with your PCM in 2-3 days for a recheck Return to the ED with any fever, altered mental status/behavior, chest pain, palpitations, syncope, headache, neck pain/stiffness, shortness of breath, chest pains, wheezing, drooling, trouble swallowing/breathing, abdominal pain, n/v/d, rash, or worsening/concerning symptoms otherwise. Prescriptions: Albuterol Sulfate [Ventolin 0.083% Neb 2.5 mg/3 mL Ampul] 2.5 mg NEB QID PRN 30 Days #30 unit PRN Reason: Albuterol Sulfate [Proair HFA Inhalation Aerosol 8.5 gm MDI] 2 puff IH Q4H PRN #1 mdi PRN Reason: Levofloxacin [Levaquin 500 mg Tablet] 500 mg PO DAILY #7 tablet Forms: Elevated Blood Pressure, Return to Work Referrals: [facility] [Provider Group] - Follow up as needed
--- NOTE | 2019-02-10 19:45 | RADIOLOGY REPORT (SQ) ---
EXAM DESCRIPTION: CHEST 2 VIEWS COMPLETED DATE/TIME: 02/10/2019 7:31 pm REASON FOR STUDY: sob COMPARISON: 06/09/2018 TECHNIQUE: Frontal and lateral radiographic views of the chest acquired. NUMBER OF VIEWS: Two view. LIMITATIONS: None. FINDINGS: LUNGS AND PLEURA: No pneumothorax. Small area of airspace disease -subsegmental atelectas is in the left lower lobe. No pleural effusion. MEDIASTINUM AND HILAR STRUCTURES: Stable. HEART AND VASCULAR STRUCTURES: Stable. BONES: No acute findings. HARDWARE: None in the chest. OTHER: No other significant finding. IMPRESSION: Small area of airspace disease -subsegmental atelectasis in the left lower lobe. No ple ural effusion. TECHNICAL DOCUMENTATION: JOB ID: [id number] [place]-72 2010 [employer]- All Rights Reserved Reading location - IP/workstation name: [email or web address]
[2019-02-10 19:57] LABS: HEMATOCRIT 37.7 % (36.0-47.0); MEAN CORPUSCULAR HEMOGLOBIN 24.8 pg (27.0-33.4); MEAN CORPUSCULAR HGB CONC 31.9 g/dL (32.0-36.0); MEAN CORPUSCULAR VOLUME 78 fl (80-97); PLATELET COUNT 400 10^3/uL (150-450); RED BLOOD COUNT 4.85 10^6/uL (3.72-5.28); WHITE BLOOD COUNT 15.6 10^3/uL (4.0-10.5)
[2019-02-10 20:14] LABS: ABSOLUTE LYMPHOCYTES# (MANUAL) 0.6 10^3/uL (0.5-4.7); BASOPHILS % (MANUAL) 0 % (0-2); EOSINOPHILS % (MANUAL) 0 % (0-6); LYMPHOCYTES % (MANUAL) 4 % (13-45); MONOCYTES % (MANUAL) 0 % (3-13); SEGMENTED NEUTROPHILS % (MAN) 96 % (42-78); TOTAL CELLS COUNTED 100
[2019-02-10 20:15] LABS: ANION GAP 12 (5-19); ANISOCYTOSIS 1+; BLOOD UREA NITROGEN 15 mg/dL (7-20); CALCIUM 9.5 mg/dL (8.4-10.2); CARBON DIOXIDE 23 mmol/L (22-30); CHLORIDE 104 mmol/L (98-107); GLUCOSE 114 mg/dL (75-110); HYPOCHROMASIA SLIGHT; PLATELET COMMENT ADEQUATE; POLYCHROMASIA SLIGHT; POTASSIUM 4.6 mmol/L (3.6-5.0); SODIUM 138.5 mmol/L (137-145); TOXIC GRANULATION 1+
[2019-02-10 20:47] VITALS: BP 118/61
== END 2019-02-10 20:47 | disposition home or self-care (01) ==
LOC: ER 18:07
DX: J18.1 Lobar pneumonia, unspecified organism (principal); J45.21 Mild intermittent asthma with (acute) exacerbation; Z87.891 Personal history of nicotine dependence; Z79.899 Other long term (current) drug therapy
CPT/HCPCS: 94640; 99283; 36415; 84703; 85025; 80048; 71046; J7620

== ENCOUNTER 2019-04-18 16:35 | Emergency (ER) | payer SELFPAY ==
[2019-04-18] MEDS ORDERED: IPRATROPIUM/ALBUTEROL 0.5-2.5 MG/3 ML AMPUL NEB ONE (17:43)
[2019-04-18] MEDS ORDERED: NORMAL SALINE 1000 ML 1,000 ML IV ONE (17:43)
[2019-04-18] MEDS ORDERED: PREDNISONE 20 MG TABLET PO ONE (17:43)
[2019-04-18] MEDS ORDERED: AZITHROMYCIN 250 MG TABLET PO ONE (17:44)
--- NOTE | 2019-04-18 18:15 | ER Document Report ---
Entered by ALEXX MONROY SCRIBE 04/18/19 1800 Acting as scribe for:ALEXIS YUAN MD ED Respiratory Problem - General Chief Complaint: Cough Stated Complaint: COUGH,CONGESTION,BODY ACHES Time Seen by Provider: 04/18/19 17:36 Mode of Arrival: Ambulatory Information source: Patient Notes: Patient is a 34-year-old female who presents to the emergency department today with complaints of a 2-day history of shortness of breath with associated wheezing. Patient states she has had a productive cough with yellow sputum as well. Patient states she has used "about 100 puffs of her inhaler the last 2 days" and she now has no puffs left. Patient states she has had chills but denies any fevers. TRAVEL OUTSIDE OF THE [place] IN LAST 30 DAYS: No - Related Data Allergies/Adverse Reactions: No Known Allergies Allergy (Verified 04/18/19 16:37) Past Medical History - General Information source: Patient - Social History Smoking Status: Former Smoker - quit 1.5 years ago Cigarette use (# per day): No Frequency of alcohol use: None Drug Abuse: None Occupation: Group Activities Aide at [employer] Lives with: Family Family History: Reviewed & Not Pertinent, Arthritis, CAD, COPD, CVA, DM, Hyperlipidemia, Hypertension, Malignancy Pulmonary Medical History: Reports: Hx Asthma, Hx Pneumonia Neurological Medical History: Reports: Hx Migraine GI Medical History: Reports: Hx Gastroesophageal Reflux Disease Musculoskeletal Medical History: Reports Hx Musculoskeletal Trauma Psychiatric Medical History: Reports: Hx Depression - depression Traumatic Medical History: Reports: Hx Fractures - foot left Past Surgical History: Reports: Hx Adenoidectomy, Hx Myringotomy, Hx Tons illectomy - Immunizations Immunizations up to date: Yes Hx Diphtheria, Pertussis, Tetanus Vaccination: Yes Review of Systems - Review of Systems Constitutional: See HPI, Chills. denies: Fever EENT: No symptoms reported Cardiovascular: No symptoms reported Respiratory: See HPI, Cough, Hurts to breathe, Short of breath, Sputum, Wheezing Gastrointestinal: No symptoms reported Genitourinary: No symptoms reported Female Genitourinary: No symptoms reported Musculoskeletal: No symptoms reported Skin: No symptoms reported Hematologic/Lymphatic: No symptoms reported Neurological/Psychological: No symptoms reported -: Yes All other systems reviewed and negative Physical Exam - Vital signs Vitals: Temp Pulse Resp BP Pulse Ox 97.7 F 92 16 154/83 H 98 04/18/19 16:41 04/18/19 16:41 04/18/19 16:41 04/18/19 16:41 04/18/19 16:41 - Notes Notes: Physical Exam: General: Alert, appears well. HEENT: Normocephalic. Atraumatic. PERRL. Extraocular movements intact. Oropharynx clear. Nasal congestion. Neck: Supple. Non-tender. Respiratory: No respiratory distress. Tight inspiratory and expiratory wheezing bilaterally. Cardiovascular: Regular rate and rhythm. Abdominal: Normal Inspection. Non-tender. No distension. Normal Bowel Sounds. Back: No gross abnormalities. Extremities: Moves all four extremities. Upper extremities: Normal inspection. Normal ROM. Lower extremities: Normal inspection. No edema. Normal ROM. Neurological: Normal cognition. AAOx4. Normal speech. Psychological: Normal affect. Normal Mood. Skin: Warm. Dry. Normal color. Course - Re-evaluation Re-evalutation: 04/18/19 21:00 At this time the patient's wheezes are mostly clear. She does have rhonchi and congested cough consistent with bronchitis, but the wheezes are mostly gone. She complains of pain in her chest when she breathes and coughs. - Vital Signs Vital signs: Temp Pulse Resp BP Pulse Ox 98.5 F 66 20 122/71 96 04/18/19 19:42 04/18/19 20:33 04/18/19 20:33 04/18/19 19:42 04/18/19 19:42 Discharge - Discharge Clinical Impression: Asthmatic bronchitis with acute exacerbation Qualifiers: Asthma severity: moderate Asthma persistence: persistent Qualified Code(s): J45.41 - Moderate persistent asthma with (acute) exacerbation Condition: Stable Disposition: HOME, SELF-CARE Additional Instructions: Bronchitis with Bronchospasm (Wheezing); You have bronchitis with bronchospasm (wheezing). Sometimes people develop wheezing with a chest cold. This occurs either because of an underlying tendency toward asthma or because the virus itself irritates the bronchial tubes. This irritation causes cough, shortness of breath, and wheezing. Emergency treatment of bronchospasm may include adrenaline shots or bronchodilator aerosol. You may feel lightheaded and have a rapid pulse for an hour or two. Rest and get plenty of fluids. At home, we'll treat you with a bronchodilator inhaler. Corticosteroids may be required for some patients. Until you recover, avoid chemical fumes, dusts, pollens, and exercising in very cold or dry air. If you smoke, stop now! Most cases of bronchitis get better without antibiotics. We prescribe antibiotics when we believe bacteria are damaging your airways, or if there's high risk the bronchitis will worsen into pneumonia. Increase your fluid intake. A cool mist humidifier may make your lungs more comfortable. An expectorant (cough medicine that loosens phlegm) can help. Repeated episodes of bronchitis and bronchospasm may result in lung damage -- for example, chronic bronchitis, recurrent pneumonias, or emphysema. If you develop a fever, increased wheezing, chest pain, or severe shortness of breath, you should contact the doctor immediately. Take the medications as prescribed. Start the prednisone in the Zithromax tomorrow. Drink plenty of fluids and get plenty of rest. Take Tylenol and ibuprofen for pain and fever as needed. Follow-up with a local medical doctor if not improving. RETURN TO THE EMERGENCY ROOM IF ANY NEW OR WORSENING SYMPTOMS. Prescriptions: Prednisone [Deltasone 10 mg Tablet] 10 mg PO ASDIR PRN #21 tablet PRN Reason: Albuterol Sulfate [Proair Hfa Inhalation Aerosol 8.5 gm Mdi] 2 puff IH ASDIR PRN #1 mdi PRN Reason: Azithromycin [Zithromax 250 mg Tablet] 250 mg PO DAILY #4 tablet Scribe Attestation: 04/18/19 18:17 I personally performed the services described in the documentation, reviewed and edited the documentation which was dictated to the scribe in my presence, and it accurately records my words and actions. I personally performed the services described in the documentation, reviewed and edited the documentation which was dictated to the scribe in my presence, and it accurately records my words and actions.
[2019-04-18] MEDS ORDERED: ALBUTEROL SULFATE 0.083% NEB 2.5 MG/3 ML AMPUL NEB ONE ×2 (18:48→20:25)
[2019-04-18] MEDS: MAGNESIUM SULFATE/D5W 1 GM/100 ML RTUPB IV SCH (19:50)
[2019-04-18] MEDS ORDERED: KETOROLAC TROMETHAMINE INJ/PF 30 MG/1 ML SDV IV ONE (20:25)
[2019-04-18] MEDS ORDERED: ALBUTEROL SULFATE HFA (90 MCG/PUFF) 8 GM MDI (1 MDI/ER DISP) IH ONE (21:04)
[2019-04-18 21:30] VITALS: BP 127/63
== END 2019-04-18 21:33 | disposition home or self-care (01) ==
LOC: ER 16:35
DX: J45.41 Moderate persistent asthma with (acute) exacerbation (principal); R05 Cough; R09.81 Nasal congestion; M79.10 Myalgia, unspecified site; R06.02 Shortness of breath; Z87.891 Personal history of nicotine dependence
CPT/HCPCS: J1885; J3475; J7512; J7030; J3490; J7620; 94640; 96361; 96365; 96375; 99284

== ENCOUNTER 2019-06-24 23:43 | Emergency (ER) | payer SELFPAY ==
[2019-06-25] MEDS ORDERED: PREDNISONE 20 MG TABLET PO ONE (01:07)
[2019-06-25] MEDS ORDERED: IPRATROPIUM/ALBUTEROL 0.5-2.5 MG/3 ML AMPUL NEB ONE (01:07)
--- NOTE | 2019-06-25 01:11 | ER Document Report ---
ED Medical Screen (RME) - General Chief Complaint: Breathing Difficulty Stated Complaint: TROUBLE BREATHING,SINUS PRESSURE Time Seen by Provider: 06/25/19 01:06 Notes: URI x 1 month, took last alb tx @ 1700 for SOB. Subj fever and "bad cough" started three days ago. Ran out of albuterol. GENERAL: Alert, interacts well. No acute distress. ENT: Oral mucosa moist, tongue midline. Swollen turbinates noted bilaterally. LUNGS: End expiratory wheeze bilateral lower bases to auscultation, no discernible rales, or rhonchi. No respiratory distress. I have greeted and performed a rapid initial assessment of this patient. A comprehensive ED assessment and evaluation of the patient, analysis of test results and completion of the medical decision making process will be conducted by additional ED providers. I have specifically instructed the patient or family members with the patient to immediately return to any nursing staff should anything change in the patient's condition or with their chief complaint. This medical record was dictated with voice recognizing software. There may be grammatical, syntax errors that are unintended. TRAVEL OUTSIDE OF THE [place] IN LAST 30 DAYS: No - Related Data Allergies/Adverse Reactions: No Known Allergies Allergy (Verified 04/18/19 16:37) Past Medical History - Social History Family history: None Pulmonary Medical History: Reports: Hx Asthma, Hx Pneumonia Neurological Medical History: Reports: Hx Migraine Renal/ Medical History: Denies: Hx Peritoneal Dialysis GI Medical History: Reports: Hx Gastroesophageal Reflux Disease Musculoskeltal Medical History: Reports Hx Musculoskeletal Trauma Psychiatric Medical History: Reports: Hx Depression - depression Traumatic Medical History: Reports: Hx Fractures - foot left Past Surgical History: Reports: Hx Adenoidectomy, Hx Myringotomy, Hx Tonsillectomy - Immunizations Immunizations up to date: Yes Hx Diphtheria, Pertussis, Tetanus Vaccination: Yes Physical Exam - Vital signs Vitals: Temp Pulse Resp BP Pulse Ox 97.9 F 88 22 H 154/83 H 99 06/25/19 00:46 06/25/19 00:46 06/25/19 00:46 06/25/19 00:46 06/25/19 00:46 Course - Vital Signs Vital signs: Temp Pulse Resp BP Pulse Ox 97.9 F 88 22 H 154/83 H 99 06/25/19 00:46 06/25/19 00:46 06/25/19 00:46 06/25/19 00:46 06/25/19 00:46
--- NOTE | 2019-06-25 02:22 | RADIOLOGY REPORT (SQ) ---
CLINICAL HISTORY: SOB COMPARISON: None. 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 Lungs are clear without consolidation, atelectasis, mass or edema. There is no pleural effusion. There is no pneumothorax. There are no acute osseous findings. IMPRESSION: Clear lungs.
[2019-06-25] MEDS ORDERED: ALBUTEROL SULFATE HFA (90 MCG/PUFF) 8 GM MDI (1 MDI/ER DISP) IH ONE (03:38)
--- NOTE | 2019-06-25 03:38 | ER Document Report ---
ED Respiratory Problem - General Chief Complaint: Shortness Of Breath Stated Complaint: TROUBLE BREATHING,SINUS PRESSURE Time Seen by Provider: 06/25/19 01:06 Notes: RME NOTE: URI x 1 month, took last alb tx @ 1700 for SOB. Subj fever and "bad cough" started three days ago. Ran out of albuterol. GENERAL: Alert, interacts well. No acute distress. ENT: Oral mucosa moist, tongue midline. Swollen turbinates noted bilaterally. LUNGS: End expiratory wheeze bilateral lower bases to auscultation, no discernible rales, or rhonchi. No respiratory distress. MY HPI: Patient is denying any chest pain. States intermittently she does have a hard time taking a deep breath. Patient says she does need a refill on her albuterol. admits to h/o asthma. TRAVEL OUTSIDE OF THE [place] IN LAST 30 DAYS: No - Related Data Allergies/Adverse Reactions: No Known Allergies Allergy (Verified 04/18/19 16:37) Home Medications: zyrtec daily Past Medical History - General Information source: Patient - Social History Smoking Status: Former Smoker Family History: Reviewed & Not Pertinent, Arthritis, CAD, COPD, CVA, DM, Hyperlipidemia, Hypertension, Malignancy Patient has suicidal ideation: No Patient has homicidal ideation: No Pulmonary Medical History: Reports: Hx Asthma, Hx Pneumonia Neurological Medical History: Reports: Hx Migraine Renal/ Medical History: Denies: Hx Peritoneal Dialysis GI Medical History: Reports: Hx Gastroesophageal Reflux Disease Musculoskeletal Medical History: Reports Hx Musculoskeletal Trauma Psychiatric Medical History: Reports: Hx Depression - depression Traumatic Medical History: Reports: Hx Fractures - foot left Past Surgical History: Reports: Hx Adenoidectomy, Hx Myringotomy, Hx Tonsillectomy - Immunizations Immunizations up to date: Yes Hx Diphtheria, Pertussis, Tetanus Vaccination: Yes Review of Systems - Review of Systems Constitutional: Fever EENT: See HPI Cardiovascular: See HPI Respiratory: See HPI Gastrointestinal: denies: Abdominal pain, Diarrhea, Vomiting Genitourinary: denies: Dysuria Female Genitourinary: No symptoms reported Musculoskeletal: No symptoms reported Skin: No symptoms reported Hematologic/Lymphatic: No symptoms reported Neurological/Psychological: No symptoms reported Physical Exam - Vital signs Vitals: Temp Pulse Resp BP Pulse Ox 97.9 F 88 22 H 154/83 H 99 06/25/19 00:46 06/25/19 00:46 06/25/19 00:46 06/25/19 00:46 06/25/19 00:46 - Notes Notes: GENERAL: Alert, interacts well. No acute distress. HEAD: Normocephalic, atraumatic. EYES: Pupils equal, round, and reactive to light. Extraocular movements intact. ENT: Oral mucosa moist, tongue midline. Nares patent, swollen turbinates noted bilaterally, TM's intact, nonerythematous, nonbulging bilaterally. NECK: Full range of motion. Supple. Trachea midline. No lymphadenopathy appreciated LUNGS: Clear to auscultation bilaterally, no wheezes, rales, or rhonchi. No respiratory distress. HEART: Regular rate and rhythm. No murmur ABDOMEN: Soft, non-tender. Non-distended. Bowel sounds present in all 4 quadrants. EXTREMITIES: Moves all 4 extremities spontaneously. No edema, normal radial and dorsalis pedis pulses bilaterally. No cyanosis. BACK: no cervical, thoracic, lumbar midline tenderness. No saddle anesthesia, normal distal neurovascular exam. NEUROLOGICAL: Alert and oriented x3. Normal speech. cranial nerves II through XII grossly intact. PSYCH: Normal affect, normal mood. SKIN: Warm, dry, normal turgor. No rashes or lesions noted. Course - Re-evaluation Re-evalutation: Chest X-Ray 06/25/19 01:08 IMPRESSION: Clear lungs. Initial physical exam performed by myself did show an end expiratory wheeze in bilateral bases. Patient was given 1 DuoNeb treatment and reassessment had clear lung sounds in all beasley. Patient has no frontal sinus tenderness or fever in the emergency department. Discussed the continued use of albuterol and steroids as prescribed. Please also discussed [id number] Nasonex or Flonase for generalized nasal congestion and swollen turbinates bilaterally. Discussed close follow-up with primary care provider, patient stable for discharge. Discussed close return precautions. - Vital Signs Vital signs: Temp Pulse Resp BP Pulse Ox 97.9 F 88 22 H 154/83 H 99 06/25/19 00:46 06/25/19 00:46 06/25/19 00:46 06/25/19 00:46 06/25/19 00:46 Discharge - Discharge Clinical Impression: Upper respiratory infection Qualifiers: URI type: unspecified viral URI Qualified Code(s): J06.9 - Acute upper respiratory infection, unspecified Asthma Qualifiers: Asthma severity: mild Asthma persistence: unspecified Asthma complication type: with acute exacerbation Qualified Code(s): J45.901 - Unspecified asthma with (acute) exacerbation Condition: Stable Disposition: HOME, SELF-CARE Instructions: Asthma ([facility]), Upper Respiratory Illness ([facility]), Viral Syndrome ([facility]) Additional Instructions: As we discussed you have been seen and treated in the emergency department for an upper respiratory infection. Your chest x-ray reveals no signs of pneumonia. Patient your examination I do feel that he should use your albuterol treatments every 4 hours for the next 3 days. Please also take steroids as prescribed. Please follow-up with your primary care provider in the next 12 to 24 hours. Return to the emergency department for any concerns. Prescriptions: Prednisone [Deltasone 20 mg Tablet] 3 tab PO DAILY 5 Days tablet Albuterol Sulfate [Proair HFA Inhalation Aerosol 8.5 gm MDI] 2 puff IH Q4H PRN #1 mdi PRN Reason: Albuterol Sulfate [Ventolin 0.083% Neb 2.5 mg/3 mL Ampul] 1 vial NEB Q4 #60 vial Forms: Return to Work
[2019-06-25 06:20] VITALS: BP 142/78
== END 2019-06-25 03:45 | disposition home or self-care (01) ==
LOC: ER 23:43
DX: J45.901 Unspecified asthma with (acute) exacerbation (principal); J06.9 Acute upper respiratory infection, unspecified; B97.89 Other viral agents as the cause of diseases classified elsewhere; Z79.899 Other long term (current) drug therapy; Z87.891 Personal history of nicotine dependence; Z87.01 Personal history of pneumonia (recurrent)
CPT/HCPCS: 71046; J3490; J7512; J7620

== ENCOUNTER 2020-01-02 04:47 | Emergency (ER) | payer SELFPAY ==
[2020-01-02] MEDS ORDERED: IPRATROPIUM/ALBUTEROL 0.5-2.5 MG/3 ML AMPUL NEB ONE ×2 (05:05→06:18)
[2020-01-02] MEDS ORDERED: NORMAL SALINE 1000 ML 1,000 ML IV ONE (05:06)
[2020-01-02] MEDS ORDERED: METHYLPREDNISOLONE INJ 125 MG/2 ML SDV IV ONE (05:15)
[2020-01-02 05:54] LABS: ABSOLUTE EOSINOPHILS # (AUTO) 0.3 10^3/uL (0.0-0.6); ABSOLUTE MONOCYTES (AUTO) 0.5 10^3/uL (0.1-1.4); ABSOLUTE NEUT (AUTO) 6.2 10^3/uL (1.7-8.2); BASOPHILS % (AUTO) 0.4 % (0-2); EOSINOPHILS % (AUTO) 4.1 % (0-6); HEMATOCRIT 35.8 % (36.0-47.0); HEMOGLOBIN 12.3 g/dL (12.0-15.5); LYMPHOCYTES % (AUTO) 12.3 % (13-45); MEAN CORPUSCULAR HEMOGLOBIN 26.7 pg (27.0-33.4); MEAN CORPUSCULAR HGB CONC 34.3 g/dL (32.0-36.0); MEAN CORPUSCULAR VOLUME 78 fl (80-97); MONOCYTES % (AUTO) 5.7 % (3-13); PLATELET COUNT 328 10^3/uL (150-450); RED BLOOD COUNT 4.61 10^6/uL (3.72-5.28); RED CELL DISTRIBUTION WIDTH 16.7 % (11.5-14.0); SEGMENTED NEUTROPHILS % (AUTO) 77.5 % (42-78); TOTAL CELLS COUNTED % (AUTO) 100 %
--- NOTE | 2020-01-02 05:58 | RADIOLOGY REPORT (SQ) ---
EXAM DESCRIPTION: XR CHEST 1 VIEW COMPLETED DATE/TME: 01/02/2020 05:04 CLINICAL HISTORY: 34 years Female, cough/fever COMPARISON:Jun 25 2019 NUMBER OF VIEWS/TECHNIQUE: 1/AP FINDINGS: Adequate lung volume, clear parenchyma, normal cardiac silhouette, and intact bony thorax. IMPRESSION: No acute cardiopulmonary findings.
--- NOTE | 2020-01-02 06:03 | ER Document Report ---
ED General - General Chief Complaint: Flu Symptoms Stated Complaint: FEVER Time Seen by Provider: 01/02/20 04:54 Mode of Arrival: Ambulatory Information source: Patient Notes: 34-year-old female with history of asthma and pneumonia presenting to the emergency department with chief complaint of productive cough that began 5 days ago and fever that began 2 days ago. Patient reports T-max 101. She denies any sick contacts, denies any recent travel or exposure to known COVID-19 positive patients. She states she is taking multiple [id number] medications without relief. She denies any chest pain, nausea, vomiting or diarrhea. TRAVEL OUTSIDE OF THE [place] IN LAST 30 DAYS: No - Related Data Allergies/Adverse Reactions: No Known Allergies Allergy (Verified 10/11/19 15:09) Past Medical History - General Information source: Patient - Social History Smoking Status: Former Smoker Frequency of alcohol use: None Drug Abuse: None Family History: Arthritis, Malignancy, CAD, COPD, CVA, DM, Hyperlipidemia, Hypertension, Reviewed & Not Pertinent Patient has homicidal ideation: No Pulmonary Medical History: Reports: Hx Asthma, Hx Pneumonia Neurological Medical History: Reports: Hx Migraine Renal/ Medical History: Denies: Hx Peritoneal Dialysis GI Medical History: Reports: Hx Gastroesophageal Reflux Disease Musculoskeletal Medical History: Reports Hx Musculoskeletal Trauma Psychiatric Medical History: Reports: Hx Depression - depression Traumatic Medical History: Reports: Hx Fractures - foot left Past Surgical History: Reports: Hx Adenoidectomy, Hx Myringotomy, Hx Tonsillectomy - Immunizations Immunizations up to date: Yes Hx Diphtheria, Pertussis, Tetanus Vaccination: Yes Review of Systems - Review of Systems Constitutional: Chills, Fever EENT: Sinus pressure Respiratory: Cough - Productive, Short of breath, Wheezing -: Yes All other systems reviewed and negative Physical Exam - Vital signs Vitals: Temp Pulse Resp BP Pulse Ox 100.8 F H 118 H 20 119/68 96 01/02/20 04:47 01/02/20 04:47 01/02/20 04:47 01/02/20 04:47 01/02/20 04:47 - Notes Notes: PHYSICAL EXAMINATION: GENERAL: Well-appearing, well-nourished and in no acute distress. HEAD: Atraumatic, normocephalic. EYES: Pupils equal round and reactive to light, extraocular movements intact, conjunctiva are normal. ENT: Nares patent, oropharynx clear without exudates. No tonsillar swelling, uvula midline. Moist mucous membranes. Tenderness to palpation over the maxillary and frontal sinuses. NECK: Normal range of motion, supple without lymphadenopathy LUNGS: Expiratory wheezes noted bilaterally, normal work of breathing. HEART: Regular rate and rhythm without murmurs ABDOMEN: Soft, nontender, nondistended abdomen. No guarding, no rebound. No masses appreciated. Female : deferred Musculoskeletal: Normal range of motion, no pitting or edema. No cyanosis. NEUROLOGICAL: Cranial nerves grossly intact. Normal speech, normal gait. Normal sensory, motor exams PSYCH: Normal mood, normal affect. SKIN: Warm, Dry, normal turgor, no rashes or lesions noted. Course - Re-evaluation Re-evalutation: 01/02/20 06:26 Patient appears well, nontoxic. She has received breathing treatments, IV Solu- Medrol and IV fluids here in the emergency department. She feels much improved. Rapid strep, influenza negative. Labs reassuring. Patient will be tested for COVID-19 with plan to discharge home. - Vital Signs Vital signs: Temp Pulse Resp BP Pulse Ox 100.8 F H 118 H 20 119/68 96 01/02/20 04:54 01/02/20 04:47 01/02/20 04:47 01/02/20 04:47 01/02/20 04:47 - Laboratory Result Diagrams: 01/02/20 05:27 01/02/20 05:27 Laboratory results interpreted by me: 01/02/20 01/02/20 05:27 05:27 Hct 35.8 L MCV 78 L MCH 26.7 L RDW 16.7 H Lymph % (Auto) 12.3 L Sodium 133.7 L Discharge - Discharge Clinical Impression: Encounter for laboratory testing for COVID-19 virus, Respiratory infection Exacerbation of asthma Qualifiers: Asthma severity: moderate Asthma persistence: unspecified Qualified Code(s): J45.901 - Unspecified asthma with (acute) exacerbation Fever Qualifiers: Fever type: unspecified Qualified Code(s): R50.9 - Fever, unspecified Condition: Stable Disposition: HOME, SELF-CARE Additional Instructions: Today your chest x-ray did not show any signs of pneumonia. Your flu swabs were negative. Please take medications as prescribed. Push fluids. You were tested for coronavirus (COVID 19) these results typically take 2 days to come back. Please stay in your house until they are resulted back or until you have been completely symptom-free for at least 3 days. Prescriptions: Amoxicillin 1 tab PO TID #30 tab Prednisone [Deltasone 20 mg Tablet] 3 tab PO DAILY 5 Days #15 tablet Forms: Return to Work
[2020-01-02 06:13] LABS: A TYPE INFLUENZA AG NEGATIVE (NEGATIVE); ALBUMIN 4.2 g/dL (3.5-5.0); ALKALINE PHOSPHATASE 94 U/L (38-126); ANION GAP 8 (5-19); ASPARTATE AMINO TRANSFERASE 35 U/L (14-36); B INFLUENZA AG NEGATIVE (NEGATIVE); BILIRUBIN,TOTAL 0.3 mg/dL (0.2-1.3); BLOOD UREA NITROGEN 13 mg/dL (7-20); CALCIUM 9.5 mg/dL (8.4-10.2); CARBON DIOXIDE 28 mmol/L (22-30); CHLORIDE 98 mmol/L (98-107); GLUCOSE 103 mg/dL (75-110); POTASSIUM 4.9 mmol/L (3.6-5.0); TOTAL PROTEIN 7.2 g/dL (6.3-8.2)
[2020-01-02] MEDS ORDERED: ALBUTEROL SULFATE 0.083% NEB 2.5 MG/3 ML AMPUL NEB ONE (06:18)
[2020-01-02] MEDS ORDERED: ALBUTEROL SULFATE HFA (90 MCG/PUFF) 8 GM MDI IH ONE (06:19)
[2020-01-02] MEDS ORDERED: ACETAMINOPHEN 325 MG TABLET PO ONE (06:36)
[2020-01-02 07:27] VITALS: BP 124/58
== END 2020-01-02 07:29 | disposition home or self-care (01) ==
LOC: ER 04:47
DX: J45.901 Unspecified asthma with (acute) exacerbation (principal); J98.8 Other specified respiratory disorders; R50.9 Fever, unspecified; R05 Cough; Z20.828 Contact with and (suspected) exposure to other viral communicable diseases; Z87.891 Personal history of nicotine dependence
CPT/HCPCS: 94640 ×2; 99283; 96361; 96374; 36415; 87070; 87880; 84703; 85025; 87635; 80053; 87804; 71045; J2930; J7030; J7620; J3490

== ENCOUNTER 2020-06-29 23:15 | Emergency (ER) | payer MEDICAID, SELFPAY ==
[2020-06-29 23:49] VITALS: BP 144/71
--- NOTE | 2020-06-30 00:18 | ER Document Report ---
ED General - General Chief Complaint: Congestion Stated Complaint: CONGESTION Time Seen by Provider: 06/30/20 00:14 Mode of Arrival: Ambulatory Information source: Patient Notes: 35-year-old female with history of asthma coming in today with congestion that has settled in her chest. Coughing up yellow sputum. Symptoms have been going on for several days. Wheezing has been controlled but still having lots of sputum production. No fevers or shaking chills. TRAVEL OUTSIDE OF THE [place] IN LAST 30 DAYS: No - Related Data Allergies/Adverse Reactions: No Known Allergies Allergy (Verified 10/11/19 15:09) Past Medical History - Social History Smoking Status: Current Every Day Smoker Frequency of alcohol use: None Drug Abuse: None Family History: Arthritis, Malignancy, CAD, COPD, CVA, DM, Hyperlipidemia, Hypertension, Reviewed & Not Pertinent Patient has homicidal ideation: No Pulmonary Medical History: Reports: Hx Asthma, Hx Pneumonia Neurological Medical History: Reports: Hx Migraine Renal/ Medical History: Denies: Hx Peritoneal Dialysis GI Medical History: Reports: Hx Gastroesophageal Reflux Disease Musculoskeletal Medical History: Reports Hx Musculoskeletal Trauma Psychiatric Medical History: Reports: Hx Depression - depression Traumatic Medical History: Reports: Hx Fractures - foot left Past Surgical History: Reports: Hx Adenoidectomy, Hx Myringotomy, Hx Tonsillectomy - Immunizations Immunizations up to date: Yes Hx Diphtheria, Pertussis, Tetanus Vaccination: Yes Review of Systems - Review of Systems Notes: Constitutional: No fevers. No chills. EENT: No eye redness. No eye pain. No ear pain. No sore throat. Cardiovascular: No chest pain. No palpitations. Respiratory: Productive cough Gastrointestinal: No abdominal pain. No nausea, vomiting, or diarrhea. Genitourinary: Atraumatic. No lesions. No pain. No discharge. Musculoskeletal: Atraumatic. No swelling. No deformities. Skin: No rash or lesions. Lymphatic: No swollen lymph nodes. Neurologic: No headache. No syncope. Psychiatric: No suicidal or homicidal ideation. Physical Exam - Vital signs Vitals: Temp Pulse Resp BP Pulse Ox 98.0 F 87 20 144/71 H 100 06/29/20 23:48 06/29/20 23:48 06/29/20 23:48 06/29/20 23:48 06/29/20 23:48 - Notes Notes: General: Well-developed, well-nourished. In no acute distress. Non-toxic appearing. Cardiac: Well-perfused. Regular rate and rhythm. No murmurs, rubs, or gallops. Pulmonary: No respiratory distress. No cyanosis. Bilateral lung fiels are clear to auscultation. Abdominal: Non-distended. Non-rigid. Bowels sounds are present in all four quadrants. No guarding or rebound. HEENT: Head is atraumatic. Conjunctivae not reddened. No tearing. PERRL. EOMI. Orbits atraumatic. No periorbital swelling or erythema. Oropharynx is without erythema, swelling, or exudates. Neck: Supple. No adenopathy. No meningismus. Dermatologic: Warm with good turgor. No rash. Atraumatic. Chest: Atraumatic. No chest wall tenderness to palpation. Musculoskeletal: Moves all extremities well. No range of motion deficits. no muscular or joint tenderness. No paraspinal muscle tenderness. no midline spinal tenderness or step-off. Genitourinary: Examination deferred Neurologic: No gross neurologic deficits. Psychiatric: Normal mood. Course - Vital Signs Vital signs: Temp Pulse Resp BP Pulse Ox 98.0 F 87 20 144/71 H 100 06/29/20 23:48 06/29/20 23:48 06/29/20 23:48 06/29/20 23:48 06/29/20 23:48 Discharge - Discharge Clinical Impression: Elevated blood pressure reading Upper respiratory infection Qualifiers: URI type: unspecified URI Qualified Code(s): J06.9 - Acute upper respiratory infection, unspecified Condition: Good Disposition: HOME, SELF-CARE Instructions: Upper Respiratory Illness ([facility]) Prescriptions: Guaifenesin [Mucus ER] 600 mg PO Q12H #20 tab.er.12h Azithromycin [Zithromax 250 mg Tablet] 250 mg PO ASDIR PRN #6 tablet PRN Reason:
== END 2020-06-30 00:23 | disposition home or self-care (01) ==
LOC: ER 23:15
DX: J06.9 Acute upper respiratory infection, unspecified (principal); J45.909 Unspecified asthma, uncomplicated; F17.200 Nicotine dependence, unspecified, uncomplicated; R05 Cough; Z87.01 Personal history of pneumonia (recurrent)
CPT/HCPCS: 99283

== ENCOUNTER 2020-08-28 22:18 | Emergency (ER) | payer MEDICAID ==
--- NOTE | 2020-08-28 22:44 | ER Document Report ---
ED Medical Screen (RME) - General Chief Complaint: Chest Pain Stated Complaint: SHORTNESS OF BREATH,CONGESTION Time Seen by Provider: 08/28/20 22:35 Mode of Arrival: Ambulatory Information source: Patient TRAVEL OUTSIDE OF THE [place] IN LAST 30 DAYS: No - HPI Patient complains to provider of: Chest pain, abdominal pain, nausea vomiting Notes: 08/28/20 22:43 Patient here with multiple complaints. The patient states for the last week she is been having some upper abdominal pain with some nausea vomiting. She states she has a prior history of opiate abuse as well as alcohol abuse. She states that about 2 weeks ago she did start drinking some alcohol again but it was a small amount. She reports that yesterday she started having some chest pain. She reports smoking a cigarette earlier today and found out that it was laced with cocaine and after doing so her chest pain got worse. She states she has a former history of opiate abuse and does not want any sort of opiate medications. Exam: No distress, nontoxic appearing. Lungs clear and equal throughout. Tachycardia. Right upper quadrant tenderness on limited triage abdominal exam. An initial examination was made on the patient as part of the triage process, and it was determined a more comprehensive evaluation was necessary. Initial orders were placed and patient was transferred to another provider in the ED who assumed care and finished evaluation and plan. - Related Data Allergies/Adverse Reactions: No Known Allergies Allergy (Verified 08/28/20 22:34) Past Medical History - Social History Frequency of alcohol use: None Drug Abuse: Cocaine Family history: None Pulmonary Medical History: Reports: Hx Asthma, Hx Pneumonia Neurological Medical History: Reports: Hx Migraine Renal/ Medical History: Denies: Hx Peritoneal Dialysis GI Medical History: Reports: Hx Gastroesophageal Reflux Disease Musculoskeltal Medical History: Reports Hx Musculoskeletal Trauma Psychiatric Medical History: Reports: Hx Depression - depression Traumatic Medical History: Reports: Hx Fractures - foot left Past Surgical History: Reports: Hx Adenoidectomy, Hx Myringotomy, Hx Tonsillectomy - Immunizations Immunizations up to date: Yes Hx Diphtheria, Pertussis, Tetanus Vaccination: Yes Physical Exam - Vital signs Vitals: Temp Pulse Resp BP Pulse Ox 97.8 F 100 21 H 150/78 H 99 08/28/20 22:34 08/28/20 22:34 08/28/20 22:34 08/28/20 22:34 08/28/20 22:34 Course - Vital Signs Vital signs: Temp Pulse Resp BP Pulse Ox 97.8 F 100 21 H 150/78 H 99 08/28/20 22:34 08/28/20 22:34 08/28/20 22:34 08/28/20 22:34 08/28/20 22:34
[2020-08-28] MEDS ORDERED: IPRATROPIUM/ALBUTEROL 0.5-2.5 MG/3 ML AMPUL NEB ONE (22:54)
[2020-08-28] MEDS ORDERED: PREDNISONE 20 MG TABLET PO ONE (22:54)
--- NOTE | 2020-08-28 22:58 | ER Document Report ---
ED Respiratory Problem - General Chief Complaint: Flu Symptoms Stated Complaint: SHORTNESS OF BREATH,CONGESTION Time Seen by Provider: 08/28/20 22:35 Mode of Arrival: Ambulatory Information source: Patient TRAVEL OUTSIDE OF THE [place] IN LAST 30 DAYS: No - HPI Patient complains to provider of: Asthma Notes: Patient here with complaint of cough, nasal congestion, wheezing for the last 2 days. The patient has a history of asthma and states this feels like her typical asthma flareups. She denies any fever. She denies any chest pain. She does complain of some mild shortness of breath which is typical when she has an asthma flare. She denies any history of hypertension, high cholesterol, diabetes, CAD. She is a former smoker. She denies drug use. She denies oral hormones, recent long trips or surgeries, cancer, leg pain or leg swelling, history of DVT or PE. No fevers. No specific Covid exposure. No rash. No sev ere headache. No blurred or loss of vision. No numbness, tingling, weakness. No other complaints. - Related Data Allergies/Adverse Reactions: No Known Allergies Allergy (Verified 08/28/20 22:47) Home Medications: ASTHMA MEDS Past Medical History - General Information source: Patient - Social History Smoking Status: Former Smoker Frequency of alcohol use: None Drug Abuse: None Family History: Arthritis, Malignancy, CAD, COPD, CVA, DM, Hyperlipidemia, Hypertension, Reviewed & Not Pertinent Pulmonary Medical History: Reports: Hx Asthma, Hx Pneumonia Neurological Medical History: Reports: Hx Migraine Renal/ Medical History: Denies: Hx Peritoneal Dialysis GI Medical History: Reports: Hx Gastroesophageal Reflux Disease Musculoskeletal Medical History: Reports Hx Musculoskeletal Trauma Psychiatric Medical History: Reports: Hx Depression - depression Traumatic Medical History: Reports: Hx Fractures - foot left Past Surgical History: Reports: Hx Adenoidectomy, Hx Myringotomy, Hx Tonsillectomy - Immunizations Immunizations up to date: Yes Hx Diphtheria, Pertussis, Tetanus Vaccination: Yes Review of Systems - Review of Systems -: Yes All other systems reviewed and negative Physical Exam - Vital signs Vitals: Temp Pulse Resp BP Pulse Ox 97.8 F 100 21 H 150/78 H 99 08/28/20 22:34 08/28/20 22:34 08/28/20 22:34 08/28/20 22:34 08/28/20 22:34 - Notes Notes: GENERAL: alert, cooperative, nontoxic, no distress. HEAD: normocephalic, atraumatic EYES: conjunctiva pink without discharge, no external redness or swelling. EARS: no external swelling, no external redness, no mastoid redness, swelling, tenderness. Ear canals are clear without swelling or drainage. TMs pearly pate, no redness, no bulging, normal landmarks, no perforation. Scarring noted on both TMs. NOSE: atraumatic, no external swelling. clear rhinorrhea noted. MOUTH/THROAT: mucous membranes moist and pink, posterior pharynx without erythema, swelling, exudate. No trismus or drooling. Voice is normal, no stridor. NECK: soft, supple, full range of motion, no meningismus. CHEST: no distress, inspiratory and expiratory wheezing throughout with good air movement. No crackles. No stridor. CARDIAC: regular rate and rhythm, no murmur EXTREMITIES: full range of motion of all extremities. No redness, no swelling. NEURO: alert and oriented A&O3, no focal deficits, full range of motion of all extremities. PYSCH: appropriate mood, affect. Patient is cooperative. SKIN: pink, warm, dry, no rash. Course - Re-evaluation Re-evalutation: 08/29/20 00:01 Reassessment after breathing treatment. Patient states she does not feel any better. She has improved air movement but with some worsening wheezing after her initial DuoNeb. I have ordered 2 more, and will reassess. Chest x-ray is unremarkable. We will continue to monitor. 08/29/20 00:47 Patient is resting comfortably at this time. She states she is feeling better after her other breathing treatments. She continues to have some inspiratory next Tory wheezing but with great air movement. She is able to speak in full sentences and is in no distress. Patient is not hypoxic with O2 saturations at 99%. At this point we discussed the need for admission versus discharge and outpatient treatment. The patient states that she does feel well enough to go home and allow her steroids time to work. Patient be discharged home with a prescription for albuterol as well as prednisone. Instructions to follow-up in the next 24 to 48 hours if she is not improving, and to follow-up sooner if she gets worse in any way. The patient verbalized understanding of this. Covid swab was obtained and is currently pending. Patient was instructed to quarantine until she gets her Covid results. Patient states this feels like asthma exacerbation which she has a history of. Symptoms are atypical for ACS and she has no ACS risk factors. Chest x-ray shows no acute abnormality. Patient has no pulmonary embolism risk factors. Overall the patient looks well and will be discharged home. Strict return precautions were given. The patient's emergency department workup and current diagnosis were explained to the patient and or family. Follow-up instructions were provided. Medications if prescribed were discussed. Instructions for when to return to the emergency department including specific worrisome symptoms were discussed with the patient and/or family. - Vital Signs Vital signs: Temp Pulse Resp BP Pulse Ox 97.8 F 100 21 H 150/78 H 99 08/28/20 22:34 08/28/20 22:34 08/28/20 22:34 08/28/20 22:34 08/28/20 22:34 - Laboratory Results Critical Laboratory Results Reviewed: No Critical Results - Radiology Results Critical Radiology Results Reviewed: No Critical Results Discharge - Discharge Clinical Impression: Person under investigation for COVID-19 Asthma exacerbation Qualifiers: Asthma severity: moderate Asthma persistence: persistent Qualified Code(s): J45.41 - Moderate persistent asthma with (acute) exacerbation Condition: Stable Disposition: HOME, SELF-CARE Instructions: COVID-19 Guidance for Persons Under Investigation, Asthma ([facility]) Additional Instructions: Take medications as prescribed. Drink plenty fluids. Use your albuterol every 4 hours while awake. Follow-up if not improving the next 24 to 48 hours. Follow-up sooner for worsening symptoms, severe chest pain, high fever, difficulty breathing, or for any further concerns. You should quarantine until you receive your Covid results. If your Covid is positive, you must quarantine for 10 days from the start of your symptoms. If it is negative, you may come out of quarantine as long as you are not running fevers. Prescriptions: Prednisone [Deltasone 20 mg Tablet] 40 mg PO DAILY #10 tablet Albuterol Sulfate [Proair HFA Inhalation Aerosol 8.5 gm MDI] 2 puff IH Q4H PRN #1 mdi PRN Reason: Referrals: [facility] [Provider Group] - Follow up as needed
--- NOTE | 2020-08-28 23:23 | RADIOLOGY REPORT (SQ) ---
CLINICAL HISTORY: CP COMPARISON: 07/21/2020. TECHNIQUE: XR CHEST 2 VIEWS 08/28/2020 10:42 PM [employer] FINDINGS: Cardiac silhouette is normal in size. Lungs are clear without consolidation, atelectasis, mass or edema. There is no pleural effusion. There is no pneumothorax. There are no acute osseous findings. IMPRESSION: Clear lungs.
[2020-08-29] MEDS ORDERED: IPRATROPIUM/ALBUTEROL 0.5-2.5 MG/3 ML AMPUL NEB ONE (00:01)
[2020-08-29] MEDS ORDERED: ALBUTEROL SULFATE HFA (90 MCG/PUFF) 8 GM MDI (1 MDI/ER DISP) IH ONE (00:49)
[2020-08-29 01:02] VITALS: BP 128/85
--- NOTE | 2020-08-29 07:31 | EKG REPORT ---
SEVERITY:- ABNORMAL ECG - SINUS RHYTHM ABNORMAL Q SUGGESTS ANTERIOR INFARCT BORDERLINE T ABNORMALITIES, INFERIOR LEADS BORDERLINE PROLONGED QT INTERVAL : Confirmed by: Polo Londono MD 29-Aug-2020 07:31:10
== END 2020-08-29 01:02 | disposition home or self-care (01) ==
LOC: ER 22:18
DX: U07.1 COVID-19 (principal); J45.41 Moderate persistent asthma with (acute) exacerbation; R05 Cough; R09.81 Nasal congestion; J34.89 Other specified disorders of nose and nasal sinuses; Z79.899 Other long term (current) drug therapy; Z87.891 Personal history of nicotine dependence; Z87.01 Personal history of pneumonia (recurrent)
CPT/HCPCS: 94640 ×2; 99285; 87635; 71046; 93005; 93010; J7512; J3490; C9803; 36415